=== PATIENT | female | born 1995 ===

== ENCOUNTER 2020-05-04 15:11 | Outpatient (REF) | payer MEDICAID, SELFPAY | END 2020-05-04 15:12 | disposition home or self-care (01) | LOC: HO.LAB 15:11 | PROVIDERS: Visit Provider Internal Medicine | DX: Z20.822 Contact with and (suspected) exposure to COVID-19 (principal) | CPT/HCPCS: 36415; C9803; U0003 ==

== ENCOUNTER 2020-05-21 12:30 | Emergency (ER) | payer MEDICAID, SELFPAY ==
[2020-05-21 12:47] VITALS: BP 108/44; PULSE 67; RESP 16; TEMP 36.6; O2SAT 96; BMI 28.1
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
--- NOTE | 2020-05-21 13:21 | XR_ITS ---
EXAMINATION: XR RIBS, RIGHT CLINICAL INFORMATION: Injury, evaluate for fracture COMPARISON: None TECHNIQUE: 3 views of the right ribs were obtained. FINDINGS: Lungs are clear. No consolidation, pneumothorax, or pleural effusion. The cardiomediastinal silhouette and pulmonary vasculature are normal. Osseous structures are unremarkable. Ribs are intact. No fractures are identified. XR/XR ribs RT min 3V w CXR1V IMPRESSION: Unremarkable examination.
== END 2020-05-21 14:14 | disposition home or self-care (01) ==
PROVIDERS: Emergency Provider Internal Medicine
DX: S29.011A Strain of muscle and tendon of front wall of thorax, initial encounter (principal); R07.81 Pleurodynia; X50.9XXA Other and unspecified overexertion or strenuous movements or postures, initial encounter; Y93.9 Activity, unspecified; Y92.9 Unspecified place or not applicable; Y99.9 Unspecified external cause status; Z79.899 Other long term (current) drug therapy
CPT/HCPCS: 71101; 99283

== ENCOUNTER 2020-07-30 14:51 | Emergency (ER) | payer MEDICAID, SELFPAY ==
--- NOTE | ~2020-07-30 | XR_ITS ---
EXAMINATION: XR CHEST CLINICAL INFORMATION: Chest pain COMPARISON: Chest radiograph 05/21/2020 TECHNIQUE: Frontal view of the chest was obtained. FINDINGS: Once again, no significant abnormality is noted involving the heart, lungs, mediastinum, bony thorax or soft tissues. XR/XR chest 1V IMPRESSION: Unremarkable examination.
[2020-07-30 15:09] VITALS: BP 109/69; PULSE 72; RESP 18; TEMP 36.4; O2SAT 100; BMI 26.9
--- NOTE | 2020-07-30 16:06 | ED.GENADULT ---
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, no shortness of breath no abdominal pain no nausea no vomiting Related Data Previous Rx's Medication Instructions Recorded cyclobenzaprine 10 mg PO TID PRN #20 tab 05/21/20 lidocaine [Lidoderm] 1 patch TOPICAL DAILY #15 ea 05/21/20 naproxen 375 mg PO BID PRN #20 tab 05/21/20 ibuprofen 600 mg PO Q6H PRN #20 tab 07/30/20 lidocaine 1 patch TOPICAL DAILY PRN #15 ea 07/30/20 Allergies Allergy/AdvReac Type Severity Reaction Status Date / Time No Known Allergies Allergy Verified 07/30/20 15:11 Review of Systems Review of Systems: Positive for right-sided rib and chest pain with movement Negatives are no fever no chills no dizziness no weakness no shortness of breath no palpitations no exertional symptoms no radiation of the pain no abdominal pain no nausea no vomiting no numbness weakness or tingling Yes all other systems are reviewed and are negative PMFSH Past Medical History Source: nursing notes reviewed Medical History No known health problems Social History Social History Advance Directives: No Advance Directives Information Provided: No Physical Exam Vital Signs: Vital Signs: Last Vital Signs Temp 97.6 F 07/30/20 15:09 Pulse 72 07/30/20 15:09 Resp 18 07/30/20 15:09 BP 109/69 07/30/20 15:09 Pulse Ox 100 07/30/20 15:09 Body Mass Index 26.9 General appearance is no acute distress, common cooperative Head is normocephalic atraumatic Neck is supple nontender The chest breath sounds are clear to auscultation bilaterally with full symmetric breath sounds, there is tenderness to the chest wall on the right lateral chest, pain is easily reproduced with movement and deep breath The abdomen is soft nontender The extremities no edema, no calf tenderness or swelling, full range of motion x4 Skin no rash Neuro no focal deficit Course Course Course Narrative: Right rib x-ray and chest x-ray were normal, exam is consistent with an injury to the muscles of the chest wall and patient is discharged Discharge Plan Discharge Clinical Impression: Muscle strain of chest wall Patient Disposition: Home, Self-Care Additional Instructions: Chest x-ray was normal, most likely you have strained muscle on the right side of the chest wall You can try lidocaine patch, Motrin, Tylenol You can take extra-strength Tylenol available [id number] 500 mg 2 tablets for a total of a 1000 mg 3 times a day as needed Follow with primary doctor Return any concerns Prescriptions: New lidocaine 5 % adhesive patch,medicated 1 patch topical DAILY PRN (Reason: pain) Qty: 15 RF: 0 ibuprofen 600 mg tablet 600 mg PO Q6H PRN (Reason: pain) Qty: 20 RF: 0 No Action cyclobenzaprine 10 mg tablet 10 mg PO TID PRN (Reason: muscle spasm) Qty: 20 RF: 0 lidocaine [Lidoderm] 5 % adhesive patch,medicated 1 patch topical DAILY Qty: 15 RF: 0 naproxen 375 mg tablet 375 mg PO BID PRN (Reason: pain) Qty: 20 RF: 0 Stand Alone Forms: Work/School Release Interventions: ED Discharge Assessment Last Done: 07/30/20 16:45 Discharge Date/Time: 07/30/20 16:46
== END 2020-07-30 16:46 | disposition home or self-care (01) ==
PROVIDERS: Emergency Provider Emergency Medicine
DX: R10.30 Lower abdominal pain, unspecified (principal); R07.81 Pleurodynia; Z79.899 Other long term (current) drug therapy
CPT/HCPCS: 71045; 99283

== ENCOUNTER 2020-12-06 15:31 | Emergency (ER) | payer OTHER, MEDICAID, SELFPAY ==
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
[2020-12-06 16:21] VITALS: BP 121/44; PULSE 62; RESP 16; TEMP 37; O2SAT 95; BMI 27.8
[2020-12-06] MEDS: Acetaminophen 325 MG TABLET 650 MG PO (16:28)
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
== END 2020-12-06 19:02 | disposition home or self-care (01) ==
PROVIDERS: Emergency Provider Emergency Medicine
DX: S39.012A Strain of muscle, fascia and tendon of lower back, initial encounter (principal); V89.2XXA Person injured in unspecified motor-vehicle accident, traffic, initial encounter; Y93.9 Activity, unspecified; Y92.410 Unspecified street and highway as the place of occurrence of the external cause; Y99.9 Unspecified external cause status
CPT/HCPCS: 72040; 72100; 99283; 99284

== ENCOUNTER 2021-07-19 09:27 | Emergency (ER) | payer MEDICAID, SELFPAY ==
--- NOTE | ~2021-07-19 | US_ITS ---
EXAMINATION: US OBSTETRICAL ULTRASOUND CLINICAL INFORMATION: Vaginal bleeding, . COMPARISON: None. LMP: 06/03/2021. Gestational age by maternal dates is 6 weeks and 4 days. Estimated date of delivery by maternal dates is 02/28/2022. TECHNIQUE: Transabdominal imaging of pelvis is performed. FINDINGS: There is nonvisualization of distal sac, yolk sac or pole. MATERNAL ADNEXA: The right maternal ovary measures 2.9 x 2.5 x 2.4 cm. There is a small corpus luteal cyst measuring 1.7 x 1.2 x 1.4 cm. Adjacent and medial to the right ovary isn't avascular solid echogenic area question exophytic fibroid or an ectopic. It measures 1.2 x 0.9 x 0.9 cm. The left maternal ovary measures 2.2 x 2.1 x 2.1 cm. No lesion seen There is no significant maternal adnexal mass. No maternal pelvic ascites. US/US OB pelvic and transvaginal IMPRESSION: Intrauterine gestational sac, pole or yolk sac is not seen. There is solid echogenic lesion adjacent to the right ovary measured measuring 1.2 x 0.9 x 0.9 cm. Differential diagnoses includes exophytic fibroid versus an ectopic. Recommend follow-up ultrasound in 1-2 weeks and ROBOTIC MAINTENANCE TECHNICIAN consultation
--- NOTE | ~2021-07-19 | US_ITS ---
EXAMINATION: US OBSTETRICAL ULTRASOUND CLINICAL INFORMATION: Vaginal bleeding, . COMPARISON: None. LMP: 06/03/2021. Gestational age by maternal dates is 6 weeks and 4 days. Estimated date of delivery by maternal dates is 02/28/2022. TECHNIQUE: Transabdominal imaging of pelvis is performed. FINDINGS: There is nonvisualization of distal sac, yolk sac or pole. MATERNAL ADNEXA: The right maternal ovary measures 2.9 x 2.5 x 2.4 cm. There is a small corpus luteal cyst measuring 1.7 x 1.2 x 1.4 cm. Adjacent and medial to the right ovary isn't avascular solid echogenic area question exophytic fibroid or an ectopic. It measures 1.2 x 0.9 x 0.9 cm. The left maternal ovary measures 2.2 x 2.1 x 2.1 cm. No lesion seen There is no significant maternal adnexal mass. No maternal pelvic ascites. US/US pelvic ovarian doppler IMPRESSION: Intrauterine gestational sac, pole or yolk sac is not seen. There is solid echogenic lesion adjacent to the right ovary measured measuring 1.2 x 0.9 x 0.9 cm. Differential diagnoses includes exophytic fibroid versus an ectopic. Recommend follow-up ultrasound in 1-2 weeks and BETA TESTER consultation
[2021-07-19 09:45] VITALS: BP 114/45; PULSE 63; RESP 18; TEMP 36.7; O2SAT 100; BMI 27.1
[2021-07-19 10:02] VITALS: BP 113/58; PULSE 63; RESP 14; TEMP 36.7; O2SAT 100
--- NOTE | 2021-07-19 10:27 | ED_ITS ---
HPI - General Chief complaint: Vaginal Bleeding Stated complaint: vag bleeding - ?6wks preg Time Seen by Provider: 07/19/21 09:56 Source: patient Mode of arrival: ambulatory Limitations: no limitations History of Present Illness HPI Narrative: 26 y/o female, G0PO, presents for positive test at home 2 days ago, and some spotting. Patient's last menstrual period was June 03. The spotting is scant and only when she wipes. Red spots on toilet paper. Not enough blood to even go onto a pad. No clots. She is on the depot shot. Patient has never been . Denies nausea or vomiting, denies pelvic pain or cramping, denies vaginal discharge or vaginal odor, denies abdominal pain. No fevers. Patient has never seen an photograph editor and did not start prenatals yet. Patient states the man she is sexually active with has another sex partner and she has concerns for sexually transmitted diseases MD Complaint: vaginal bleeding Onset (ago): day(s) (1) Associated symptoms: denies other symptoms Vaginal discharge: none Vaginal bleeding: other (scant spotting) Date of Last Menstrual Period: 06/03/21 Patient : Yes care: none Related Data Previous Rx's Medication Instructions Recorded cyclobenzaprine 10 mg tablet 10 mg PO TID PRN #20 tab 05/21/20 lidocaine 5 % topical patch 1 patch TOPICAL DAILY #15 ea 05/21/20 (Lidoderm) naproxen 375 mg tablet 375 mg PO BID PRN #20 tab 05/21/20 ibuprofen 600 mg tablet 600 mg PO Q6H PRN #20 tab 07/30/20 lidocaine 5 % topical patch 1 patch TOPICAL DAILY PRN #15 ea 07/30/20 cyclobenzaprine 10 mg tablet 10 mg PO TID PRN #18 tab 12/06/20 naproxen 500 mg tablet 500 mg PO BID PRN #20 tab 12/06/20 prenat.vits,cheri,[id number] 1 tab PO BEDTIME 30 Days #30 tab 07/19/21 Allergies Allergy/AdvReac Type Severity Reaction Status Date / Time No Known Allergies Allergy Verified 07/30/20 15:11 Review of Systems Constitutional: Constitutional: Denies body ache(s), Denies chills, Denies fatigue, Denies fever(s), Denies headache(s), Denies malaise and Denies weakness Eyes: Eyes: Denies blurry vision and Denies diplopia ENT: Denies vertigo, Denies dizziness, Denies otalgia, Denies headache(s), Denies mouth pain, Denies post nasal drip, Denies sinus pain, Denies sinus pressure, Denies sore throat and Denies throat swelling Cardiovascular: Cardiovascular: Denies chest pain, Denies syncope, Denies leg edema, Denies lightheadedness, Denies Loss of Consciousness, Denies palpitations and Denies dyspnea Respiratory: Respiratory: Denies chest congestion, Denies cough and Denies dyspnea Gastrointestinal: Gastrointestinal: Denies abdominal pain, Denies hematochezia, Denies constipation, Denies diarrhea and Denies vomiting Genitourinary: Genitourinary: Reports abnormal vaginal bleeding, Reports amenorrhea, Denies hematuria, Denies genital pruritis, Denies genital lesions, Denies dysuria, Denies flank pain, Denies urinary incontinence, Denies urinary urgency, Denies vaginal discharge, Denies vaginal odor and Denies vaginal pruritus Musculoskeletal: Musculoskeletal: Reports no additional musculoskeletal complaints and Denies back pain Integumentary/Breasts: Skin/Breast: Reports system reviewed and no additional complaints, except as docu Neurologic: Denies confusion, Denies vertigo, Denies dizziness, Denies syncope, Denies headache(s) and Denies weakness Psychiatric: Psychiatric: Denies anxiety, Denies confusion and Denies depression Endocrine: Endocrine: Denies fatigue and Denies palpitations Allergic/Immunologic: Allergic/Immunologic: Denies throat swelling PMFSH Past Medical History Medical History No known health problems Date of Last Menstrual Period: 06/03/21 Social History Social History Advance Directives: No Advance Directives Information Provided: No Patient : Yes Physical Exam Vital Signs: Vital Signs: Last Vital Signs Temp 98.1 F 07/19/21 10:02 Pulse 63 07/19/21 10:02 Resp 14 07/19/21 10:02 BP 113/58 L 07/19/21 10:02 Pulse Ox 100 07/19/21 10:02 BMI result Body Mass Index 27.1 Const: General: No confusion Nutritional Appearance: well nourished Orientation/consciousness: No confusion Limitations: no limitations HEENT: Head: Yes normal to inspection, Yes normocephalic and Yes atraumatic Ears: hearing grossly normal bilaterally, external ears normal, TM's normal bilaterally and EAC's normal General nose exam: Normal external nose present Face and sinus: Yes normal facial exam and Yes sinuses nontender Mouth: Normal oral and palatal mucosa present Throat: Yes posterior oropharynx normal Eyes: Conjunctivae: conjunctivae normal Pupils: Equal, round and reactive pupils present EOM: EOMs intact bilaterally Neck: Neck: Yes full ROM, Yes no lymphadenopathy and Yes supple Resp: Effort & Inspection: normal respiratory effort and able to speak in complete sentences Auscultation: clear to auscultation bilaterally, no crackles, no rales, no rhonchi and no wheezes Cardio: Rate: regular rate Rhythm: regular rhythm Heart sounds: S1 normal heart sound present and S2 normal heart sound present GI: Inspection: Yes normal to inspection Palpation (GI): Soft to palpation, nontender, no guarding and not rigid Percussion: Yes normal to percussion Auscultation: normal bowel sounds : External Female Exam: normal external appearance, normal appearance of the urethra, No erythema, No externally tender, No external swelling and No lesion Speculum Exam - Vagina: normal appearance of the vagina, normal palpation, not erythematous, vaginal bleeding (scant), No tissue present in vagina and nontender Speculum Exam - Cervix: normal appearance of the cervix, Cervical os closed and nontender Bimanual exam- vagina & uterus: normal bimanual exam, normal palpation and No Cervical tenderness present Bimanual Exam- Adnexa, other: normal adnexae, no tenderness and No adnexal tenderness OB/external & speculum: vaginal bleeding (scant); No no tissue noted in vagina Skin: General skin exam: no rashes or lesions noted Neuro: General: No confusion Cranial nerves: Yes Equal, round and reactive pupils present Extrem: General: Yes normal to inspection and Yes full ROM Psych: Appearance: grossly normal Affect: normal affect Attitude: cooperative Thought process: Normal thought process present Course Course Course Narrative: 26-year-old female who tested positive at home for 2 days ago presents with scant spotting. Patient also has concerns for STIs. On exam, patient has stable vitals, benign abdominal exam, no adnexal tenderness or cervical motion tenderness. On speculum exam, no tissue or clots in vaginal vault, scant vaginal bleeding, os is closed. Ordered labs, ABO Rh, hCG quant, and STD testing including gonorrhea, chlamydia, bacterial vaginosis, Trichomonas, HIV, hepatitis, yeast. Ordered ultrasound both Doppler and transvaginal. Reevaluation(s) Reevaluation #1: US/US pelvic ovarian doppler IMPRESSION: Intrauterine gestational sac, pole or yolk sac is not seen. There is solid echogenic lesion adjacent to the right ovary measured measuring 1.2 x 0.9 x 0.9 cm. Differential diagnoses includes exophytic fibroid versus an ectopic. Recommend follow-up ultrasound in 1-2 weeks and ELECTRONIC SYSTEM ENGINEER consultation HCG 731. [place] texted Dr Finn, who will come in and see the patient in the ED. Reevaluation #2: Spoke with Dr. Finn, who came and saw the patient. He stated patient could be having an early intrauterine , spontaneous , or ectopic . He discussed D&C versus expectant management with her. She would like to do expected management. He would like her HCG to be drawn in 48 hours and has sent a lab order to [facility] lab. Patient instructed to go to Lab on FridayJuly 21, to get hCG drawn. He will draw another hCG when he sees her on the office on Friday. His office will call her for an appointment on Friday. Patient verbalized agreement and understanding of this plan. Patient had concern for STDs, we tested her today, but she wants to wait for the results to come back before being treated. I relayed this information to Dr. Finn Give return precautions for worsening vaginal bleeding, pelvic pain, abdominal pain nausea or vomiting. Patient's chlamydia and gonorrhea just returned, both are negative, I told pat ient is results. MDM - OB/Uterine Contractions Lab Data Result diagrams: 07/19/21 10:40 07/19/21 10:40 Labs: Lab Results 07/19/21 07/19/21 07/19/21 Range/Units 10:40 10:40 10:40 WBC 8.0 (4.8-10.8) X10*3/uL RBC 4.38 (4.20-5.50) X10*6/uL Hgb 12.2 (12.0-16.0) g/dl Hct 37.8 (37.0-47.0) % MCV 86.3 (80.0-98.0) fL MCH 27.9 (27.0-33.0) pg MCHC 32.3 (31.0-35.0) g/dl RDW 14.6 (11.0-16.0) % Plt Count 425 H (160-400) X10*3/uL MPV 9.6 (9.4-12.3) fL Immature Gran % (Auto) 0.5 H (0.0-0.4) % Neut % (Auto) 71.7 (45-73) % Lymph % (Auto) 20.4 (20-40) % [place] % (Auto) 5.7 (2-11) % Eos % (Auto) 1.5 (0-4) % Baso % (Auto) 0.2 (0-2) % Lymph # (Auto) 1.6 (1.2-4.9) X10*3/uL [place] # (Auto) 0.5 (0.1-1.2) X10*3/uL Eos # (Auto) 0.1 (0.0-0.4) X10*3/uL Baso # (Auto) 0.0 (0.0-0.2) X10*3/uL Abs Immat Gran (auto) 0.04 H (0.00-0.03) X10*3/uL Absolute Neuts (auto) 5.8 (2.0-8.3) x10*3/uL Absolute Nucleated RBC 0.000 (0.0-0.012) X10*3/uL Nucleated RBC % (auto) 0.0 (0.0-0.2) /100WBC Sodium 138 (135-145) mmol/L Potassium 4.1 (3.3-5.1) mmol/L Chloride 107 (96-108) mmol/L Carbon Dioxide 24 (22-29) mmol/L Anion Gap 11 L (12-20) BUN 7 L (9-16) mg/dL Creatinine 0.74 (0.5-1.4) mg/dL Estim Creat Clear Calc 101.7 Estimated GFR > 60 Random Glucose 90 (60-115) mg/dL Calcium 9.6 (8.4-10.2) mg/dL Total Bilirubin 0.3 (0.0-1.0) mg/dL AST 20 (5-31) U/L ALT 26 (0-31) U/L Alkaline Phosphatase 61 (39-117) U/L Total Protein 7.6 (6.5-8.0) g/dL Albumin 4.2 (3.5-5.0) g/dL Beta HCG, Quant 731 mIU/mL Urine Color YELLOW Urine Appearance HAZY Urine pH 6.0 (5.0-8.0) Ur Specific [place] 1.025 (1.005-1.025) Urine Protein NEG (NEG-TRACE) MG/DL Urine Glucose (UA) NEG (NEG) MG/DL Urine Ketones NEG (NEG) MG/DL Urine Blood 3+ H (NEG) Urine Nitrite NEG (NEG) Ur Leukocyte Esterase NEG (NEG) Urine RBC 0-2 (0) /HPF Urine WBC 0-2 (0-4) /HPF Ur Squamous Epith Cells 2+ /LPF Amorphous Sediment 1+ /LPF Urine Bacteria 1+ /LPF Urine Mucus 2+ /LPF Urine Test (NEGATIVE) Chlam trachomat DNA PCR (Not Detect.) N.gonorrhoeae DNA (PCR) (Not Detect.) Blood Type 07/19/21 07/19/21 07/19/21 Range/Units 10:40 10:40 10:50 WBC (4.8-10.8) X10*3/uL RBC (4.20-5.50) X10*6/uL Hgb (12.0-16.0) g/dl Hct (37.0-47.0) % MCV (80.0-98.0) fL MCH (27.0-33.0) pg MCHC (31.0-35.0) g/dl RDW (11.0-16.0) % Plt Count (160-400) X10*3/uL MPV (9.4-12.3) fL Immature Gran % (Auto) (0.0-0.4) % Neut % (Auto) (45-73) % Lymph % (Auto) (20-40) % [place] % (Auto) (2-11) % Eos % (Auto) (0-4) % Baso % (Auto) (0-2) % Lymph # (Auto) (1.2-4.9) X10*3/uL [place] # (Auto) (0.1-1.2) X10*3/uL Eos # (Auto) (0.0-0.4) X10*3/uL Baso # (Auto) (0.0-0.2) X10*3/uL Abs Immat Gran (auto) (0.00-0.03) X10*3/uL Absolute Neuts (auto) (2.0-8.3) x10*3/uL Absolute Nucleated RBC (0.0-0.012) X10*3/uL Nucleated RBC % (auto) (0.0-0.2) /100WBC Sodium (135-145) mmol/L Potassium (3.3-5.1) mmol/L Chloride (96-108) mmol/L Carbon Dioxide (22-29) mmol/L Anion Gap (12-20) BUN (9-16) mg/dL Creatinine (0.5-1.4) mg/dL Estim Creat Clear Calc Estimated GFR Random Glucose (60-115) mg/dL Calcium (8.4-10.2) mg/dL Total Bilirubin (0.0-1.0) mg/dL AST (5-31) U/L ALT (0-31) U/L Alkaline Phosphatase (39-117) U/L Total Protein (6.5-8.0) g/dL Albumin (3.5-5.0) g/dL Beta HCG, Quant mIU/mL Urine Color Urine Appearance Urine pH (5.0-8.0) Ur Specific [place] (1.005-1.025) Urine Protein (NEG-TRACE) MG/DL Urine Glucose (UA) (NEG) MG/DL Urine Ketones (NEG) MG/DL Urine Blood (NEG) Urine Nitrite (NEG) Ur Leukocyte Esterase (NEG) Urine RBC (0) /HPF Urine WBC (0-4) /HPF Ur Squamous Epith Cells /LPF Amorphous Sediment /LPF Urine Bacteria /LPF Urine Mucus /LPF Urine Test POSITIVE H (NEGATIVE) Chlam trachomat DNA PCR NOT DETECTED (Not Detect.) N.gonorrhoeae DNA (PCR) NOT DETECTED (Not Detect.) Blood Type A Positive Discharge Plan Discharge Clinical Impression: Early stage of , Vaginal bleeding Patient Disposition: Home, Self-Care Additional Instructions: Please call Dr Finn for an appointment on Friday at [phone] [facility] must [facility], and get your blood drawn for hormone test on Friday morning. The lab closes at noon, please get there before then. In you need another hormone drawn on Friday, they can do that in the office when you see Dr. Finn If you have pelvic pain, abdominal pain, heavy vaginal bleeding, nausea vomiting, please return to the emergency room Prescriptions: New tahminaat.vits,cheri,iur-[id number] Tablet 1 tab PO BEDTIME 30 Days Qty: 30 0RF No Action lidocaine 5 % adhesive patch,medicated 1 patch topical DAILY PRN (Reason: pain) Qty: 15 0RF Rx Instructions: leave on most painful area for up to 12 hrs ibuprofen 600 mg tablet 600 mg PO Q6H PRN (Reason: pain) Qty: 20 0RF cyclobenzaprine 10 mg tablet 10 mg PO TID PRN (Reason: muscle spasm) Qty: 20 0RF lidocaine [Lidoderm] 5 % adhesive patch,medicated 1 patch topical DAILY Qty: 15 0RF Rx Instructions: leave on most painful area for up to 12 hrs naproxen 375 mg tablet 375 mg PO BID PRN (Reason: pain) Qty: 20 0RF naproxen 500 mg tablet 500 mg PO BID PRN (Reason: pain) Qty: 20 0RF cyclobenzaprine 10 mg tablet 10 mg PO TID PRN (Reason: pain) Qty: 18 0RF Rx Instructions: side effect is drowsiness. Do not take at work or while driving. Referrals: Bruce Finn MD [Physician] - 2 days
[2021-07-19 10:56] LABS: Appearance Urine HAZY; Color Urine YELLOW; Glucose Urine UA NEG (NEG); Leukocyte Esterase Urine NEG (NEG); Nitrite Urine NEG (NEG); Specific Gravity - Urine 1.025 (1.005-1.025); Urine Blood 3+ (NEG); Urine Ketones NEG (NEG); Urine Protein NEG (NEG-TRACE)
[2021-07-19 10:57] LABS: UPreg QC Valid YES; Urine Pregnancy POSITIVE (NEGATIVE)
[2021-07-19 11:33] LABS: MANUAL DIFF FLAG NO
[2021-07-19 11:35] LABS: Bacteria Urine 1+ /LPF; Mucus Urine 2+ /LPF; RBC Urine 0-2 /HPF (0); Squamous Epithelial Cell Urine 2+ /LPF; WBC Urine 0-2 /HPF (0-4)
[2021-07-19 11:36] LABS: Amorphous Sediment Urine 1+ /LPF; Basophils Percent Auto 0.2 % (0-2); Eosinophils Absolute Auto 0.1 X10*3/uL (0.0-0.4); Eosinophils Percent Auto 1.5 % (0-4); Hematocrit 37.8 % (37.0-47.0); Hemoglobin 12.2 g/dl (12.0-16.0); Imm Gran Abs Auto 0.04 X10*3/uL (0.00-0.03); Imm Gran Pct Auto 0.5 % (0.0-0.4); Lymphocytes Absolute Auto 1.6 X10*3/uL (1.2-4.9); Lymphocytes Percent Auto 20.4 % (20-40); Mean Corpuscular HGB Conc 32.3 g/dl (31.0-35.0); Mean Corpuscular Hemoglobin 27.9 pg (27.0-33.0); Mean Corpuscular Volume 86.3 fL (80.0-98.0); Mean Platelet Volume 9.6 fL (9.4-12.3); Monocytes Absolute Auto 0.5 X10*3/uL (0.1-1.2); Monocytes Percent Auto 5.7 % (2-11); Neutrophils Absolute Auto 5.8 x10*3/uL (2.0-8.3); Neutrophils Percent Auto 71.7 % (45-73); Platelet Count 425 X10*3/uL (160-400); Red Blood Count 4.38 X10*6/uL (4.20-5.50); Red Cell Distribution Width 14.6 % (11.0-16.0)
[2021-07-19 11:49] LABS: Alanine Aminotransferase 26 U/L (0-31); Albumin Level 4.2 g/dL (3.5-5.0); Alkaline Phosphatase 61 U/L (39-117); Anion Gap 11 (12-20); Aspartate Amino Transferase 20 U/L (5-31); Bilirubin Total 0.3 mg/dL (0.0-1.0); Blood Urea Nitrogen 7 mg/dL (9-16); Calcium 9.6 mg/dL (8.4-10.2); Carbon Dioxide 24 mmol/L (22-29); Chloride 107 mmol/L (96-108); Creatinine Clr Calc Pharmacy 101.7; Estimated Glomerular Filt Rate > 60; Glucose Random 90 mg/dL (60-115); Potassium 4.1 mmol/L (3.3-5.1); Sodium 138 mmol/L (135-145); Total Protein 7.6 g/dL (6.5-8.0)
[2021-07-19 11:55] LABS: HCG Quantitative 731 mIU/mL
--- NOTE | 2021-07-19 13:26 | PM.GYNCN ---
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 Blood type A positive . HCG 571. ultrasound was done showed the following: No Intrauterine gestational sac, pole or yolk sac is not seen. ? There is solid echogenic lesion adjacent to the right ovary measured measuring 1.2 x 0.9 x 0.9 cm. Differential diagnoses includes exophytic fibroid versus an ectopic. Recommend follow-up ultrasound in 1-2 weeks and STAFF OCCUPATIONAL THERAPIST consultation cc:: CC: STAFF OCCUPATIONAL THERAPIST - Review of Systems Review of Systems ROS Unobtainable: All systems reviewed & are unremarkable except as noted in HPI and below Cardiovascular: Denies Palpatations, Loss of consciousness or Chest pain Respiratory: Denies Cough, Wheezing or Shortness of breath Musculoskeletal: Denies Low back pain Gastrointestinal: Denies Heartburn, Constipation, Diarrhea, Nausea or Vomiting Genitourinary: Denies Pain with urination, Burning with urination or Urinary frequency Neurological: Denies Migranes Psychological: Denies Depression OB PMFSH Past Medical History Medical History No known health problems Social History Social History Advance Directives: No Advance Directives Information Provided: No Patient : Yes Meds Allergies Allergy/AdvReac Type Severity Reaction Status Date / Time No Known Allergies Allergy Verified 07/30/20 15:11 AIRPLANE CABIN ATTENDANT Physical Exam Vitals Vital signs: Temp Pulse Resp BP Pulse Ox 98.1 F 63 14 113/58 L 100 07/19/21 10:02 07/19/21 10:02 07/19/21 10:02 07/19/21 10:02 07/19/21 10:02 BMI result Body Mass Index 27.1 Constitutional General Appearance: Healthy appearing, Well-nourished and Well-developed Psychiatric Mood and Affect: active and alert, normal mood and normal affect Skin Appearance: No rashes and No lesions Lungs Respiratory Effort: No intercostal retractions Auscultation: Clear to auscultation Cardiovascular Auscultation: RRR Abdomen Auscultation/Inspection/Palpation: Normal bowel sounds, Soft, Non-distended and No tenderness Female Genitalia (Pelvic) Exam: Deferred Additional Comments: Pelvic exam done by JUANA Allred in the emergency room was negative , cervical motion tenderness no uterine or adnexal tenderness AIRPLANE CABIN ATTENDANT - Results Labs CBC & Chem 7: 07/19/21 10:40 07/19/21 10:40 Labs: Short CBC 07/19/21 Range/Units 10:40 WBC 8.0 (4.8-10.8) X10*3/uL Hgb 12.2 (12.0-16.0) g/dl Hct 37.8 (37.0-47.0) % Plt Count 425 H (160-400) X10*3/uL BMP 07/19/21 10:40 Sodium 138 Potassium 4.1 Chloride 107 Carbon Dioxide 24 BUN 7 L Creatinine 0.74 Calcium 9.6 Liver Function 07/19/21 Range/Units 10:40 Total Bilirubin 0.3 (0.0-1.0) mg/dL AST 20 (5-31) U/L ALT 26 (0-31) U/L Alkaline Phosphatase 61 (39-117) U/L Albumin 4.2 (3.5-5.0) g/dL Urine 07/19/21 07/19/21 Range/Units 10:40 10:40 Urine Color YELLOW Urine Appearance HAZY Urine pH 6.0 (5.0-8.0) Ur Specific [place] 1.025 (1.005-1.025) Urine Protein NEG (NEG-TRACE) MG/DL Urine Glucose (UA) NEG (NEG) MG/DL Urine Test POSITIVE H (NEGATIVE) Imaging US - abdomen: Radiologist's impression: ITS Impressions Doppler Study Ultrasound 07/19/21 12:16 IMPRESSION: Intrauterine gestational sac, pole or yolk sac is not seen. There is solid echogenic lesion adjacent to the right ovary measured measuring 1.2 x 0.9 x 0.9 cm. Differential diagnoses includes exophytic fibroid versus an ectopic. Recommend follow-up ultrasound in 1-2 weeks and STAFF OCCUPATIONAL THERAPIST consultation Pelvic/Transvag US 07/19/21 12:16 IMPRESSION: Intrauterine gestational sac, pole or yolk sac is not seen. There is solid echogenic lesion adjacent to the right ovary measured measuring 1.2 x 0.9 x 0.9 cm. Differential diagnoses includes exophytic fibroid versus an ectopic. Recommend follow-up ultrasound in 1-2 weeks and STAFF OCCUPATIONAL THERAPIST consultation Assessment and Plan (1) Early stage of : Status: Acute Discussed with the patient the level of HCG level and the findings on pelvic ultrasound, no intrauterine , solid echogenic lesion adjacent to the right ovary measuring 1.2 x 0.9 cm , differential diagnosis includes exophytic fibroid versus ectopic .? The differential diagnosis discussed with the patient included either early ectopic versus early SAB with a small possibility of normal intrauterine gestation.? Options of treatment were discussed with the patient includin-? Expected management for the coming 48 hours and repeat HCG with or without pelvic Ultrasound. 2-? Treat as if she has tubal with methotrexate or 3-? Uterine aspiration.? All the pros and cons and risks and benefits of each treatment approach were discussed with the patient.? 1-The advantage of expectant management were discussed with the patient, being prevention of possible exposure to teratogenicity or risk of spontaneous in case of an early normal , the risk being delayed diagnosis and treatment of ectopic and possible rupture with all its possible consequences including intra-abdominal bleed and possible .? 2- Explained to the patient that the use of curettage as a diagnostic tool is limited by the potential for disruption of a viable .? In addition, discussed with the patient that the sensitivity of curettage in finding chorionic villi is only 70 percent. [place] endometrial biopsy is even less sensitive than curettage for detection of villi; sensitivities reported is between 30 and 60 percent. If curettage is performed, serum HCG levels can be followed postcurettage if histopathology does not confirm the clinical impression. When an IUP has been evacuated, hCG levels should drop by at least 15 percent the day after evacuation.? There might be an advantage of performing aspiration only on patients with both an HCG concentration below the discriminatory zone and a low doubling rate, since 30 percent of these patients have a nonviable intrauterine gestation, and the remainder have an ectopic . Knowing the results of aspiration avoids unnecessary methotrexate treatment of the 30 percent of patients without ectopic . 3-Furthermore discussed with the patient the 3rd option which is treatment with methotrexate without uterine aspiration. The advantage of early treatment of presumed tubal with methotrexate was discussed with the patient, including but not limited to reducing the risk of ruptured ectopic with all its potential consequences, in addition discussed with the patient methotrexate treatment risks including but not limited to, possible exposure to methotrexate to a normal intra and and increase the risk of spontaneous and congenital anomalies.? The patient decided to proceed with expectant management, HCG q 48 hoursx2 and fu on Friday melinda the office and treat accordingly.? Instructions given to the patient to the importance of compliance and timely HCG follow-up q 48 hours ( Friday and Friday) for an early and accurate diagnosis, and follow-up in the office in on Friday, appointment given ?and to call or go to the emergency room if pain or vaginal bleeding occurs, all questions answered, the patient verbalized understanding and agreed with the plan.? Follow-up in 48 hours for further management.
[2021-07-19 13:33] LABS: CT PCR NOT DETECTED (Not Detect.); NG PCR NOT DETECTED (Not Detect.)
[2021-07-20 07:54] LABS: HBsAGNum1 0.59 S/CO (0.00-0.99); HIV AB/AG Nonreactive (Nonreactive); HIV Num 1 0.06 S/CO (0.00-0.99); Hepatitis B Surface Antigen Negative (Negative); ~HepC Num1 0.21 S/CO (0.00-0.79); ~Hepatitis C Antibody Nonreactive (Nonreactive)
[2021-07-20 09:36] LABS: Hepatitis A Antibody IgM 0.23 Index (0-0.79); Hepatitis B Core Antibody Nonreactive (Nonreactive); ~Hepatitis A Antibody IgM Nonreactive (Nonreactive); ~Hepatitis B Surface Antibody NONREACTIVE (Nonreactive)
== END 2021-07-19 14:19 | disposition home or self-care (01) ==
PROVIDERS: Physician Assistant; Emergency Provider Emergency Medicine; PCP Family Medicine
DX: O20.9 Hemorrhage in early pregnancy, unspecified (principal); Z3A.01 Less than 8 weeks gestation of pregnancy
CPT/HCPCS: 36415; 76801; 76817; 80053; 81001; 81003; 81025; 84702; 85025; 86704; 86706; 86709; 86803; 86900; 86901; 87340; 87389; 87480; 87491; 87510; 87591; 87660; 93975; 99284; 99285

== ENCOUNTER 2021-07-21 10:49 | Outpatient (REF) | payer MEDICAID, SELFPAY ==
[2021-07-21 12:11] LABS: HCG Quantitative 578 mIU/mL
== END 2021-07-21 10:50 | disposition home or self-care (01) ==
LOC: HO.LAB 10:49
PROVIDERS: PCP Family Medicine; Visit Provider Obstetrics & Gynecology
DX: Z34.90 Encounter for supervision of normal pregnancy, unspecified, unspecified trimester (principal)
CPT/HCPCS: 36415; 84702

== ENCOUNTER 2021-07-23 11:40 | Outpatient (REF) | payer MEDICAID, SELFPAY ==
--- NOTE | ~2021-07-23 | US_ITS ---
EXAMINATION: US OBSTETRICAL ULTRASOUND CLINICAL INFORMATION: Abnormally rising beta hCG COMPARISON: Previous OB ultrasound 07/19/2021 LMP: 06/03/2021. Gestational age by maternal dates is 7 weeks 1 day. Estimated date of delivery by maternal dates is 03/10/2022. TECHNIQUE: Transabdominal and transvaginal first trimester OB ultrasound FINDINGS: The uterus measures 9.1 x 3.6 x 5.4 cm in dimension. Endometrial thickness measures 1.3 cm. No intrauterine is seen. The right ovary measures 2.5 x 1.9 x 1.2 cm. There is a 2.8 x 1.5 x 2.7 cm right adnexal mass. Increased in size from 1.2 x 0.9 x 0.9 cm on 07/19/2021 exam. The left ovary is normal and measures 2.5 x 1.8 x 2.2 cm. There is no fluid in the pelvis. US/US OB pelvic and transvaginal IMPRESSION: No intrauterine seen. 2.8 x 1.5 x 2.7 cm right adnexal mass increased from 1.2 x 0.9 x 0.9 cm on previous exam questionable for ectopic .
[2021-07-23 12:30] LABS: HCG Quantitative 621 mIU/mL
== END 2021-07-23 11:41 | disposition home or self-care (01) ==
LOC: HO.LAB 11:40
PROVIDERS: PCP Family Medicine; Visit Provider Obstetrics & Gynecology
DX: O00.90 Unspecified ectopic pregnancy without intrauterine pregnancy (principal)
CPT/HCPCS: 36415; 76801; 76817; 84702; 99212

== ENCOUNTER 2021-07-23 15:48 | Emergency (ER) | payer MEDICAID, SELFPAY ==
[2021-07-23 15:59] VITALS: BP 131/62; PULSE 68; RESP 18; TEMP 36.9; O2SAT 100; BMI 27.2
[2021-07-23 16:36] LABS: MANUAL DIFF FLAG NO
[2021-07-23 16:48] LABS: Basophils Percent Auto 0.4 % (0-2); Eosinophils Absolute Auto 0.1 X10*3/uL (0.0-0.4); Eosinophils Percent Auto 1.3 % (0-4); Hematocrit 36.7 % (37.0-47.0); Hemoglobin 11.8 g/dl (12.0-16.0); Imm Gran Abs Auto 0.03 X10*3/uL (0.00-0.03); Imm Gran Pct Auto 0.3 % (0.0-0.4); Lymphocytes Absolute Auto 1.9 X10*3/uL (1.2-4.9); Lymphocytes Percent Auto 18.3 % (20-40); Mean Corpuscular HGB Conc 32.2 g/dl (31.0-35.0); Mean Corpuscular Hemoglobin 27.8 pg (27.0-33.0); Mean Corpuscular Volume 86.6 fL (80.0-98.0); Mean Platelet Volume 9.8 fL (9.4-12.3); Monocytes Absolute Auto 0.6 X10*3/uL (0.1-1.2); Neutrophils Absolute Auto 7.6 x10*3/uL (2.0-8.3); Neutrophils Percent Auto 73.7 % (45-73); Platelet Count 409 X10*3/uL (160-400); Red Blood Count 4.24 X10*6/uL (4.20-5.50); Red Cell Distribution Width 14.4 % (11.0-16.0); White Blood Count 10.3 X10*3/uL (4.8-10.8)
[2021-07-23 16:54] LABS: Alanine Aminotransferase 34 U/L (0-31); Albumin Level 4.5 g/dL (3.5-5.0); Alkaline Phosphatase 74 U/L (39-117); Anion Gap 12 (12-20); Aspartate Amino Transferase 25 U/L (5-31); Bilirubin Direct 0.2 mg/dL (0.0-0.5); Bilirubin Total 0.4 mg/dL (0.0-1.0); Blood Urea Nitrogen 7 mg/dL (9-16); Carbon Dioxide 24 mmol/L (22-29); Chloride 106 mmol/L (96-108); Estimated Glomerular Filt Rate > 60; Glucose Random 79 mg/dL (60-115); Potassium 3.8 mmol/L (3.3-5.1); Sodium 138 mmol/L (135-145)
[2021-07-23 17:00] LABS: HCG Quantitative 679 mIU/mL
--- NOTE | 2021-07-23 19:53 | ED.GENADULT ---
HPI - General Adult General Chief complaint: General Medical Stated complaint: ectopic need methotrexate sent Time Seen by Provider: 07/23/21 15:55 Source: patient Mode of arrival: ambulatory Limitations: no limitations History of Present Illness HPI narrative: 26 y/o female presents to the ER from [facility] [employer] [facility] office with reports of an ectopic . Patient was seen by Dr. Finn in the office today for follow-up. She had an hCG level on July 19 of 731 which decreased to 578 on July 21. Today her hCG level is up to 621. She had some vaginal bleeding on July 19 that has since resolved. She has no abdominal pain or cramping. She is Rh positive. She had a pelvic ultrasound that showed ?no intrauterine seen. 2.8 x 1.5 x 2.7 cm right adnexal mass increased from prior questionable for ectopic . She has never been before. complaint: Ectopic treatment w/ MTX Onset (ago): day(s) Relieving factors: none Exacerbating factors: none Associated symptoms: denies other symptoms Treatments prior to arrival: none Related Data Previous Rx's Medication Instructions Recorded prenat.vits,cheri,[id number] 1 tab PO BEDTIME 30 Days #30 tab 07/19/21 Allergies Allergy/AdvReac Type Severity Reaction Status Date / Time No Known Allergies Allergy Verified 07/23/21 13:02 Review of Systems Review of Systems: Constitutional: No Fever, No Chills s Cardiovascular: No Chest Pain, No SOB Gastrointestinal: No Nausea, No Vomiting, No Diarrhea, No abdominal Pain Genitourinary: No Dysuria, No Urinary Frequency, No Hematuria, No vaginal discharge, No vaginal bleeding Musculoskeletal: No joint pain, No Myalgias Skin: No Skin Lesions, No rash Neuro: No Weakness, No Dizziness, No Headache Psych: + Anxiety/Panic, No Depression Heme/Lymph: No Bruising, No Lymphadenopathy Endocrine: No Polyuria, No Polydipsia PMFSH Past Medical History Medical History No known health problems Surgical History History of intestinal surgery Social History Social History Advance Directives: No Advance Directives Information Provided: No Patient : Yes Physical Exam ED Vital Signs: Vital Signs - 24 hr 07/23/21 15:59 Temperature 98.4 F Pulse Rate 68 Respiratory Rate 18 Blood Pressure 131/62 Pulse Oximetry 100 BMI result Body Mass Index 27.2 Appearance: Alert. Oriented X3. No acute distress. Eyes: Pupils equal, round and reactive to light. ENT: Pharynx normal. Neck: Normal inspection. Neck supple. CVS: Normal heart rate and rhythm. Pulses normal. Respiratory: No respiratory distress. Breath sounds normal. Abdomen: Soft and nontender. +BS x4. pelvic deferred. Skin: Skin warm and dry. Normal skin color. Normal skin turgor. No rashes. Extremities: Normal inspection, normal range of motion x4. Neuro: Oriented X 3. Grossly normal, nonfocal Course Course Course Narrative: 18-year-old female presenting for treatment of ectopic . She had down trending hCG levels and vaginal bleeding. Ultrasound confirms right adnexal mass. HCG trending slightly up today. She has no abdominal pain or tenderness on examination. Bleeding has stopped. Her lab work is unremarkable. She is ordered for intramuscular methotrexate per weight based guidelines. She has already been consented by Dr. Finn. She expressed understanding of the importance of close OB follow up and labs on days 4 & 7. Stable for d/c with outpatient follow up. Medical Decision Making Lab Data Result diagrams: 07/23/21 16:32 07/23/21 16:32 Labs: Lab Results 07/23/21 07/23/21 07/23/21 Range/Units 16:32 16:32 16:32 WBC 10.3 (4.8-10.8) X10*3/uL RBC 4.24 (4.20-5.50) X10*6/uL Hgb 11.8 L (12.0-16.0) g/dl Hct 36.7 L (37.0-47.0) % MCV 86.6 (80.0-98.0) fL MCH 27.8 (27.0-33.0) pg MCHC 32.2 (31.0-35.0) g/dl RDW 14.4 (11.0-16.0) % Plt Count 409 H (160-400) X10*3/uL MPV 9.8 (9.4-12.3) fL Immature Gran % (Auto) 0.3 (0.0-0.4) % Neut % (Auto) 73.7 H (45-73) % Lymph % (Auto) 18.3 L (20-40) % [place] % (Auto) 6.0 (2-11) % Eos % (Auto) 1.3 (0-4) % Baso % (Auto) 0.4 (0-2) % Lymph # (Auto) 1.9 (1.2-4.9) X10*3/uL [place] # (Auto) 0.6 (0.1-1.2) X10*3/uL Eos # (Auto) 0.1 (0.0-0.4) X10*3/uL Baso # (Auto) 0.0 (0.0-0.2) X10*3/uL Abs Immat Gran (auto) 0.03 (0.00-0.03) X10*3/uL Absolute Neuts (auto) 7.6 (2.0-8.3) x10*3/uL Absolute Nucleated RBC 0.000 (0.0-0.012) X10*3/uL Nucleated RBC % (auto) 0.0 (0.0-0.2) /100WBC Sodium 138 (135-145) mmol/L Potassium 3.8 (3.3-5.1) mmol/L Chloride 106 (96-108) mmol/L Carbon Dioxide 24 (22-29) mmol/L Anion Gap 12 (12-20) BUN 7 L (9-16) mg/dL Creatinine 0.68 (0.5-1.4) mg/dL Estim Creat Clear Calc 111.0 Estimated GFR > 60 Random Glucose 79 (60-115) mg/dL Calcium 10.0 (8.4-10.2) mg/dL Total Bilirubin 0.4 (0.0-1.0) mg/dL Direct Bilirubin 0.2 (0.0-0.5) mg/dL AST 25 (5-31) U/L ALT 34 H (0-31) U/L Alkaline Phosphatase 74 D (39-117) U/L Total Protein 8.0 (6.5-8.0) g/dL Albumin 4.5 (3.5-5.0) g/dL Beta HCG, Quant 679 mIU/mL Critical Care Time Critical Care Time Critical Care Time: No Discharge Plan Discharge Clinical Impression: Ectopic Patient Disposition: Home, Self-Care Instructions: Ectopic (DC) Additional Instructions: Follow-up for lab work on day 4 and 7, as outlined by Dr. Finn. Stop taking her vitamins. Do not drink alcohol or have sexual intercourse until cleared by your provider. Prescriptions: No Action prenat.vits,cheri,[id number]-[id number] Tablet 1 tab PO BEDTIME 30 Days Qty: 30 0RF Referrals: Bruce Finn MD [Physician] - 5 days (Due for hCG levels at a 4 in 7, patient understands.) Stand Alone Forms: Work/School Release
== END 2021-07-23 21:44 | disposition home or self-care (01) ==
PROVIDERS: Nurse Practitioner Family; Emergency Provider Emergency Medicine; PCP Family Medicine
DX: O00.90 Unspecified ectopic pregnancy without intrauterine pregnancy (principal); Z3A.00 Weeks of gestation of pregnancy not specified
CPT/HCPCS: 36415; 80048; 80076; 84702; 85025; 96372; 99283; 99284

== ENCOUNTER 2021-07-26 10:59 | Outpatient (REF) | payer MEDICAID, SELFPAY ==
[2021-07-26 12:47] LABS: HCG Quantitative 793 mIU/mL
== END 2021-07-26 11:00 | disposition home or self-care (01) ==
LOC: HO.LAB 10:59
PROVIDERS: PCP Family Medicine; Visit Provider Obstetrics & Gynecology
DX: O00.90 Unspecified ectopic pregnancy without intrauterine pregnancy (principal)
CPT/HCPCS: 36415; 84702; 99212

== ENCOUNTER 2021-07-29 12:00 | Outpatient (REF) | payer MEDICAID, SELFPAY ==
[2021-07-29 12:49] LABS: HCG Quantitative 808 mIU/mL
--- NOTE | 2021-12-17 13:37 | PM.EVENT ---
Event Note Date of Service: 07/30/21 Event Note: The patient presented emergency room after hCG day 7 went up to 808.? The patient was diagnosed with ectopic was counseled regarding options of treatment and elected to proceed with methotrexate which was given 7 days prior to presenting, day 4 HCG was 792, day 7 hCG went up to 808.? Patient was having no symptoms, no abdominal pain, no vaginal bleeding, no GI or symptoms.? In the emergency room CBC, platelets, creatinine and liver function test were within normal.? Ultrasound of the pelvis showed the following: In the interim, the right adnexal finding highly suspicious for an ectopic is again visualized measuring larger now up to 3 x 2.1 x 2.1 cm. There is a moderate amount of free fluid in the cul-de-sac. Left ovary is unremarkable. No other change Discussed with the patient findings on ultrasound, an increased in the size of the right adnexal mass up to 3.1 cm with moderate amount of free fluid in the cul-de-sac.? Since the patient has no pelvic pain, and her abdominal/pelvic exam are within normal with no evidence of tenderness rebound or guarding, no cervical motion tenderness, adnexal and/or uterine tenderness, explained to the patient that this is is in unlikely clinical finding in a patient with ruptured ectopic .? Discussed with the patient?the options of treatment including methotrexate? versus laparoscopic salpingostomy/partial salpingectomy.? All pros and cons, risks and benefits of each were discussed with the patient, the patient decided to proceed with methotrexate treatment so Methotrexate 50 mg/m2 BSA x 1.71 m2 BSA = 85.5 mg methotrexate IM x 1 was given to the patient Given the finding of moderate amount of fluid in the pelvis as a new finding by ultrasound, will keep the patient for observation overnight , and npo, if any abdominal/pelvic pain or any suspicion of ruptured ectopic clinically will consider surgical treatment, otherwise will discharge the patient in the morning home with close follow-up with hcg day 4 and repeat HCG day 7 and a fu appt apt . Discussed with the patient that Methotrexate is cleared from the serum before the 4 to 12 weeks necessary for the resolution of the ectopic gestation and ovulation in the next cycle . However, there are reports of methotrexate detectable in liver cells 116 days past exposure . Limited evidence suggests that the frequency of congenital anomalies or early loss is not elevated in women who have become shortly after methotrexate exposure . However, perhaps based on the timing of methotrexate clearance from the body, some experts continue to recommend that women delay for at least 3 months after the last dose of methotrexate . Hospital day 1 Patient is doing well with no complaints, no abdominal or pelvic pain.? Minimal vaginal spotting IV hydration, and npo overnight.? The patient ambulated all day, tolerated regular diet still doing well with no complaints, no abdominal/pelvic pain.? In the afternoon the patient stayed stable, asymptomatic, no pain no abdominal tenderness, with no clinical evidence of sure intra-abdominal bleed.? H&H in a.m. after overnight IV hydration, 10.1/31.5 compared to 11.5/10.3 when the patient was n.p.o. Repeat H&H in 6 hours was stable, the patient tolerated regular diet, ambulated all day.? The patient was discharged home Discharge diagnosis:? Ectopic status post methotrexate Discharge instructions :? Patient is to call back or go to emergency room in case of development of pain.?Patient information sheet was given to the patient and instructed patient not to have intercourse or perform strenuous exercises or activities avoid sun exposure??and to follow up in the office with hCG quantitative on day 4 (Friday08/01/2021) and day 7 HCG quantity (Friday08/04/21)
== END 2021-07-29 12:01 | disposition home or self-care (01) ==
LOC: HO.LAB 12:00
PROVIDERS: Visit Provider Obstetrics & Gynecology
DX: O00.90 Unspecified ectopic pregnancy without intrauterine pregnancy (principal)
CPT/HCPCS: 36415; 84702

== ENCOUNTER 2021-07-29 13:42 | Observation (INO) | payer MEDICAID, SELFPAY ==
--- NOTE | ~2021-07-29 | US_ITS ---
EXAMINATION: US OBSTETRICAL ULTRASOUND CLINICAL INFORMATION: Question ectopic status post treatment COMPARISON: 07/23/2021. TECHNIQUE: Transabdominal endovaginal pelvic ultrasound FINDINGS: There is a single intrauterine gestational sac with visible yolk sac, embryo/fetus, and cardiac activity. There is no significant subchorionic hemorrhage or hematoma. In the interim, the right adnexal finding highly suspicious for an ectopic is again visualized measuring larger now up to 3 x 2.1 x 2.1 cm. There is a moderate amount of free fluid in the cul-de-sac. Left ovary is unremarkable. No other change. US/US OB pelvic and transvaginal IMPRESSION: Right adnexal complex cystic finding is highly suspicious for progression of ectopic with now free fluid in the cul-de-sac suggesting potentially rupture. APPLICATION ENGINEER assessment indicated.
[2021-07-29 13:55] VITALS: BP 114/58; PULSE 64; RESP 18; TEMP 36.7; O2SAT 99; BMI 27.1
[2021-07-29 14:08] LABS: MANUAL DIFF FLAG NO
[2021-07-29 14:10] LABS: Basophils Percent Auto 0.3 % (0-2); Eosinophils Absolute Auto 0.1 X10*3/uL (0.0-0.4); Hematocrit 35.4 % (37.0-47.0); Hemoglobin 11.5 g/dl (12.0-16.0); Imm Gran Abs Auto 0.02 X10*3/uL (0.00-0.03); Imm Gran Pct Auto 0.3 % (0.0-0.4); Lymphocytes Absolute Auto 1.4 X10*3/uL (1.2-4.9); Lymphocytes Percent Auto 21.1 % (20-40); Mean Corpuscular HGB Conc 32.5 g/dl (31.0-35.0); Mean Corpuscular Hemoglobin 28.1 pg (27.0-33.0); Mean Corpuscular Volume 86.6 fL (80.0-98.0); Mean Platelet Volume 9.5 fL (9.4-12.3); Monocytes Absolute Auto 0.4 X10*3/uL (0.1-1.2); Monocytes Percent Auto 6.2 % (2-11); Neutrophils Absolute Auto 4.6 x10*3/uL (2.0-8.3); Neutrophils Percent Auto 70.1 % (45-73); Platelet Count 385 X10*3/uL (160-400); Red Blood Count 4.09 X10*6/uL (4.20-5.50); White Blood Count 6.6 X10*3/uL (4.8-10.8)
[2021-07-29 14:24] LABS: Alanine Aminotransferase 25 U/L (0-31); Albumin Level 4.2 g/dL (3.5-5.0); Alkaline Phosphatase 66 U/L (39-117); Anion Gap 11 (12-20); Aspartate Amino Transferase 17 U/L (5-31); Bilirubin Total 0.2 mg/dL (0.0-1.0); Blood Urea Nitrogen 9 mg/dL (9-16); Calcium 9.5 mg/dL (8.4-10.2); Carbon Dioxide 25 mmol/L (22-29); Chloride 105 mmol/L (96-108); Creatinine Clr Calc Pharmacy 107.4; Estimated Glomerular Filt Rate > 60; Glucose Random 84 mg/dL (60-115); Magnesium 2.1 mg/dL (1.6-2.6); Potassium 4.3 mmol/L (3.3-5.1); Sodium 137 mmol/L (135-145); Total Protein 7.4 g/dL (6.5-8.0)
--- NOTE | 2021-07-29 16:59 | ED_ITS ---
HPI - General Adult General Chief complaint: General Medical Stated complaint: issue Time Seen by Provider: 07/29/21 13:51 Source: patient Mode of arrival: ambulatory Limitations: no limitations History of Present Illness HPI narrative: 26-year-old female referred to the emergency department by Dr. Finn for ectopic . Location: abdomen Radiation: non-radiation Severity: severe Relieving factors: none Exacerbating factors: none Associated symptoms: denies other symptoms Treatments prior to arrival: none Related Data Home Medications Medication Instructions Recorded Confirmed omeprazole 40 mg capsule,delayed 1 cap PO BID 07/29/21 07/29/21 release vit no.95-ferrous 1 tab PO BEDTIME 07/29/21 07/29/21 fumarate 28 mg-folic acid 800 mcg tablet () Allergies Allergy/AdvReac Type Severity Reaction Status Date / Time No Known Allergies Allergy Verified 07/23/21 13:02 Review of Systems Review of Systems: Constitutional: No Fever, No Chills ENT/Mouth: No Ear Pain, No Hoarseness, No sore throat Eyes: No Eye Pain, No Swelling, No Redness, No Foreign Body Cardiovascular: No Chest Pain, No SOB Respiratory: No Cough, No Dyspnea Gastrointestinal: No Nausea, No Vomiting, No Diarrhea, No abdominal Pain Genitourinary: Positive ectopic , No Dysuria, No Hematuria Musculoskeletal: No joint pain, No Myalgias, No Joint Swelling Skin: No Skin lacerations, No rash Neuro: No Weakness, No Numbness, No Paresthesias, No Loss of Consciousness, No Dizziness, No Headache Psych: No Anxiety/Panic, No Depression Heme/Lymph: no easy bruising, no Lymphadenopathy Endocrine: No Polyuria, No Polydipsia Yes all other systems are reviewed and are negative [facility] Past Medical History Attestation statement: The following information was validated with the patient. Source: old records reviewed Medical History No known health problems Surgical History History of intestinal surgery Social History Social History Advance Directives: No Advance Directives Information Provided: No Patient : Yes Physical Exam ED Vital Signs: Vital Signs - 24 hr 07/29/21 13:55 Temperature 98.1 F Pulse Rate 64 Respiratory Rate 18 Blood Pressure 114/58 L Pulse Oximetry 99 BMI result Body Mass Index 27.1 Appearance: Alert. Oriented X3. No acute distress. Eyes: Pupils equal, round and reactive to light. ENT: Pharynx normal. Neck: Normal inspection. Neck supple. CVS: Normal heart rate and rhythm. Pulses normal. Respiratory: No respiratory distress. Breath sounds normal. Abdomen: Soft and tender. Skin: Skin warm and dry. Normal skin color. Normal skin turgor. Extremities: No lower extremity edema. Gait well-balanced well coordinated. Neuro: No motor deficit. No sensory deficit. Cranial nerves 2-12 intact. Course Course Course Narrative: 26-year-old female presents per Dr. Finn for ruptured ectopic with bleeding in the pelvis. Patient is stable at this time, blood pressure 114/58, will resuscitate with 1 L of lactated Ringer's. Heart rate 64 regular rhythm, respiration rate 18 even unlabored. Patient does understand the severity of her symptoms at this time. Last meal was last night, last beverage was noon today. Labs drawn the patient was in the emergency department waiting room, type and screen added to the lab list. Dr. Finn is present and at bedside. Two large-bore IVs started by RNs. Patient is nervous. Will give Ativan IV. Surgical consent obtained by Dr. Finn prior to Ativan administration 17:27 patient understands severity of her situation. Consents for methotrexate in place. Consultations Consultation #1: Huma Time: 16:50 Medical Decision Making Lab Data Result diagrams: 07/29/21 14:04 07/29/21 14:04 Labs: Lab Results 07/29/21 07/29/21 Range/Units 14:04 14:04 WBC 6.6 (4.8-10.8) X10*3/uL RBC 4.09 L (4.20-5.50) X10*6/uL Hgb 11.5 L (12.0-16.0) g/dl Hct 35.4 L (37.0-47.0) % MCV 86.6 (80.0-98.0) fL MCH 28.1 (27.0-33.0) pg MCHC 32.5 (31.0-35.0) g/dl RDW 14.0 (11.0-16.0) % Plt Count 385 (160-400) X10*3/uL MPV 9.5 (9.4-12.3) fL Immature Gran % (Auto) 0.3 (0.0-0.4) % Neut % (Auto) 70.1 (45-73) % Lymph % (Auto) 21.1 (20-40) % [place] % (Auto) 6.2 (2-11) % Eos % (Auto) 2.0 (0-4) % Baso % (Auto) 0.3 (0-2) % Lymph # (Auto) 1.4 (1.2-4.9) X10*3/uL [place] # (Auto) 0.4 (0.1-1.2) X10*3/uL Eos # (Auto) 0.1 (0.0-0.4) X10*3/uL Baso # (Auto) 0.0 (0.0-0.2) X10*3/uL Abs Immat Gran (auto) 0.02 (0.00-0.03) X10*3/uL Absolute Neuts (auto) 4.6 (2.0-8.3) x10*3/uL Absolute Nucleated RBC 0.000 (0.0-0.012) X10*3/uL Nucleated RBC % (auto) 0.0 (0.0-0.2) /100WBC Sodium 137 (135-145) mmol/L Potassium 4.3 (3.3-5.1) mmol/L Chloride 105 (96-108) mmol/L Carbon Dioxide 25 (22-29) mmol/L Anion Gap 11 L (12-20) BUN 9 (9-16) mg/dL Creatinine 0.70 (0.5-1.4) mg/dL Estim Creat Clear Calc 107.4 Estimated GFR > 60 Random Glucose 84 (60-115) mg/dL Calcium 9.5 (8.4-10.2) mg/dL Magnesium 2.1 (1.6-2.6) mg/dL Total Bilirubin 0.2 (0.0-1.0) mg/dL AST 17 (5-31) U/L ALT 25 (0-31) U/L Alkaline Phosphatase 66 (39-117) U/L Total Protein 7.4 (6.5-8.0) g/dL Albumin 4.2 (3.5-5.0) g/dL Critical Care Time Critical Care Time Critical Care Time: Yes Total Critical Care Time: 40 Attestation: I have personally provided critical care time exclusive of time spent on separately billable procedures. Time includes review of laboratory data, radiology results, discussion with consultants, and monitoring for potential decompensation. Interventions were performed as documented. Discharge Plan Discharge Clinical Impression: Ectopic Patient Disposition: Admitted As Inpatient
--- NOTE | 2021-07-29 17:15 | PHA.MEDREC ---
Pharmacy Consult ? Medication Reconciliation Pharmacy has completed the medication reconciliation.
--- NOTE | 2021-07-29 17:34 | PM.GYNCN ---
HOTEL ROOM ATTENDANT - CN: HPI Data of Consult Consult date: 07/29/21 Primary Care Provider: Ruby Gonzalez MD Consult Narrative Narrative: I was consulted on Heladio Kaminski who is a 26 year old female I called called in to the emergency room after hCG day 7 went up to 808. The patient was diagnosed with ectopic was counseled regarding options of treatment and elected to proceed with methotrexate which was given 7 days ago, day 4 HCG was 792, day 7 hCG was today up to 808. Patient has no symptoms no abdominal pain no vaginal bleeding no GI or symptoms. In the emergency room CBC, platelets, creatinine and liver function test were within normal. Ultrasound of the pelvis showed the following: In the interim, the right adnexal finding highly suspicious for an ectopic is again visualized measuring larger now up to 3 x 2.1 x 2.1 cm. There is a moderate amount of free fluid in the cul-de-sac. Left ovary is unremarkable. No other change cc:: CC: SCREEN ROOM OPERATOR - Review of Systems Review of Systems ROS Unobtainable: All systems reviewed & are unremarkable except as noted in HPI and below Cardiovascular: Denies Palpatations, Loss of consciousness or Chest pain Respiratory: Denies Cough, Wheezing or Shortness of breath Musculoskeletal: Denies Low back pain Gastrointestinal: Denies Heartburn, Constipation, Diarrhea, Nausea or Vomiting Genitourinary: Denies Pain with urination, Burning with urination or Urinary frequency Neurological: Denies Migranes Psychological: Denies Depression OB PMFSH Past Medical History Medical History No known health problems Surgical History Surgical History History of intestinal surgery Social History Social History Advance Directives: No Advance Directives Information Provided: No Patient : Yes Meds Allergies Allergy/AdvReac Type Severity Reaction Status Date / Time No Known Allergies Allergy Verified 07/23/21 13:02 Active Medications: Current Medications Lactated Ringer's (Lr) 1,000 mls @ 999 mls/hr IV .Q1H1M CHERI Stop: 07/29/21 18:00 Sodium Chloride (Ns) 1,000 mls @ 100 mls/hr IVCONT .Q10H CHERI Methotrexate (Methotrexate Sodium 125 Mg/5 Ml Syringe) 85.5 mg 50 mg/m2 (85.5 mg) IM ONCE ONE Stop: 07/29/21 17:27 Home Medications Medication Instructions Recorded Confirmed Last Taken Type omeprazole 40 mg capsule,delayed 1 cap PO BID 07/29/21 07/29/21 Unknown History release vit no.95-ferrous 1 tab PO BEDTIME 07/29/21 07/29/21 Unknown History fumarate 28 mg-folic acid 800 mcg tablet () HOTEL ROOM ATTENDANT Physical Exam Vitals Vital signs: Temp Pulse Resp BP Pulse Ox 98.1 F 64 18 114/58 L 99 07/29/21 13:55 07/29/21 13:55 07/29/21 13:55 07/29/21 13:55 07/29/21 13:55 BMI result Body Mass Index 27.1 Constitutional General Appearance: Healthy appearing, Well-nourished and Well-developed Psychiatric Mood and Affect: active and alert, normal mood and normal affect Skin Appearance: No rashes and No lesions Lungs Respiratory Effort: No intercostal retractions Auscultation: Clear to auscultation Cardiovascular Auscultation: RRR Abdomen Auscultation/Inspection/Palpation: Normal bowel sounds, Soft, Non-distended and No tenderness Female Genitalia (Pelvic) Exam: Deferred Vagina: Nontender Cervix: Grossly normal and No cervical motion tenderness Adnexa/Parametria: Adnexal Tenderness: None, Adnexal Mass: None, Parametrial Tenderness: None and Parametrial Mass: None HOTEL ROOM ATTENDANT - Results Labs CBC & Chem 7: 07/30/21 06:00 07/29/21 14:04 Labs: Short CBC 07/29/21 Range/Units 14:04 WBC 6.6 (4.8-10.8) X10*3/uL Hgb 11.5 L (12.0-16.0) g/dl Hct 35.4 L (37.0-47.0) % Plt Count 385 (160-400) X10*3/uL BMP 07/29/21 14:04 Sodium 137 Potassium 4.3 Chloride 105 Carbon Dioxide 25 BUN 9 Creatinine 0.70 Calcium 9.5 Liver Function 07/29/21 Range/Units 14:04 Total Bilirubin 0.2 (0.0-1.0) mg/dL AST 17 (5-31) U/L ALT 25 (0-31) U/L Alkaline Phosphatase 66 (39-117) U/L Albumin 4.2 (3.5-5.0) g/dL Imaging US - abdomen: Radiologist's impression: ITS Impressions Pelvic/Transvag US 07/29/21 14:24 IMPRESSION: Right adnexal complex cystic finding is highly suspicious for progression of ectopic with now free fluid in the cul-de-sac suggesting potentially rupture. SCREEN ROOM OPERATOR assessment indicated. Assessment and Plan (1) Ectopic : Status: Acute Discussed with the patient findings on ultrasound, an increased in the size of the right adnexal mass up to 3.1 cm with moderate amount of free fluid in the cul-de-sac. Since the patient has no pelvic pain, and her abdominal/pelvic exam are within normal with no evidence of tenderness rebound or guarding, no cervical motion tenderness, adnexal and/or uterine tenderness, explained to the patient that this is is in unlikely clinical finding in a patient with ruptured ectopic . Discussed with the patient options of treatment including methotrexate versus laparoscopic salpingostomy/partial salpingectomy. All pros and cons, risks and benefits of each were discussed with the patient, the patient decided to proceed with methotrexate treatment. Discussed with the patient the common side effects of the medication, including skin rash, sensitivity to the sun, indigestion, nausea, sore mouth were discussed with the patient. Less common side effects (occurring in less than 2% of patients) were also discussed a drop in blood cell counts or temporary elevation in liver enzymes. All questions were answered. Methotrexate 50 mg/m2 BSA x 1.71 m2 BSA = 85.5 mg methotrexate IM x 1. Given the finding of moderate amount of fluid in the pelvis as a new finding by ultrasound, will keep the patient for observation overnight , and npo, if any abdominal/pelvic pain or any suspicion of ruptured ectopic clinically will consider surgical treatment, otherwise will discharge the patient in the morning home with close follow-up with hcg day 4 and repeat HCG day 7 and a fu appt apt . Discussed with the patient that Methotrexate is cleared from the serum before the 4 to12 weeks necessary for the resolution of the ectopic gestation and ovulation in the next cycle . However, there are reports of methotrexate detectable in liver cells 116 days past exposure . Limited evidence suggests that the frequency of congenital anomalies or early loss is not elevated in women who have become shortly after methotrexate exposure . However, perhaps based on the timing of methotrexate clearance from the body, some experts continue to recommend that women delay for at least 3 months after the last dose of methotrexate .
[2021-07-29 18:20] LABS: INTERNATIONAL NORM RATIO 1.1 (0.9-1.1); Prothrombin Time 12.7 SEC (9.9-13.0)
[2021-07-29 18:22] LABS: Partial Thromboplastin Time 36.9 SEC (24.1-38.0)
[2021-07-29 18:46] VITALS: BP 110/60; PULSE 65; RESP 18; TEMP 37.1; O2SAT 95
[2021-07-29] MEDS: LORazepam 2 MG/ML VIAL 0.5 MG IVPUSH (18:48)
[2021-07-29] MEDS: Lactated Ringers 1,000 ML 999 ML IV (20:17)
--- NOTE | 2021-07-29 21:04 | PC.NURSE ---
Report given to OF RN, plan for transport by pharmacy tech.
[2021-07-29 21:46] VITALS: BP 105/56; PULSE 56; RESP 18; TEMP 37; O2SAT 100
[2021-07-29 22:25] LABS: COVID-19 Test Negative (Negative)
[2021-07-29 23:58] VITALS: BP 99/45; PULSE 59; RESP 18; TEMP 36.7; O2SAT 98
[2021-07-30] MEDS: 0.9 % Sodium Chloride 1,000 ML 100 ML IVCONT ×3 (01:04→12:18)
[2021-07-30 04:32] VITALS: BP 103/48; PULSE 61; RESP 16; O2SAT 99
[2021-07-30 06:06] VITALS: BP 102/44; PULSE 57; RESP 16; O2SAT 100
[2021-07-30 06:13] LABS: MANUAL DIFF FLAG NO
[2021-07-30 07:19] LABS: Basophils Percent Auto 0.3 % (0-2); Eosinophils Absolute Auto 0.2 X10*3/uL (0.0-0.4); Eosinophils Percent Auto 3.2 % (0-4); Hematocrit 31.5 % (37.0-47.0); Hemoglobin 10.1 g/dl (12.0-16.0); Imm Gran Abs Auto 0.02 X10*3/uL (0.00-0.03); Imm Gran Pct Auto 0.3 % (0.0-0.4); Lymphocytes Absolute Auto 1.9 X10*3/uL (1.2-4.9); Lymphocytes Percent Auto 29.5 % (20-40); Mean Corpuscular HGB Conc 32.1 g/dl (31.0-35.0); Mean Corpuscular Hemoglobin 28.1 pg (27.0-33.0); Mean Corpuscular Volume 87.5 fL (80.0-98.0); Mean Platelet Volume 9.9 fL (9.4-12.3); Monocytes Absolute Auto 0.6 X10*3/uL (0.1-1.2); Monocytes Percent Auto 8.7 % (2-11); Neutrophils Absolute Auto 3.8 x10*3/uL (2.0-8.3); Platelet Count 338 X10*3/uL (160-400); White Blood Count 6.6 X10*3/uL (4.8-10.8)
[2021-07-30 07:32] LABS: Glucose, Whole Blood 74 mg/dL (60-115)
[2021-07-30 07:56] VITALS: BP 106/43; PULSE 56; RESP 12; TEMP 36.9; O2SAT 100
--- NOTE | 2021-07-30 08:27 | PM.GYNPNOP ---
MANAGER OF QUALITY - Subjective Subjective Date of Service: 07/30/21 Interval history: Patient is doing well with no complaints, no abdominal or pelvic pain. Minimal vaginal spotting IV hydration, and npo overnight. Ambulated all day, tolerated regular diet still doing well with no complaints, no abdominal/pelvic pain Subjective Findings: Ambulating well: Reports, Back pain: Denies, Bleeding heavy: Denies, Cramping: Denies, Dizziness: Denies, Flatus passed: Reports, Headache: Denies, Nausea: Denies and Voiding difficulty: Denies CIRCUITS ENGINEER Physical Exam Vitals Vital signs: Temp Pulse Resp BP Pulse Ox 98.4 F 56 12 106/43 L 100 07/30/21 07:56 07/30/21 07:56 07/30/21 07:56 07/30/21 07:56 07/30/21 07:56 BMI result Body Mass Index 27.1 Abdomen Auscultation/Inspection/Palpation: Soft, Non-distended and No tenderness MANAGER OF QUALITY - Prog Note: Results Labs CBC & Chem 7: 07/30/21 12:13 07/29/21 14:04 Labs: Laboratory Results - last 24 hr 07/29/21 07/29/21 07/29/21 14:04 14:04 17:06 WBC 6.6 RBC 4.09 L Hgb 11.5 L Hct 35.4 L MCV 86.6 MCH 28.1 MCHC 32.5 RDW 14.0 Plt Count 385 MPV 9.5 Immature Gran % (Auto) 0.3 Neut % (Auto) 70.1 Lymph % (Auto) 21.1 [place] % (Auto) 6.2 Eos % (Auto) 2.0 Baso % (Auto) 0.3 Lymph # (Auto) 1.4 [place] # (Auto) 0.4 Eos # (Auto) 0.1 Baso # (Auto) 0.0 Abs Immat Gran (auto) 0.02 Absolute Neuts (auto) 4.6 Absolute Nucleated RBC 0.000 Nucleated RBC % (auto) 0.0 PT INR APTT Sodium 137 Potassium 4.3 Chloride 105 Carbon Dioxide 25 Anion Gap 11 L BUN 9 Creatinine 0.70 Estim Creat Clear Calc 107.4 Estimated GFR > 60 POC Glucose Random Glucose 84 Calcium 9.5 Magnesium 2.1 Total Bilirubin 0.2 AST 17 ALT 25 Alkaline Phosphatase 66 Total Protein 7.4 Albumin 4.2 COVID-19 ([facility]) COVID-19 Clin Com Blood Type A Positive Antibody Screen NEGATIVE 07/29/21 07/29/21 07/30/21 17:59 21:33 06:00 WBC 6.6 RBC 3.60 L Hgb 10.1 L Hct 31.5 L MCV 87.5 MCH 28.1 MCHC 32.1 RDW 14.0 Plt Count 338 MPV 9.9 Immature Gran % (Auto) 0.3 Neut % (Auto) 58.0 Lymph % (Auto) 29.5 [place] % (Auto) 8.7 Eos % (Auto) 3.2 Baso % (Auto) 0.3 Lymph # (Auto) 1.9 [place] # (Auto) 0.6 Eos # (Auto) 0.2 Baso # (Auto) 0.0 Abs Immat Gran (auto) 0.02 Absolute Neuts (auto) 3.8 Absolute Nucleated RBC 0.000 Nucleated RBC % (auto) 0.0 PT 12.7 INR 1.1 APTT 36.9 Sodium Potassium Chloride Carbon Dioxide Anion Gap BUN Creatinine Estim Creat Clear Calc Estimated GFR POC Glucose Random Glucose Calcium Magnesium Total Bilirubin AST ALT Alkaline Phosphatase Total Protein Albumin COVID-19 ([facility]) Negative COVID-19 Clin Com See Note Blood Type Antibody Screen 07/30/21 07:24 WBC RBC Hgb Hct MCV MCH MCHC RDW Plt Count MPV Immature Gran % (Auto) Neut % (Auto) Lymph % (Auto) [place] % (Auto) Eos % (Auto) Baso % (Auto) Lymph # (Auto) [place] # (Auto) Eos # (Auto) Baso # (Auto) Abs Immat Gran (auto) Absolute Neuts (auto) Absolute Nucleated RBC Nucleated RBC % (auto) PT INR APTT Sodium Potassium Chloride Carbon Dioxide Anion Gap BUN Creatinine Estim Creat Clear Calc Estimated GFR POC Glucose 74 Random Glucose Calcium Magnesium Total Bilirubin AST ALT Alkaline Phosphatase Total Protein Albumin COVID-19 ([facility]) COVID-19 Clin Com Blood Type Antibody Screen MANAGER OF QUALITY - A/P (1) Ectopic : Status: Acute Assessment and Plan: The patient stays stable, asymptomatic, no pain no abdominal tenderness, with no clinical evidence of sure intra-abdominal bleed. H&H this morning after overnight IV hydration, 10.1/31.5 compared to 11.5/10.3 when the patient was and p.o. Repeat H&H in 6 hours stable, the patient tolerated regular diet, ambulated all day. Will discharge the patient home following instructions, to call back or go to emergency room in case of development of pain. Patient information sheet was given to the patient and instructed patient not to have intercourse or perform strenuous exercises or activities avoid sun exposure and to follow up in the office with hCG quantitative on day 4 (Friday08/01/2021) and day 7 HCG quantity (Friday08/04/21) . Time Spent With Patient Time: Total time spent is greater than 50% in coordination of care (as documented) at patient's floor/unit and/or counseling patient:
[2021-07-30 09:48] LABS: Appearance Urine CLEAR; Color Urine YELLOW; Glucose Urine UA NEG (NEG); Leukocyte Esterase Urine NEG (NEG); Nitrite Urine NEG (NEG); Specific Gravity - Urine 1.025 (1.005-1.025); UACC Culture Trigger NO; Urine Blood 2+ (NEG); Urine Ketones NEG (NEG); Urine Protein NEG (NEG-TRACE)
[2021-07-30 10:13] LABS: Squamous Epithelial Cell Urine 2+ /LPF
--- NOTE | 2021-07-30 10:22 | MHC.CM.PN ---
met with pt who is in ed pt reports having no servceis dc plan homem no services pt is not vax and has own transportaion home
--- NOTE | 2021-07-30 11:18 | PC.NURSE ---
Pt resting in hospital bed offering no complaints. IV fluids continued. denies pain. pt a/o and ambulatory independently in the bed. Pt ate 100% of her breakfast. Callbell and belongings within reach.
[2021-07-30 12:20] LABS: Hematocrit 33.7 % (37.0-47.0); Hemoglobin 10.7 g/dl (12.0-16.0); Mean Corpuscular HGB Conc 31.8 g/dl (31.0-35.0); Mean Corpuscular Volume 88.2 fL (80.0-98.0); Mean Platelet Volume 9.5 fL (9.4-12.3); Platelet Count 344 X10*3/uL (160-400); Red Blood Count 3.82 X10*6/uL (4.20-5.50); Red Cell Distribution Width 13.8 % (11.0-16.0); White Blood Count 6.6 X10*3/uL (4.8-10.8)
[2021-07-30 12:22] VITALS: BP 114/54; PULSE 65; RESP 20; TEMP 36.8; O2SAT 100
--- NOTE | 2021-07-30 14:04 | MHC.CM.PN ---
pt dcd home no skilled servceis ordered by
--- NOTE | 2021-07-30 14:10 | PC.NURSE ---
IV angio caths removed from right and left AC small amt of bleeding noted, 2x2 gauze and pressure applied. Patient preparing self for discharge.
--- NOTE | 2021-12-17 13:37 | PM.EVENT ---
Event Note Date of Service: 12/18/21 Event Note: The patient presented emergency room after hCG day 7 went up to 808.? The patient was diagnosed with ectopic was counseled regarding options of treatment and elected to proceed with methotrexate which was given 7 days prior to presenting, day 4 HCG was 792, day 7 hCG went up to 808.? Patient was having no symptoms, no abdominal pain, no vaginal bleeding, no GI or symptoms.? In the emergency room CBC, platelets, creatinine and liver function test were within normal.? Ultrasound of the pelvis showed the following: In the interim, the right adnexal finding highly suspicious for an ectopic is again visualized measuring larger now up to 3 x 2.1 x 2.1 cm. There is a moderate amount of free fluid in the cul-de-sac. Left ovary is unremarkable. No other change Discussed with the patient findings on ultrasound, an increased in the size of the right adnexal mass up to 3.1 cm with moderate amount of free fluid in the cul-de-sac.? Since the patient has no pelvic pain, and her abdominal/pelvic exam are within normal with no evidence of tenderness rebound or guarding, no cervical motion tenderness, adnexal and/or uterine tenderness, explained to the patient that this is is in unlikely clinical finding in a patient with ruptured ectopic .? Discussed with the patient?the options of treatment including methotrexate? versus laparoscopic salpingostomy/partial salpingectomy.? All pros and cons, risks and benefits of each were discussed with the patient, the patient decided to proceed with methotrexate treatment so Methotrexate 50 mg/m2 BSA x 1.71 m2 BSA = 85.5 mg methotrexate IM x 1 was given to the patient Given the finding of moderate amount of fluid in the pelvis as a new finding by ultrasound, will keep the patient for observation overnight , and npo, if any abdominal/pelvic pain or any suspicion of ruptured ectopic clinically will consider surgical treatment, otherwise will discharge the patient in the morning home with close follow-up with hcg day 4 and repeat HCG day 7 and a fu appt apt . Discussed with the patient that Methotrexate is cleared from the serum before the 4 to 12 weeks necessary for the resolution of the ectopic gestation and ovulation in the next cycle . However, there are reports of methotrexate detectable in liver cells 116 days past exposure . Limited evidence suggests that the frequency of congenital anomalies or early loss is not elevated in women who have become shortly after methotrexate exposure . However, perhaps based on the timing of methotrexate clearance from the body, some experts continue to recommend that women delay for at least 3 months after the last dose of methotrexate . Hospital day 1 Patient is doing well with no complaints, no abdominal or pelvic pain.? Minimal vaginal spotting IV hydration, and npo overnight.? The patient ambulated all day, tolerated regular diet still doing well with no complaints, no abdominal/pelvic pain.? In the afternoon the patient stayed stable, asymptomatic, no pain no abdominal tenderness, with no clinical evidence of sure intra-abdominal bleed.? H&H in a.m. after overnight IV hydration, 10.1/31.5 compared to 11.5/10.3 when the patient was n.p.o. Repeat H&H in 6 hours was stable, the patient tolerated regular diet, ambulated all day.? The patient was discharged home Discharge diagnosis:? Ectopic status post methotrexate Discharge instructions :? Patient is to call back or go to emergency room in case of development of pain.?Patient information sheet was given to the patient and instructed patient not to have intercourse or perform strenuous exercises or activities avoid sun exposure??and to follow up in the office with hCG quantitative on day 4 (Friday08/01/2021) and day 7 HCG quantity (Friday08/04/21)
== END 2021-07-30 14:15 | disposition home or self-care (01) ==
LOC: HO.ED 17:10 → HO.EDOVER 17:39
PROVIDERS: Nurse Practitioner Family; Physician Assistant; Physician Assistant Medical; Admitting Provider Obstetrics & Gynecology; Emergency Provider Emergency Medicine Emergency Medical Services; PCP Family Medicine; Visit Provider Obstetrics & Gynecology
DX: O00.90 Unspecified ectopic pregnancy without intrauterine pregnancy (principal); O34.80 Maternal care for other abnormalities of pelvic organs, unspecified trimester; N83.291 Other ovarian cyst, right side; Z3A.00 Weeks of gestation of pregnancy not specified; Z20.822 Contact with and (suspected) exposure to COVID-19; Z79.899 Other long term (current) drug therapy
CPT/HCPCS: 36415; 76801; 76817; 80053; 81001; 81003; 82947; 83735; 85025; 85027; 85610; 85730; 86850; 86900; 86901; 87635; 96361; 96372; 96374; 99218; 99285; 99291; J2060; J9250

== ENCOUNTER 2021-08-01 12:10 | Outpatient (REF) | payer MEDICAID, SELFPAY ==
[2021-08-01 13:35] LABS: HCG Quantitative 739 mIU/mL
[2021-08-01 14:02] LABS: Hematocrit 36.2 % (37.0-47.0); Hemoglobin 11.4 g/dl (12.0-16.0); Mean Corpuscular HGB Conc 31.5 g/dl (31.0-35.0); Mean Corpuscular Volume 88.9 fL (80.0-98.0); Mean Platelet Volume 10.1 fL (9.4-12.3); Platelet Count 407 X10*3/uL (160-400); Red Blood Count 4.07 X10*6/uL (4.20-5.50); Red Cell Distribution Width 14.2 % (11.0-16.0); White Blood Count 11.7 X10*3/uL (4.8-10.8)
== END 2021-08-01 12:11 | disposition home or self-care (01) ==
LOC: HO.LAB 12:10
PROVIDERS: PCP Family Medicine; Visit Provider Obstetrics & Gynecology
DX: O00.90 Unspecified ectopic pregnancy without intrauterine pregnancy (principal)
CPT/HCPCS: 36415; 84702; 85027; 99212

== ENCOUNTER 2021-08-04 09:03 | Outpatient (REF) | payer MEDICAID, SELFPAY ==
[2021-08-04 09:19] LABS: MANUAL DIFF FLAG NO
[2021-08-04 09:57] LABS: Basophils Percent Auto 0.3 % (0-2); Eosinophils Absolute Auto 0.2 X10*3/uL (0.0-0.4); Eosinophils Percent Auto 1.8 % (0-4); Hematocrit 33.5 % (37.0-47.0); Hemoglobin 10.7 g/dl (12.0-16.0); Imm Gran Abs Auto 0.03 X10*3/uL (0.00-0.03); Imm Gran Pct Auto 0.3 % (0.0-0.4); Lymphocytes Absolute Auto 2.6 X10*3/uL (1.2-4.9); Lymphocytes Percent Auto 30.2 % (20-40); Mean Corpuscular HGB Conc 31.9 g/dl (31.0-35.0); Mean Corpuscular Volume 87.7 fL (80.0-98.0); Mean Platelet Volume 9.8 fL (9.4-12.3); Monocytes Absolute Auto 0.6 X10*3/uL (0.1-1.2); Monocytes Percent Auto 6.3 % (2-11); Neutrophils Absolute Auto 5.3 x10*3/uL (2.0-8.3); Neutrophils Percent Auto 61.1 % (45-73); Platelet Count 420 X10*3/uL (160-400); Red Blood Count 3.82 X10*6/uL (4.20-5.50); Red Cell Distribution Width 14.4 % (11.0-16.0); White Blood Count 8.7 X10*3/uL (4.8-10.8)
[2021-08-04 10:37] LABS: HCG Quantitative 459 mIU/mL
== END 2021-08-04 09:04 | disposition home or self-care (01) ==
LOC: HO.LAB 09:03
PROVIDERS: PCP Family Medicine; Visit Provider Obstetrics & Gynecology
DX: O00.90 Unspecified ectopic pregnancy without intrauterine pregnancy (principal)
CPT/HCPCS: 36415; 84702; 85025

== ENCOUNTER → 2021-08-08 15:20 | Outpatient (BNVA) | payer MEDICAID, SELFPAY | PROVIDERS: Visit Provider Obstetrics & Gynecology | DX: Z13.89 Encounter for screening for other disorder (principal) ==

== ENCOUNTER 2021-08-15 08:59 | Outpatient (REF) | payer MEDICAID, SELFPAY ==
[2021-08-15 10:59] LABS: HCG Quantitative 92 mIU/mL
== END 2021-08-15 09:00 | disposition home or self-care (01) ==
LOC: HO.LAB 08:59
PROVIDERS: PCP Family Medicine; Visit Provider Obstetrics & Gynecology
DX: O00.90 Unspecified ectopic pregnancy without intrauterine pregnancy (principal)
CPT/HCPCS: 36415; 84702; Q3014

== ENCOUNTER 2021-09-06 12:26 | Outpatient (REF) | payer MEDICAID, SELFPAY ==
[2021-09-06 14:22] LABS: HCG Quantitative < 2 mIU/mL
== END 2021-09-06 12:27 | disposition home or self-care (01) ==
LOC: HO.LAB 12:26
PROVIDERS: PCP Family Medicine; Visit Provider Obstetrics & Gynecology
DX: O00.90 Unspecified ectopic pregnancy without intrauterine pregnancy (principal)
CPT/HCPCS: 36415; 84702

== ENCOUNTER 2021-12-01 14:58 | Emergency (ER) | payer MEDICAID, SELFPAY ==
[2021-12-01 15:02] VITALS: BP 116/71; PULSE 65; RESP 14; TEMP 36.5; O2SAT 99; BMI 26.4
--- NOTE | 2021-12-01 15:35 | ED.GENADULT ---
HPI - General Adult General Chief complaint: Wound/Laceration Stated complaint: Infection upper gum Time Seen by Provider: 12/01/21 15:06 History of Present Illness HPI narrative: Patient complains of upper lip pain and swelling along with pus draining from a wound in the inner upper lip Six days ago she fell down the stairs hitting her face, she went to [facility] ER for evaluation a CT scan showed a broken nose External sutures were placed in the lip laceration but no sutures were placed on the inside The pain and swelling had been improving and then yesterday she noticed some pain and some swelling beginning in her upper lip and then today she noticed pain and swelling or worse but she also noticed that there was a significant discharge of pus coming out of the wound inside her mouth No fever no chills no difficulty swallowing or breathing no swelling under the tongue Related Data Home Medications Medication Instructions Recorded Confirmed omeprazole 40 mg capsule,delayed 1 cap PO BID 07/29/21 07/29/21 release Previous Rx's Medication Instructions Recorded amoxicillin 875 mg-potassium 1 tab PO BID 7 days #14 tabs 12/01/21 clavulanate 125 mg tablet doxycycline hyclate 100 mg capsule 100 mg PO BID 7 days #14 caps 12/01/21 ibuprofen 600 mg tablet 600 mg PO Q6H PRN pain #20 tabs 12/01/21 Allergies Allergy/AdvReac Type Severity Reaction Status Date / Time No Known Allergies Allergy Verified 07/23/21 13:02 Review of Systems Review of Systems: Positive for left upper lip swelling pain and pus Negatives no fever no chills no dizziness no weakness no fainting no feeling faint no headache no neck pain no sore throat no difficulty breathing or swallowing no difficulty speaking no chest pain no shortness of breath no skin rash no numbness or weakness Yes all other systems are reviewed and are negative [facility] Past Medical History Source: nursing notes reviewed Medical History No known health problems Surgical History History of intestinal surgery Social History Social History Advance Directives: Yes Advance Directives on File: Yes Advance Directives Date on File: 07/31/21 service: No Physical Exam ED Vital Signs: Vital Signs - 24 hr 12/01/21 15:02 Temperature 97.7 F Pulse Rate 65 Respiratory Rate 14 Blood Pressure 116/71 Pulse Oximetry 99 Oxygen Delivery Method Room Air BMI result Body Mass Index 26.4 General appearance is no acute distress The facial exam the upper lip has soft tissue non fluctuant swelling The bridge of the nose is mildly swollen but there is no swelling tenderness or discharge in the nares, all swelling is limited to the upper lip The mouth exam there is a red area in the vicinity of the frenulum with an open wound that is discharging pus, she can express the pus by gently massaging her upper lip, no swelling under the tongue no impairment of breathing or swallowing, voice is normal Pharynx is clear, mucous membranes moist Neck is supple Respiratory no distress Chest clear to auscultation bilateral Extremities full range of motion x4 Skin no rash Course Course Course Narrative: Case was discussed with Dr. Boswell who agrees trial of oral antibiotic is except a bowl as pus is draining copiously from the wound Patient has no fever and is otherwise well appearing and she is discharged with recommendations to gently massage the area, rinse frequently with warm water and oral antibiotics Discharge Plan Discharge Clinical Impression: Cellulitis and abscess of oral soft tissues Patient Disposition: Home, Self-Care Additional Instructions: You have an infection of the cut you got inside her mouth Because it is draining a lot of pus we will not make any incision You want to keep the pus draining so gently massaged the upper lip as you have been doing, rinse with warm water, or salt water Take antibiotics as directed Return to the ER immediately for fever, worse pain and swelling, redness and swelling spreading to other parts of her face or nose, any sign of worsening infection any worse condition or any concern Return to the ER in 48 hours for recheck Prescriptions: New amoxicillin-pot clavulanate 875-125 mg tablet 1 tab PO BID 7 Days Qty: 14 0RF doxycycline hyclate 100 mg capsule 100 mg PO BID 7 Days Qty: 14 0RF ibuprofen 600 mg tablet 600 mg PO Q6H PRN (Reason: pain) Qty: 20 0RF No Action omeprazole 40 mg capsule,delayed release(DR/EC) 1 cap PO BID
[2021-12-01] MEDS: Ibuprofen 600 MG TABLET PO (15:37)
[2021-12-01] MEDS: Amoxicillin/Potassium Clav 875 MG TABLET PO (15:38)
== END 2021-12-01 15:58 | disposition home or self-care (01) ==
PROVIDERS: Emergency Provider Emergency Medicine; PCP Family Medicine
DX: K12.2 Cellulitis and abscess of mouth (principal)
CPT/HCPCS: 87071; 87205; 99283; 99284

== ENCOUNTER 2022-05-10 13:10 | Outpatient (REF) | payer MEDICAID, SELFPAY ==
[2022-05-10 14:55] LABS: HCG Quantitative 10 mIU/mL
== END 2022-05-10 13:11 | disposition home or self-care (01) ==
LOC: HO.LAB 13:10
PROVIDERS: PCP Family Medicine; Visit Provider Obstetrics & Gynecology
DX: Z34.90 Encounter for supervision of normal pregnancy, unspecified, unspecified trimester (principal)
CPT/HCPCS: 36415; 84702

== ENCOUNTER 2022-05-12 10:33 | Outpatient (REF) | payer MEDICAID, SELFPAY ==
[2022-05-12 11:18] LABS: HCG Quantitative 3 mIU/mL
== END 2022-05-12 10:34 | disposition home or self-care (01) ==
LOC: HO.LAB 10:33
PROVIDERS: Visit Provider Obstetrics & Gynecology
DX: Z34.90 Encounter for supervision of normal pregnancy, unspecified, unspecified trimester (principal)
CPT/HCPCS: 36415; 84702

== ENCOUNTER 2022-05-14 11:14 | Outpatient (REF) | payer MEDICAID, SELFPAY ==
[2022-05-14 12:54] LABS: HCG Quantitative < 2 mIU/mL
== END 2022-05-14 11:15 | disposition home or self-care (01) ==
LOC: HO.LAB 11:14
PROVIDERS: PCP Family Medicine; Visit Provider Obstetrics & Gynecology
DX: O03.9 Complete or unspecified spontaneous abortion without complication (principal)
CPT/HCPCS: 36415; 84702; 99212

== ENCOUNTER 2022-12-02 10:51 | Outpatient (REF) | payer MEDICAID, SELFPAY ==
--- NOTE | ~2022-12-02 | US_ITS ---
EXAMINATION: US OBSTETRICAL ULTRASOUND CLINICAL INFORMATION: Supervision of normal . Beta-hCG of 37. COMPARISON: Pelvic ultrasound dated 07/29/2021. LMP: 10/25/2022. Estimated date of delivery by maternal dates is 08/31/2023. TECHNIQUE: Multiple 2-D grayscale transabdominal/transvaginal pelvic ultrasound images were obtained with Doppler. FINDINGS: Uterus: Anteverted/anteflexed. The endometrial stripe measures up to 1.6 cm at the level the fundus without focal abnormality. The cervix is closed. Trace free fluid in the cul-de-sac. Right ovary: 3.1 x 1.9 x 2.2 cm. Color Doppler showed no abnormal vascular flow. Right ovary: 2.9 x 1.7 x 2.3 cm. Color Doppler showed no abnormal vascular flow. Urinary bladder: Mildly distended without focal abnormality. US/US OB pelvic and transvaginal IMPRESSION: No intrauterine or extrauterine gestation identified. Continued monitoring of beta-hCG level is recommended. If there is a rising beta-hCG level, short-term imaging follow-up is recommended as clinically indicated to reassess for positive gestation 12/02/2022.
[2022-12-02 11:32] LABS: HCG Quantitative 37 mIU/mL
== END 2022-12-02 10:52 | disposition home or self-care (01) ==
LOC: HO.US 10:51
PROVIDERS: PCP Family Medicine; Visit Provider Obstetrics & Gynecology
DX: Z34.90 Encounter for supervision of normal pregnancy, unspecified, unspecified trimester (principal)
CPT/HCPCS: 36415; 76801; 76817; 84702; 99212

== ENCOUNTER 2022-12-02 14:07 | Outpatient (AMB) | payer MEDICAID, SELFPAY ==
--- NOTE | 2022-12-02 14:11 | MHC.OFFVIS ---
Intake Vital Signs 12/02/22 14:16 Height 5 ft 4 in Weight 152 lb 1.903 oz BMI 26.1 BP 112/64 Intake Visit Reasons: HCG and u/s follow up Twisting Press Operator Required: No Information Interpreted: non-clinical & clinical Accompanied by: Self / Same As Patient Allergies No Known Allergies Allergy (Verified 12/02/22 14:16) HPI HPI Comments History of Present Illness Details Presenting for follow-up after a positive urine test. HCG done today was 37. The patient has no complaint no pelvic pain and /or vaginal bleeding. Pelvic ultrasound showed the following: Uterus: Anteverted/anteflexed. The endometrial stripe measures up to 1.6 cm at the level the fundus without focal abnormality. The cervix is closed. Trace free fluid in the cul-de-sac. Right ovary: 3.1 x 1.9 x 2.2 cm.? Color Doppler showed no abnormal vascular flow. Right ovary: 2.9 x 1.7 x 2.3 cm.? Color Doppler showed no abnormal vascular flow. Urinary bladder: Mildly distended without focal abnormality. [facility] Medical History Ectopic No known health problems Surgical History History of intestinal surgery Social History Advance Directives Date on File: 07/31/21 service: No Female Reproductive History Menstrual Age of Menarche: 9 Date of last menstrual period: 10/25/22 Review of Systems Const All systems reviewed & are unremarkable except as noted in HPI and below Reports as per HPI and Reports no additional complaints GI Reports no additional complaints Reports no additional complaints Physical Exam Vital Signs: Last Vital Signs BP 112/64 12/02/22 14:16 BMI result Body Mass Index 26.1 Assessment & Plan Assessment & Plan (1) Early stage of : Comment: History of ectopic Code(s): Z34.90 - Encounter for supervision of normal , unspecified, unspecified trimester Plan: Differential diagnosis discussed the patient included but not limited to early IUP, SAB or ectopic . HCG Q 48 hours till above 3500 repeat ultrasound to confirm IUP and rule out ectopic unless hCG rate of rise is abnormal or the patient develops abdominal/pelvic pressure/pain and/or bleeding. vitamin 1 tablet p.o. q.d. warning signs for ectopic and SAB were given to the patient, instructions given the patient to call or go to the emergency room in case of pelvic pain/cramping and or vaginal bleeding and to schedule a follow-up appointment in 4 days. All questions answered, the patient verbalized understanding and agreed with the plan. Orders: Orders HCG Quantitative 12/04/22 Z34.90 - Encounter for supervision of normal , unspecified, unspecified trimester HCG Quantitative 12/06/22 Z34.90 - Encounter for supervision of normal , unspecified, unspecified trimester Coding Level of Care Code Est Pt Level 3 (36282) Diagnoses Early stage of Z34.90
[2022-12-02 14:16] VITALS: BP 112/64; BMI 26.1
== END 2022-12-02 14:33 | disposition home or self-care (01) ==
LOC: HO.HWS 14:07
PROVIDERS: PCP Family Medicine; Visit Provider Obstetrics & Gynecology
DX: Z34.90 Encounter for supervision of normal pregnancy, unspecified, unspecified trimester (principal)
CPT/HCPCS: 99213

== ENCOUNTER 2022-12-03 10:42 | Outpatient (REF) | payer MEDICAID, SELFPAY ==
--- NOTE | ~2022-12-03 | US_ITS ---
EXAMINATION: US OBSTETRICAL ULTRASOUND CLINICAL INFORMATION: Hemorrhage in early . COMPARISON: 12/02/2022 pelvic ultrasound. LMP: 10/25/2022. Beta-hC TECHNIQUE: Multiple 2-D grayscale and Doppler ultrasound images of the pelvis were obtained. FINDINGS: Uterus: Anteverted/anteflexed. Thickening of the endometrium up to 1.7 cm without focal abnormality. Color Doppler showed no abnormal vascular flow. The cervix is closed. No free fluid in the cul-de-sac. Right ovary: 3.4 x 2.3 x 2.4 cm. No adnexal abnormality. Color Doppler showed no abnormal vascular flow. Left ovary: 2.2 x 2.2 x 1.8 cm. No adnexal abnormality. Color Doppler showed no abnormal vascular flow. US/US OB pelvic and transvaginal IMPRESSION: 1. No intrauterine or extrauterine gestation. Continued monitoring of beta-hCG levels is recommended. Continued monitoring of beta-hCG levels and short-term obstetric follow-up is recommended.
[2022-12-03 11:04] LABS: Hematocrit 35.5 % (37.0-47.0); Hemoglobin 11.5 g/dl (12.0-16.0); Mean Corpuscular HGB Conc 32.4 g/dl (31.0-35.0); Mean Corpuscular Hemoglobin 27.8 pg (27.0-33.0); Mean Corpuscular Volume 85.7 fL (80.0-98.0); Platelet Count 343 X10*3/uL (160-400); Red Blood Count 4.14 X10*6/uL (4.20-5.50); Red Cell Distribution Width 13.4 % (11.0-16.0)
[2022-12-03 11:33] LABS: HCG Quantitative 81 mIU/mL
== END 2022-12-03 10:43 | disposition home or self-care (01) ==
LOC: HO.US 10:42
PROVIDERS: PCP Family Medicine; Visit Provider Obstetrics & Gynecology
DX: O20.9 Hemorrhage in early pregnancy, unspecified (principal)
CPT/HCPCS: 0353U; 36415; 76801; 76817; 84702; 85027; 86850; 86900; 99212

== ENCOUNTER 2022-12-03 11:52 | Outpatient (AMB) | payer MEDICAID, SELFPAY ==
[2022-12-03 12:14] VITALS: BP 112/62; BMI 26.9
--- NOTE | 2022-12-03 12:14 | A.OFFVIS_ITS ---
Intake Vital Signs 12/03/22 12:14 Height 5 ft 4 in Weight 157 lb BMI 26.9 BP 112/62 Intake Visit Reasons: vaginal bleeding Platform Power Technician Required: No Information Interpreted: non-clinical & clinical Weapons Electrical Engineering Officer: Weapons Electrical Engineering Officer Present (Aidyn) Allergies No Known Allergies Allergy (Verified 12/03/22 12:15) Is last menstrual period known: Yes Last menstrual period: 10/25/22 Post menopausal: No HPI HPI Comments History of Present Illness Details Presenting complaining of pelvic cramping and mild vaginal associated with shoulder pain. H&H is 11.5/35.5, hCG on 12/02 was 37 went up to 81 today. Pelvic ultrasound showed no IUP with no evidence of adnexal mass or free fluid in the cul-de-sac. Blood type A positive [facility] Medical History Ectopic No known health problems Surgical History History of intestinal surgery Social History Advance Directives Date on File: 07/31/21 service: No Female Reproductive History Menstrual Age of Menarche: 9 Date of last menstrual period: 10/25/22 Date of last pap smear: 08/13/18 (ASCUS) History of abnormal pap smear: Yes Review of Systems Const All systems reviewed & are unremarkable except as noted in HPI and below Physical Exam Vital Signs: Last Vital Signs BP 112/62 12/03/22 12:14 BMI result Body Mass Index 26.9 GI Palpation (GI): Soft to palpation, nontender and no guarding General: Yes no CVA tenderness External Female Exam: normal external appearance and normal appearance of the urethra Speculum Exam - Vagina: normal appearance of the vagina, normal palpation, no lesions, no masses and other (Blood per vagina, no active bleeding) Speculum Exam - Cervix: normal appearance of the cervix, normal palpation, no lesions, no masses and nontender Bimanual exam- vagina & uterus: normal bimanual exam, normal palpation, uterine size normal, normal palpation, uterine shape normal, No Cervical tenderness present and non-tender Bimanual Exam- Adnexa, other: normal adnexae Back/Spine/Pelvis Back: no CVA tenderness Assessment & Plan Assessment & Plan (1) First trimester bleeding: Code(s): O20.9 - Hemorrhage in early , unspecified Plan: GC and chlamydia taken. Discussed with the patient the results of hCG has gone up 81 in 24 hours, ultrasound finding showing no adnexal masses no IUP and no free fluid in the cul-de-sac. Differential diagnosis discussed with the patient include SAB , ectopic or early IUP. SAB/ectopic warnings given the patient, she is to call or go to emergency room in case of heavy vaginal bleeding, pelvic pain otherwise follow-up with repeat hCG tomorrow in 48 hours. Coding Level of Care Code Est Pt Level 3 (52039) Diagnoses First trimester bleeding O20.9
== END 2022-12-03 13:10 | disposition home or self-care (01) ==
LOC: HO.HWS 11:52
PROVIDERS: PCP Family Medicine; Visit Provider Obstetrics & Gynecology
DX: O20.9 Hemorrhage in early pregnancy, unspecified (principal)
CPT/HCPCS: 99213

== ENCOUNTER 2022-12-03 13:09 | Outpatient (REF) | payer MEDICAID, SELFPAY ==
[2022-12-03 18:11] LABS: CT PCR NOT DETECTED (Not Detect.); NG PCR NOT DETECTED (Not Detect.)
== END 2022-12-03 13:10 | disposition home or self-care (01) ==
LOC: HO.LNP 13:09
PROVIDERS: Visit Provider Obstetrics & Gynecology
DX: O20.9 Hemorrhage in early pregnancy, unspecified (principal)
CPT/HCPCS: 0353U

== ENCOUNTER 2022-12-04 10:57 | Outpatient (REF) | payer MEDICAID, SELFPAY ==
[2022-12-04 11:54] LABS: HCG Quantitative 152 mIU/mL
== END 2022-12-04 10:58 | disposition home or self-care (01) ==
LOC: HO.LAB 10:57
PROVIDERS: Obstetrics & Gynecology; PCP Family Medicine; Visit Provider Family Medicine
DX: O20.9 Hemorrhage in early pregnancy, unspecified (principal)
CPT/HCPCS: 36415; 84702

== ENCOUNTER 2022-12-06 10:42 | Outpatient (REF) | payer MEDICAID, SELFPAY ==
[2022-12-06 12:57] LABS: HCG Quantitative 306 mIU/mL
== END 2022-12-06 10:43 | disposition home or self-care (01) ==
LOC: HO.LAB 10:42
PROVIDERS: PCP Family Medicine; Visit Provider Obstetrics & Gynecology
DX: O20.9 Hemorrhage in early pregnancy, unspecified (principal)
CPT/HCPCS: 36415; 84702

== ENCOUNTER 2022-12-06 13:27 | Outpatient (AMB) | payer MEDICAID, SELFPAY ==
--- NOTE | 2022-12-06 13:19 | A.OFFVIS_ITS ---
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 Her vaginal bleeding has slowed down markedly. HCG has gone up from 152 on 12/04 to 306 today. No pelvic cramping or pain. Blood type positive [facility] Medical History Ectopic No known health problems Surgical History History of intestinal surgery Social History Advance Directives Date on File: 07/31/21 service: No Female Reproductive History Menstrual Age of Menarche: 9 Review of Systems Const All systems reviewed & are unremarkable except as noted in HPI and below Reports as per HPI and Reports no additional complaints GI Reports no additional complaints Reports no additional complaints Assessment & Plan Assessment & Plan (1) First trimester bleeding: Code(s): O20.9 - Hemorrhage in early , unspecified Plan: Discussed with the patient the rate of rise of hCG. SAB/ectopic warnings given to patient, she is to call or go to emergency room in case of vaginal bleeding and or pain or cramping. HCG q.48h and repeat ultrasound in a week with a follow-up appointment afterwards. vitamin 1 tablet p.o. q.d.. All questions answered, the patient verbalized understanding. I spent a total of 20 minutes reviewing the chart, talking to the patient via video and documenting in the medical record. Orders: Orders HCG Quantitative Today O20.9 - Hemorrhage in early , unspecified HCG Quantitative 12/08/22 O20.9 - Hemorrhage in early , unspecified HCG Quantitative 12/12/22 O20.9 - Hemorrhage in early , unspecified Telehealth Telehealth Location of provider rendering services: practice address Location of patient: address on file Patient Identification confirmed using: Name, : Yes Telehealth method: voice only Patient verbally consented to treatment: Yes Patient verbally consented to billing insurance company: Yes Patient informed of any privacy concerns related to visit: Yes Coding Level of Care Code Tele Est Pt Level 3 (71007) Diagnoses First trimester bleeding O20.9
== END 2022-12-06 15:03 | disposition home or self-care (01) ==
LOC: HO.HWS 13:27
PROVIDERS: PCP Family Medicine; Visit Provider Obstetrics & Gynecology
DX: O20.9 Hemorrhage in early pregnancy, unspecified (principal)
CPT/HCPCS: 99213

== ENCOUNTER 2022-12-08 11:12 | Outpatient (REF) | payer MEDICAID, SELFPAY ==
[2022-12-08 12:00] LABS: HCG Quantitative 404 mIU/mL
== END 2022-12-08 11:13 | disposition home or self-care (01) ==
LOC: HO.LAB 11:12
PROVIDERS: Visit Provider Obstetrics & Gynecology
DX: O20.9 Hemorrhage in early pregnancy, unspecified (principal)
CPT/HCPCS: 36415; 84702

== ENCOUNTER 2022-12-09 09:07 | Outpatient (REF) | payer MEDICAID, SELFPAY ==
--- NOTE | ~2022-12-09 | US_ITS ---
EXAMINATION: US OBSTETRICAL ULTRASOUND CLINICAL INFORMATION: Hemorrhage in early COMPARISON: Examination of 6 days previous. TECHNIQUE: Real-time examination. Transabdominal and transvaginal evaluation. FINDINGS: No intrauterine sac, yolk sac, embryonic pole identified. Endometrial stripe thickness 5 mm. MATERNAL ADNEXA: The right maternal ovary measures 2.5 x 2.3 x 2.4 cm. There is a complex right ovarian cyst with internal echoes at 1.3 x 1.2 x 1.4 cm. There is a possible right adnexal mass adjacent to both the right ovary and peristalsing bowel measuring 10 x 11 x 10 mm with minimal flow. The left maternal ovary measures 2.6 x 1.9 x 2.5 cm. No focal abnormality. No maternal pelvic ascites. US/US OB pelvic and transvaginal IMPRESSION: Possible right adnexal mass adjacent to both the right ovary and peristalsing bowel with minimal flow. This is not seen on the previous evaluation. Given no intrauterine sac identified, ectopic gestation not excluded. Continued serial ultrasound and beta hCG determinations recommended if intervention is not undertaken. No free adnexal fluid. Complex right adnexal cyst as noted above.
[2022-12-09 10:47] LABS: Hemoglobin 12.4 g/dl (12.0-16.0); Mean Corpuscular HGB Conc 32.6 g/dl (31.0-35.0); Mean Corpuscular Hemoglobin 27.6 pg (27.0-33.0); Mean Corpuscular Volume 84.6 fL (80.0-98.0); Mean Platelet Volume 9.4 fL (9.4-12.3); Platelet Count 388 X10*3/uL (160-400); Red Blood Count 4.49 X10*6/uL (4.20-5.50); Red Cell Distribution Width 13.6 % (11.0-16.0); White Blood Count 5.9 X10*3/uL (4.8-10.8)
[2022-12-09 11:54] LABS: Alanine Aminotransferase 37 U/L (0-31); Aspartate Amino Transferase 28 U/L (5-31); Estimated Glomerular Filt Rate > 60; HCG Quantitative 463 mIU/mL
== END 2022-12-09 09:08 | disposition home or self-care (01) ==
LOC: HO.US 09:07
PROVIDERS: Visit Provider Obstetrics & Gynecology
DX: O20.9 Hemorrhage in early pregnancy, unspecified (principal)
CPT/HCPCS: 36415; 76801; 76817; 82565; 84450; 84460; 84702; 85027; 99212

== ENCOUNTER 2022-12-09 10:35 | Outpatient (AMB) | payer MEDICAID, SELFPAY ==
[2022-12-09 10:39] VITALS: BMI 26.9
--- NOTE | 2022-12-09 10:39 | MHC.OFFVIS ---
Intake Vital Signs 12/09/22 10:39 Height 5 ft 4 in Weight 156 lb 8.451 oz BMI 26.9 Intake Visit Reasons: Ultrasound follow up Incident Response Consultant Required: No Information Interpreted: non-clinical & clinical Accompanied by: Self / Same As Patient Allergies No Known Allergies Allergy (Verified 12/09/22 10:39) HPI HPI Comments History of Present Illness Details Presenting for follow-up HCG. HCG increased from 306 to 404 in 48 hours less than 49% minimum rate of rise expected in a normal . The patient has no abdominal/pelvic pain, minimal vaginal bleeding. Blood type A positive. Pelvic ultrasound done today showed the following: Possible right adnexal mass adjacent to both the right ovary and peristalsing bowel with minimal flow. This is not seen on the previous evaluation. Given no intrauterine sac identified, ectopic gestation not excluded. Continued serial ultrasound and beta hCG determinations recommended if intervention is not undertaken. ? No free adnexal fluid. ? Complex right adnexal cyst as noted above. [facility] Medical History Ectopic No known health problems Surgical History History of intestinal surgery Social History Advance Directives Date on File: 07/31/21 service: No Female Reproductive History Menstrual Age of Menarche: 9 Physical Exam Vital Signs: BMI result Body Mass Index 26.9 GI Palpation (GI): Soft to palpation and nontender Percussion: Yes normal to percussion Auscultation: normal bowel sounds Assessment & Plan Assessment & Plan (1) Early stage of : Comment: History of ectopic Code(s): Z34.90 - Encounter for supervision of normal , unspecified, unspecified trimester Plan: Discussed with the patient the rate of rise of HCG level is below the 49%, which is expected in the majority of normal intrauterine gestation and the results of the ultrasound showing adnexal mass, new in onset with minimal to no blood flow with no IUP. The differential diagnosis discussed with the patient included either early ectopic versus early SAB with a small possibility of normal intrauterine gestation. Options of treatment were discussed with the patient includin- Expected management for the coming 48 hours and repeat HCG with or without pelvic Ultrasound. 2- Treat as if she has tubal with methotrexate or 3- Uterine aspiration. All the pros and cons and risks and benefits of each treatment approach were discussed with the patient. 1-The advantage of expectant management were discussed with the patient, being prevention of possible exposure to teratogenicity or risk of spontaneous in case of an early normal , the risk being delayed diagnosis and treatment of ectopic and possible rupture with all its possible consequences including intra-abdominal bleed and possible . 2- Explained to the patient that the use of curettage as a diagnostic tool is limited by the potential for disruption of a viable . In addition, discussed with the patient that the sensitivity of curettage in finding chorionic villi is only 70 percent. Pipelle endometrial biopsy is even less sensitive than curettage for detection of villi; sensitivities reported is between 30 and 60 percent. If curettage is performed, serum HCG levels can be followed postcurettage if histopathology does not confirm the clinical impression. When an IUP has been evacuated, hCG levels should drop by at least 15 percent the day after evacuation. There might be an advantage of performing aspiration only on patients with both an HCG concentration below the discriminatory zone and a low doubling rate, since 30 percent of these patients have a nonviable intrauterine gestation, and the remainder have an ectopic . Knowing the results of aspiration avoids unnecessary methotrexate treatment of the 30 percent of patients without ectopic . 3-Furthermore discussed with the patient the 3rd option which is treatment with methotrexate without uterine aspiration. The advantage of early treatment of presumed tubal with methotrexate was discussed with the patient, including but not limited to reducing the risk of ruptured ectopic with all its potential consequences, in addition discussed with the patient methotrexate treatment risks including but not limited to, possible exposure to methotrexate to a normal intra and and increase the risk of spontaneous and congenital anomalies. The patient decided to wait 48 hours repeat HCG and treat accordingly. Instructions given to the patient to the importance of compliance and timely HCG follow-up in 48 hours for an early and accurate diagnosis, and to call or go to the emergency room if pain or vaginal bleeding occurs, all questions answered, the patient verbalized understanding and agreed with the plan. Follow-up in 48 hours for further management. Orders: Orders Alanine Aminotransferase Today Z34.90 - Encounter for supervision of normal , unspecified, unspecified trimester Aspartate Amino Transferase Today Z34.90 - Encounter for supervision of normal , unspecified, unspecified trimester Creatinine Today Z34.90 - Encounter for supervision of normal , unspecified, unspecified trimester Complete Blood Count no Diff Today Z34.90 - Encounter for supervision of normal , unspecified, unspecified trimester HCG Quantitative 12/11/22 Z34.90 - Encounter for supervision of normal , unspecified, unspecified trimester US pelvic and transvaginal Today Z34.90 - Encounter for supervision of normal , unspecified, unspecified trimester Coding Level of Care Code Est Pt Level 3 (29868) Diagnoses Early stage of Z34.90
== END 2022-12-09 11:41 | disposition home or self-care (01) ==
LOC: HO.HWS 10:35
PROVIDERS: PCP Family Medicine; Visit Provider Obstetrics & Gynecology
DX: Z34.90 Encounter for supervision of normal pregnancy, unspecified, unspecified trimester (principal)
CPT/HCPCS: 99213

== ENCOUNTER 2022-12-11 09:51 | Outpatient (REF) | payer MEDICAID, SELFPAY ==
--- NOTE | ~2022-12-11 | US_ITS ---
EXAMINATION: US OBSTETRICAL ULTRASOUND CLINICAL INFORMATION: Hemorrhage in early . COMPARISON: Pelvic ultrasound studies dated 12/09/2022 and 12/03/2022. LMP: 10/25/2022. Gestational age by maternal dates is 6 weeks, 5 days. Estimated date of delivery by maternal dates is 08/01/2023. TECHNIQUE: Multiple 2-D grayscale and Doppler transabdominal/transvaginal ultrasound images of the pelvis were obtained. FINDINGS: Uterus: Anteverted/anteflexed measuring 5.4 x 3.7 x 4.7 cm. The endometrial stripe measures up to 0.6 cm at the level the fundus without focal abnormality. No intrauterine gestation is seen. The cervix is closed without abnormality. No free fluid in the cul-de-sac. Right ovary: 3.1 x 2.4 x 1.4 cm with a volume of 7.1 mL. A small homogeneous echogenic focus is seen along the posterior margin of the ovary measuring 1.0 x 0.9 x 0.6 cm. Color Doppler showed no abnormal vascular flow. Left ovary: 2.5 x 1.9 x 2.2 cm with a volume of 5.4 mL. Small US/US OB pelvic and transvaginal IMPRESSION: 1. No definitive intrauterine or extrauterine gestation. A small echogenic focus adjacent to the right ovary is nonspecific. This does not have the appearance of an ectopic gestation. Continued short-term monitoring of beta-hCG level and pelvic ultrasound is recommended as clinically indicated.
[2022-12-11 11:19] LABS: HCG Quantitative 622 mIU/mL
== END 2022-12-11 09:52 | disposition home or self-care (01) ==
LOC: HO.US 09:51
PROVIDERS: PCP Family Medicine; Visit Provider Obstetrics & Gynecology
DX: O20.9 Hemorrhage in early pregnancy, unspecified (principal)
CPT/HCPCS: 36415; 76801; 76817; 84702; 99212

== ENCOUNTER 2022-12-11 14:00 | Outpatient (AMB) | payer MEDICAID, SELFPAY ==
[2022-12-11 14:10] VITALS: BP 110/64; BMI 26.8
--- NOTE | 2022-12-11 14:10 | A.OFFVIS_ITS ---
Intake Vital Signs 12/11/22 14:10 Height 5 ft 4 in Weight 156 lb BMI 26.8 BP 110/64 Intake Visit Reasons: Ultrasound follow up Parts Facilitator Required: No Allergies No Known Allergies Allergy (Verified 12/11/22 14:11) Post menopausal: No HPI HPI Comments History of Present Illness Details Presenting for follow-up HCG and ultrasound with no complaints, no pelvic pain. HCG went up less than 49% minimum rate of rise. Ultrasound done today showed a following: Uterus: Anteverted/anteflexed measuring 5.4 x 3.7 x 4.7 cm. The endometrial stripe measures up to 0.6 cm at the level the fundus without focal abnormality. No intrauterine gestation is seen. The cervix is closed without abnormality. No free fluid in the cul-de-sac. Right ovary: 3.1 x 2.4 x 1.4 cm with a volume of 7.1 mL. A small homogeneous echogenic focus is seen along the posterior margin of the ovary measuring 1.0 x 0.9 x 0.6 cm. Color Doppler showed no abnormal vascular flow. Left ovary: 2.5 x 1.9 x 2.2 cm with a volume of 5.4 mL. Small US/US OB pelvic and transvaginal IMPRESSION: 1. No definitive intrauterine or extrauterine gestation. A small echogenic focus adjacent to the right ovary is nonspecific. This does not have the appearance of an ectopic gestation. Continued short-term monitoring of beta-hCG level and pelvic ultrasound is recommended as clinically indicated. [facility] Medical History Ectopic No known health problems Surgical History History of intestinal surgery Social History Advance Directives Date on File: 07/31/21 service: No Female Reproductive History Menstrual Age of Menarche: 9 Physical Exam Vital Signs: Last Vital Signs BP 110/64 12/11/22 14:10 BMI result Body Mass Index 26.8 GI Palpation (GI): Soft to palpation and nontender Assessment & Plan Assessment & Plan (1) First trimester bleeding: Code(s): O20.9 - Hemorrhage in early , unspecified Plan: Discussed with the patient the abnormal rate of rise of hCG less than 49% and the finding on ultrasound showing nonspecific right adnexal echogenic focus. Differential diagnosis includes early IUP, SAB or ectopic . Signs and symptoms of ectopic and/or SAB were discussed with the patient she is to call or come back to the emergency room in case of pelvic pain and or heavy vaginal bleeding. The patient has an appointment at [facility] tomorrow , all the medical records were given to the patient, she understands the importance of close follow-up. Instructions given the patient in case she was not able to have access to care, repeat hCG and ultrasound needs to be done within 48 hours. All questions answered, the patient verbalized understanding. Coding Level of Care Code Est Pt Level 3 (71951) Diagnoses First trimester bleeding O20.9
== END 2022-12-11 15:47 | disposition home or self-care (01) ==
LOC: HO.HWS 14:00
PROVIDERS: PCP Family Medicine; Visit Provider Obstetrics & Gynecology
DX: O20.9 Hemorrhage in early pregnancy, unspecified (principal)
CPT/HCPCS: 99213

== ENCOUNTER 2023-02-14 17:37 | Outpatient (REF) | payer MEDICAID, SELFPAY | END 2023-02-14 17:38 | disposition home or self-care (01) | LOC: HO.HHCLNP 17:37 | PROVIDERS: Visit Provider Internal Medicine | DX: J02.9 Acute pharyngitis, unspecified (principal) | CPT/HCPCS: 87070 ==

== ENCOUNTER 2023-03-05 16:05 | Outpatient (REF) | payer MEDICAID, SELFPAY ==
[2023-03-05 18:33] LABS: Influenza A PCR NEGATIVE (Negative); Influenza B PCR NEGATIVE (Negative); Resp Syncy Virus RNA Qual PCR NEGATIVE (Negative); SARS COV2 PCR INHOUSE NEGATIVE (Negative)
== END 2023-03-05 16:06 | disposition home or self-care (01) ==
LOC: HO.CHCLNP 16:05
PROVIDERS: Visit Provider Family Medicine
DX: R05.1 Acute cough (principal); Z11.52 Encounter for screening for COVID-19
CPT/HCPCS: 0241U

== ENCOUNTER 2023-06-24 08:57 | Emergency (ER) | payer MEDICAID, SELFPAY ==
[2023-06-24 09:24] VITALS: BP 115/77; PULSE 88; RESP 16; TEMP 36.9; O2SAT 99; BMI 29.1
--- NOTE | 2023-06-24 09:25 | ED_ITS ---
HPI - Nausea/Vomiting/Diarrhea General Chief complaint: Nausea/Vomiting/Diarrhea Stated complaint: Vomiting Time Seen by Provider: 06/24/23 09:00 Source: patient Mode of arrival: ambulatory Limitations: no limitations History of Present Illness HPI Narrative: 28 yo female with PMH of ectopic here with c/o abrupt onset n/v/d and some mild abdominal pain that started last night. Her boyfriend and his daughter both have it. They have not traveled, had food exposure, or used abx. She has mild headache and cannot tolerate PO. intussusception surgery as a child MD elicited complaint: nausea, vomiting, diarrhea and abdominal pain Onset (ago): day(s) (last night) Description of vomiting: food contents and watery Description of diarrhea: watery Associated nausea: Yes Associated abdominal pain: Yes Location of pain: diffuse Radiation: diffuse Pain consistency: intermittent Severity: mild Quality: aching Exacerbating factors: eating Relieving factors: none Context: sick contacts Associated symptoms: headaches, loss of appetite, malaise and nausea/vomiting Related Data Home Medications Medication Instructions Recorded Confirmed omeprazole 40 mg capsule,delayed 1 cap PO BID 07/29/21 07/29/21 release Previous Rx's Medication Instructions Recorded ondansetron 4 mg disintegrating 4 mg PO Q8H PRN nausea and 06/24/23 tablet vomiting #20 tabs Allergies Allergy/AdvReac Type Severity Reaction Status Date / Time No Known Allergies Allergy Verified 06/24/23 09:27 Review of Systems 2 Review of Systems: Constitutional : No Weight loss, No Fever, No Chills ENT/Mouth : No sore throat, No Rhinorrhea Eyes: No Swelling, No Redness Cardiovascular : No Chest Pain, No SOB, NoEdema Respiratory : No Cough, No Sputum, No Wheezing Gastrointestinal : Positive Nausea, Positive Vomiting, positive Diarrhea, positive abdominal Pain, No Hematochezia, No Melena Genitourinary : No Dysuria, No Urinary Frequency, No Hematuria, No Urgency Musculoskeletal : No joint pain, No Myalgias, No Joint Swelling Skin : No Skin Lesions, No rash Neuro : No Weakness, No Numbness, No Dizziness, No Headache Psych : No Anxiety/Panic, No Depression Heme/Lymph: No Bruising, No Lymphadenopathy Endocrine : No Polyuria, No Polydipsia All other systems reviewed and are negative. Gastrointestinal: Gastrointestinal: Reports nausea PMFSH Past Medical History Attestation statement: The following information was validated with the patient. Source: old records reviewed Medical History Ectopic No known health problems Surgical History History of intestinal surgery Social History Social History (Updated 06/24/23 @ 09:28 by Berta Boswell DO) Patient Tobacco Use Status: Never used Tobacco Smoked in Last 30 Days: No Use of substances other than those prescribed or required for medical reasons: Yes Substance Use Type: Marijuana Substance Use Frequency: Occasionally Advance Directives: Yes Advance Directives on File: Yes Advance Directives Date on File: 07/31/21 service: No Physical Exam 2 Vital Signs: Vital Signs: Last Vital Signs Temp 98.8 F 06/24/23 10:20 Pulse 69 06/24/23 10:20 Resp 18 06/24/23 10:20 BP 100/49 L 06/24/23 10:20 Pulse Ox 100 06/24/23 10:20 O2 Del Method Room Air 06/24/23 10:20 BMI result Body Mass Index 29.1 Appearance: Alert. Oriented X3. No acute distress. Eyes: Pupils equal, round and reactive to light. ENT: Pharynx mildly dry MM Neck: Normal inspection. Neck supple. CVS: Normal heart rate and rhythm. Pulses normal. Respiratory: No respiratory distress. Breath sounds normal. Abdomen: Soft and non-tender. Skin: Skin warm and dry. Normal skin color. Normal skin turgor. Extremities: No lower extremity edema. Neuro: Oriented X 3. No motor deficit. No sensory deficit. Course Course Course Narrative: feels better stable for DC Medications Administered Discontinued Medications Generic Name Dose Route Start Last Admin Trade Name Freq PRN Reason Stop Dose Admin Diphenhydramine HCl 25 mg 06/24/23 09:17 06/24/23 09:40 Diphenhydramine Hcl 50 Mg/Ml Vial IVPUSH 06/24/23 09:18 25 mg ONCE ONE Administration Sodium Chloride 1,000 mls @ 999 mls/hr 06/24/23 09:30 06/24/23 09:40 Ns IV 06/24/23 10:30 999 mls/hr .Q1H1M CHERI Administration Ketorolac Tromethamine 15 mg 06/24/23 09:17 06/24/23 09:40 Ketorolac Tromethamine 15 Mg/Ml Vial IVPUSH 06/24/23 09:18 15 mg ONCE ONE Administration Metoclopramide HCl 10 mg 06/24/23 09:17 06/24/23 09:40 Metoclopramide Hcl 10 Mg/2 Ml Vial IVPUSH 06/24/23 09:18 10 mg ONCE ONE Administration Medical Decision Making Medical Decision Making [facility] Narrative: 28 yo female with PMH of ectopic , intussusception as a child who comes in with c/o n/v/d and mild abdominal discomfort - at this time will need basic labs, IVF and supportive medications. Her abdominal exam is benign so I have very low suspicion for acute abdominal pathology. Given risk factors and timeline suspect viral syndrome. Differential Diagnosis Differential Diagnoses: The differential diagnosis associated with the presentation includes enteritis, viral syndrome Admission/Observation Consideration of admission/observation: Escalation of care including admission/observation considered feels better, tolerating PO stable for DC Lab Data [facility] Lab Attestation statement: I reviewed the patient's lab results. 06/24/23 09:35 06/24/23 10:24 Labs: Lab Results 06/24/23 06/24/23 06/24/23 Range/Units 09:35 09:45 10:24 WBC 10.5 (4.8-10.8) X10*3/uL RBC 5.59 H D (4.20-5.50) X10*6/uL Hgb 15.5 D (12.0-16.0) g/dl Hct 47.6 H D (37.0-47.0) % MCV 85.2 (80.0-98.0) fL MCH 27.7 (27.0-33.0) pg MCHC 32.6 (31.0-35.0) g/dl RDW 13.6 (11.0-16.0) % Plt Count 329 (160-400) X10*3/uL MPV 9.6 (9.4-12.3) fL Immature Gran % (Auto) 0.3 (0.0-0.4) % Neut % (Auto) 90.8 H (45-73) % Lymph % (Auto) 4.8 L (20-40) % [place] % (Auto) 3.6 (2-11) % Eos % (Auto) 0.3 (0-4) % Baso % (Auto) 0.2 (0-2) % Lymph # (Auto) 0.5 L (1.2-4.9) X10*3/uL [place] # (Auto) 0.4 (0.1-1.2) X10*3/uL Eos # (Auto) 0.0 (0.0-0.4) X10*3/uL Baso # (Auto) 0.0 (0.0-0.2) X10*3/uL Abs Immat Gran (auto) 0.03 (0.00-0.03) X10*3/uL Absolute Neuts (auto) 9.5 H (2.0-8.3) x10*3/uL Absolute Nucleated RBC 0.000 (0.0-0.012) X10*3/uL Nucleated RBC % (auto) 0.0 (0.0-0.2) /100WBC Smear Tech's Comments VERIFIED Sodium 138 (135-145) mmol/L Potassium 4.1 (3.3-5.1) mmol/L Chloride 110 H (96-108) mmol/L Carbon Dioxide 23 (22-29) mmol/L Anion Gap 9 L (12-20) BUN 14 (9-16) mg/dL Creatinine 0.76 (0.5-1.4) mg/dL Estim Creat Clear Calc 100.6 Estimated GFR > 60 Random Glucose 101 (60-115) mg/dL Calcium 9.0 (8.4-10.2) mg/dL Magnesium 1.7 (1.6-2.6) mg/dL Total Bilirubin 0.5 (0.0-1.0) mg/dL Direct Bilirubin 0.2 (0.0-0.5) mg/dL AST 20 (5-31) U/L ALT 31 (0-31) U/L Alkaline Phosphatase 76 (39-117) U/L Total Protein 7.6 (6.5-8.0) g/dL Albumin 4.0 (3.5-5.0) g/dL Lipase 17 (8-78) U/L Beta HCG, Quant < 2 mIU/mL Influenza Type A (PCR) NEGATIVE (Negative) Influenza Type B (PCR) NEGATIVE (Negative) RSV RNA Qual (PCR) NEGATIVE (Negative) SARS-CoV-2 RNA (RT-PCR) NEGATIVE (Negative) External Record Review External record reviewed: Inpatient record Prescription Management I considered prescription management with: Other Discharge Plan Discharge Clinical Impression: Nausea & vomiting Qualifiers: Vomiting type: unspecified Qualified Code(s): R11.2 - Nausea with vomiting, unspecified Diarrhea Qualifiers: Diarrhea type: unspecified type Qualified Code(s): R19.7 - Diarrhea, unspecified Patient Disposition: Home, Self-Care Instructions: Acute Nausea and Vomiting (ED), Acute Diarrhea (ED) Additional Instructions: bland diet over 48 hours then advance slowly. stay hydrated. return for worsening symptoms, pain, inability to eat or drink. blood in stool or any other concerns. urine test negative Prescriptions: New ondansetron 4 mg tablet,disintegrating 4 mg PO Q8H PRN (Reason: nausea and vomiting) Qty: 20 0RF No Action omeprazole 40 mg capsule,delayed release(DR/EC) 1 cap PO BID Stand Alone Forms: Work/School Release
[2023-06-24 09:40] LABS: Basophils Percent Auto 0.2 % (0-2); Eosinophils Percent Auto 0.3 % (0-4); Hematocrit 47.6 % (37.0-47.0); Hemoglobin 15.5 g/dl (12.0-16.0); Imm Gran Abs Auto 0.03 X10*3/uL (0.00-0.03); Imm Gran Pct Auto 0.3 % (0.0-0.4); Lymphocytes Absolute Auto 0.5 X10*3/uL (1.2-4.9); Lymphocytes Percent Auto 4.8 % (20-40); MANUAL DIFF FLAG SCAN; Mean Corpuscular HGB Conc 32.6 g/dl (31.0-35.0); Mean Corpuscular Hemoglobin 27.7 pg (27.0-33.0); Mean Corpuscular Volume 85.2 fL (80.0-98.0); Mean Platelet Volume 9.6 fL (9.4-12.3); Monocytes Absolute Auto 0.4 X10*3/uL (0.1-1.2); Monocytes Percent Auto 3.6 % (2-11); Neutrophils Absolute Auto 9.5 x10*3/uL (2.0-8.3); Neutrophils Percent Auto 90.8 % (45-73); Platelet Count 329 X10*3/uL (160-400); Red Blood Count 5.59 X10*6/uL (4.20-5.50); Red Cell Distribution Width 13.6 % (11.0-16.0); SCAN SMEAR FLAG 1; White Blood Count 10.5 X10*3/uL (4.8-10.8)
[2023-06-24] MEDS: 0.9 % Sodium Chloride 1,000 ML 999 ML IV (09:40)
[2023-06-24] MEDS: diphenhydrAMINE HCL 50 MG/ML VIAL 25 MG IVPUSH (09:40)
[2023-06-24] MEDS: Metoclopramide HCl 10 MG/2 ML VIAL IVPUSH (09:40)
[2023-06-24] MEDS: Ketorolac Tromethamine 15 MG/ML VIAL IVPUSH (09:40)
[2023-06-24 10:20] VITALS: BP 100/49; PULSE 69; RESP 18; TEMP 37.1; O2SAT 100
[2023-06-24 10:28] LABS: SLIDE REVIEW VERIFIED
[2023-06-24 10:31] LABS: Influenza A PCR NEGATIVE (Negative); Influenza B PCR NEGATIVE (Negative); Resp Syncy Virus RNA Qual PCR NEGATIVE (Negative); SARS COV2 PCR INHOUSE NEGATIVE (Negative)
[2023-06-24 10:56] LABS: Alanine Aminotransferase 31 U/L (0-31); Alkaline Phosphatase 76 U/L (39-117); Anion Gap 9 (12-20); Aspartate Amino Transferase 20 U/L (5-31); Bilirubin Direct 0.2 mg/dL (0.0-0.5); Bilirubin Total 0.5 mg/dL (0.0-1.0); Blood Urea Nitrogen 14 mg/dL (9-16); Carbon Dioxide 23 mmol/L (22-29); Chloride 110 mmol/L (96-108); Creatinine Clr Calc Pharmacy 100.6; Estimated Glomerular Filt Rate > 60; Glucose Random 101 mg/dL (60-115); Lipase 17 U/L (8-78); Magnesium 1.7 mg/dL (1.6-2.6); Potassium 4.1 mmol/L (3.3-5.1); Sodium 138 mmol/L (135-145); Total Protein 7.6 g/dL (6.5-8.0)
[2023-06-24 10:58] LABS: HCG Quantitative < 2 mIU/mL
== END 2023-06-24 11:41 | disposition home or self-care (01) ==
PROVIDERS: Emergency Provider Emergency Medicine; PCP Family Medicine
DX: R11.2 Nausea with vomiting, unspecified (principal); R19.7 Diarrhea, unspecified; R10.9 Unspecified abdominal pain; R51.9 Headache, unspecified; Z11.52 Encounter for screening for COVID-19; Z20.822 Contact with and (suspected) exposure to COVID-19; Z79.899 Other long term (current) drug therapy
CPT/HCPCS: 0241U; 36415; 80048; 80076; 83690; 83735; 84702; 85025; 96361; 96374; 96375; 99284; J1200; J1885; J2765

== ENCOUNTER 2023-07-07 09:50 | Emergency (ER) | payer MEDICAID, SELFPAY ==
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
[2023-07-07 10:20] VITALS: BP 115/73; PULSE 72; RESP 18; TEMP 36.6; O2SAT 98; BMI 28.2
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
[2023-07-07] MEDS: Acetaminophen 325 MG TABLET 650 MG PO (12:36)
== END 2023-07-07 12:41 | disposition home or self-care (01) ==
PROVIDERS: Emergency Provider Emergency Medicine; PCP Family Medicine
DX: S22.41XA Multiple fractures of ribs, right side, initial encounter for closed fracture (principal); Y04.8XXA Assault by other bodily force, initial encounter; Y93.9 Activity, unspecified; Y92.9 Unspecified place or not applicable; Y99.9 Unspecified external cause status
CPT/HCPCS: 71111; 99283; 99284

== ENCOUNTER 2023-07-21 09:52 | Outpatient (REF) | payer MEDICAID, SELFPAY ==
--- NOTE | ~2023-07-21 | XR_ITS ---
EXAMINATION: XR CHEST 2 VIEWS CLINICAL INFORMATION: Multiple right rib fractures. COMPARISON: Rib series with chest radiograph dated 07/07/2023. TECHNIQUE: Frontal and lateral views of the chest were obtained. FINDINGS: The heart, great vessels, pulmonary vasculature and mediastinum are normal. The lungs show no focal infiltrate, effusion or pneumothorax. There is no acute osseous abnormality. A healing fracture is noted of the lateral aspect of the right ninth rib. XR/XR chest 2V IMPRESSION: A healing right ninth rib fracture is noted. There is no pleural effusion or pneumothorax.
== END 2023-07-21 09:53 | disposition home or self-care (01) ==
LOC: HO.XRAY 09:52
PROVIDERS: PCP Family Medicine; Visit Provider Internal Medicine
DX: S22.41XD Multiple fractures of ribs, right side, subsequent encounter for fracture with routine healing (principal); S20.222D Contusion of left back wall of thorax, subsequent encounter
CPT/HCPCS: 71046

== ENCOUNTER 2024-02-27 12:21 | Outpatient (REF) | payer MEDICAID, SELFPAY ==
[2024-02-27 13:27] LABS: MANUAL DIFF FLAG NO
[2024-02-27 13:43] LABS: Basophils Absolute Auto 0.1 X10*3/uL (0.0-0.2); Basophils Percent Auto 0.8 % (0-2); Eosinophils Absolute Auto 0.2 X10*3/uL (0.0-0.4); Eosinophils Percent Auto 2.3 % (0-4); Hematocrit 38.9 % (37.0-47.0); Hemoglobin 12.6 g/dl (12.0-16.0); Imm Gran Abs Auto 0.02 X10*3/uL (0.00-0.03); Imm Gran Pct Auto 0.3 % (0.0-0.4); Lymphocytes Absolute Auto 1.9 X10*3/uL (1.2-4.9); Lymphocytes Percent Auto 24.2 % (20-40); Mean Corpuscular HGB Conc 32.4 g/dl (31.0-35.0); Mean Corpuscular Hemoglobin 27.9 pg (27.0-33.0); Mean Corpuscular Volume 86.3 fL (80.0-98.0); Mean Platelet Volume 9.9 fL (9.4-12.3); Monocytes Absolute Auto 0.5 X10*3/uL (0.1-1.2); Monocytes Percent Auto 6.1 % (2-11); Neutrophils Absolute Auto 5.3 x10*3/uL (2.0-8.3); Neutrophils Percent Auto 66.3 % (45-73); Platelet Count 405 X10*3/uL (160-400); Red Blood Count 4.51 X10*6/uL (4.20-5.50); Red Cell Distribution Width 13.7 % (11.0-16.0); White Blood Count 7.9 X10*3/uL (4.8-10.8)
[2024-02-27 14:24] LABS: Alanine Aminotransferase 59 U/L (0-31); Albumin Level 4.3 g/dL (3.5-5.0); Alkaline Phosphatase 77 U/L (39-117); Anion Gap 14 (12-20); Aspartate Amino Transferase 41 U/L (5-31); Bilirubin Total 0.2 mg/dL (0.0-1.0); Blood Urea Nitrogen 11 mg/dL (9-16); Calcium 10.3 mg/dL (8.4-10.2); Carbon Dioxide 25 mmol/L (22-29); Chloride 105 mmol/L (96-108); Cholesterol 181 mg/dL (<200); Estimated Glomerular Filt Rate > 60; Glucose Random 82 mg/dL (60-115); HDL Cholesterol 64 mg/dL (>40); LDL Cholesterol Calculated 100 mg/dL (<100); Sodium 140 mmol/L (135-145); Total Protein 8.2 g/dL (6.5-8.0); Triglycerides 86 mg/dL (<150)
[2024-02-28 08:52] LABS: HIV AB/AG Nonreactive (Nonreactive); HIV Num 1 0.06 S/CO (0.00-0.99); ~HepC Num1 0.31 S/CO (0.00-0.79); ~Hepatitis C Antibody Nonreactive (Nonreactive)
[2024-02-28 09:08] LABS: Syphilis Screen Nonreactive (Nonreactive)
== END 2024-02-27 12:22 | disposition home or self-care (01) ==
LOC: HO.HMGCLDS 12:21
PROVIDERS: PCP Family Medicine; Visit Provider Family Medicine
DX: E66.811 Obesity, class 1 (principal); Z68.30 Body mass index [BMI] 30.0-30.9, adult; Z13.9 Encounter for screening, unspecified
CPT/HCPCS: 80053; 80061; 84443; 85025; 86780; 86803; 87389

== ENCOUNTER 2024-02-27 14:50 | Outpatient (REF) | payer MEDICAID, SELFPAY ==
[2024-02-28 01:38] LABS: CT PCR NOT DETECTED (Not Detect.); NG PCR NOT DETECTED (Not Detect.)
== END 2024-02-27 14:51 | disposition home or self-care (01) ==
LOC: HO.CHCLNP 14:50
PROVIDERS: Visit Provider Family Medicine
DX: Z13.9 Encounter for screening, unspecified (principal)
CPT/HCPCS: 80053; 80061; 84443; 85025; 86780; 86803; 87389; 87491; 87591

== ENCOUNTER 2024-03-09 14:31 | Outpatient (REF) | payer MEDICAID, SELFPAY ==
[2024-03-10 11:47] LABS: HPV 16,18/45 See PAP report
== END 2024-03-09 14:32 | disposition home or self-care (01) ==
LOC: HO.HHCLNP 14:31
PROVIDERS: Visit Provider Family Medicine
DX: Z12.4 Encounter for screening for malignant neoplasm of cervix (principal)
CPT/HCPCS: 87624; 88175

== ENCOUNTER 2024-05-18 08:34 | Emergency (ER) | payer MEDICAID, SELFPAY ==
--- NOTE | ~2024-05-18 | US_ITS ---
EXAMINATION: US FIRST TRIMESTER OB HISTORY: vag bleeding 7 wks preg TECHNIQUE: Transabdominal scanning was performed. FINDINGS: There is a single, live intrauterine . AUA = 6 weeks 6 days QUINTIN(AUA) = 01/05/2025 LMP = 03/27/2024 GA(LMP) = 7 weeks 3 days QUINTIN(LMP) = 01/01/2025 CRL = 0.82cm Yolk Sac: seen FHR = 139bpm Right ovary: The right ovary measures 3.0 x 1.4 x 2.8 cm and is unremarkable. Left ovary: The left ovary measures 3.9 x 2.2 x 2.7 cm and demonstrates a 2.0 x 1.6 x 1.6 cm hypoechoic structure which likely represents the corpus luteum. Cul-de-sac: No free fluid US/US OB <= 14 weeks fetus IMPRESSION: Single, live intrauterine of estimated gestational age 6 weeks, 6 days. Electronically signed by: Marcell Klein MD 05/18/2024 11:11 AM MAULIK
[2024-05-18 08:38] VITALS: BP 124/49; PULSE 67; RESP 18; TEMP 36.6; O2SAT 100; BMI 29.2
[2024-05-18 09:13] LABS: MANUAL DIFF FLAG NO
[2024-05-18 09:14] LABS: Basophils Percent Auto 0.4 % (0-2); Eosinophils Absolute Auto 0.2 X10*3/uL (0.0-0.4); Eosinophils Percent Auto 2.2 % (0-4); Hematocrit 36.6 % (37.0-47.0); Hemoglobin 12.1 g/dl (12.0-16.0); Imm Gran Abs Auto 0.04 X10*3/uL (0.00-0.03); Imm Gran Pct Auto 0.5 % (0.0-0.4); Lymphocytes Absolute Auto 1.6 X10*3/uL (1.2-4.9); Lymphocytes Percent Auto 18.7 % (20-40); Mean Corpuscular HGB Conc 33.1 g/dl (31.0-35.0); Mean Corpuscular Volume 84.7 fL (80.0-98.0); Mean Platelet Volume 9.7 fL (9.4-12.3); Monocytes Absolute Auto 0.6 X10*3/uL (0.1-1.2); Monocytes Percent Auto 6.6 % (2-11); Neutrophils Percent Auto 71.6 % (45-73); Platelet Count 330 X10*3/uL (160-400); Red Blood Count 4.32 X10*6/uL (4.20-5.50); Red Cell Distribution Width 13.2 % (11.0-16.0); White Blood Count 8.3 X10*3/uL (4.8-10.8)
[2024-05-18 09:29] LABS: Alanine Aminotransferase 55 U/L (0-31); Alkaline Phosphatase 70 U/L (39-117); Anion Gap 9 (12-20); Aspartate Amino Transferase 30 U/L (5-31); Bilirubin Total 0.2 mg/dL (0.0-1.0); Blood Urea Nitrogen 7 mg/dL (9-16); Calcium 9.2 mg/dL (8.4-10.2); Carbon Dioxide 24 mmol/L (22-29); Chloride 107 mmol/L (96-108); Creatinine Clr Calc Pharmacy 108.5; Estimated Glomerular Filt Rate > 60; Glucose Random 96 mg/dL (60-115); Potassium 3.9 mmol/L (3.3-5.1); Sodium 136 mmol/L (135-145); Total Protein 7.8 g/dL (6.5-8.0)
[2024-05-18 09:56] LABS: HCG Quantitative 73474 mIU/mL
[2024-05-18 11:04] LABS: Appearance Urine Clear; Color Urine Yellow; Glucose Urine UA Negative (Negative); Leukocyte Esterase Urine Negative (Negative); Nitrite Urine Negative (Negative); PH 6.5 (5.0-9.0); Urine Blood Negative (Negative); Urine Ketones Negative (Negative); Urine Protein Negative (Neg-Trace)
--- NOTE | 2024-05-18 11:17 | ED_ITS ---
HPI - General Chief complaint: Vaginal Bleeding Stated complaint: Vaginal bleeding - pt is Time Seen by Provider: 05/18/24 11:16 Source: patient Mode of arrival: ambulatory Limitations: no limitations History of Present Illness ED Provider: Dr. Aldo Estes HPI Narrative: 29-year-old female history of anemia, (1 ectopic in 2 spontaneous miscarriages) proximally 7 weeks , LMP 03/27/2024 who presents emergency department for evaluation of vaginal spotting starting last night. Patient states that she urinated last night and when she wiped she noted a pinkish discoloration on the toilet paper. She states that this happened again this morning. The patient denied urgency or dysuria but she states she was had frequency throughout the which is unchanged. She denied abdominal pain. She states she was had nausea throughout the but no vomiting. She denied fever or chills. Patient states she was had 2 miscarriages and she was concerned that she may be having a miscarriage therefore she came to the emergency department for evaluation. She was not noticed any vaginal discharge, dark blood or blood clots vaginally. Patient states she was getting her care through the [facility]. Patient was taking vitamins Related Data Home Medications ?Medication ?Instructions ?Recorded ?Confirmed omeprazole 40 mg capsule,delayed 1 cap PO BID 07/29/21 07/29/21 release Previous Rx's ?Medication ?Instructions ?Recorded ondansetron 4 mg disintegrating 4 mg PO Q8H PRN nausea and 06/24/23 tablet vomiting #20 tabs Allergies Allergy/AdvReac Type Severity Reaction Status Date / Time No Known Allergies Allergy Verified 05/18/24 08:40 Review of Systems 2 Review of Systems: Yes all other systems are reviewed and are negative [facility] Past Medical History [facility] Narrative: Social history: She denies tobacco, alcohol and drug use. Medical History Ectopic No known health problems Surgical History History of intestinal surgery Social History Social History Patient Tobacco Use Status: Never used Tobacco Substance Use Type: Marijuana Advance Directives: Yes Advance Directives on File: Yes Advance Directives Date on File: 07/31/21 service: No Physical Exam 2 Vital Signs: Vital Signs: Last Vital Signs Temp 97.9 F 05/18/24 11:46 Pulse 69 05/18/24 11:46 Resp 16 05/18/24 11:46 BP 111/40 L 05/18/24 11:46 Pulse Ox 100 05/18/24 11:46 O2 Del Method Room Air 05/18/24 11:46 BMI result Body Mass Index 29.2 Vital signs were Exam: General: Awake, alert in no distress Head: Normocephalic, atraumatic EENT: PERRL, Lids normal, sclera normal, conjunctiva normal, nose normal , ears normal, throat without erythema or exudates Neck: Supple, no adenopathy Lung: breath sounds symmetric, no wheezing, rales or rhonchi Chest: symmetric movement, nontender Heart: regular rate and rhythm, normal S1, S2 no murmurs or rubs Abdomen: soft, non-tender, nondistended, normal bowel sounds Back: no vertebral tenderness, no CVAT Extremities: no deformities, moves all extremities symmetrically Neuro: Awake, alert, oriented, normal speech, cranial nerves intact, moves all extremities symmetrically Psych: Pleasant, cooperative Medical Decision Making Medical Decision Making MDM Narrative: 29-year-old female history of anemia, (1 ectopic in 2 spontaneous miscarriages) proximally 7 weeks , LMP 03/27/2024 who presents emergency department for evaluation of vaginal spotting starting last night and again this morning. Patient denied urgency or dysuria but he was had frequency throughout the . She denied fever, chills, abdominal pain, vaginal discharge, dark blood per her vagina or blood clots. Vital signs were normal. Physical examination revealed no abdominal tenderness. Differential diagnosis: ?Includes but is not limited to vaginal bleeding with , threatened miscarriage, urinary tract infection, anemia, electrolyte abnormality Course: My interpretation patient's laboratory evaluation is as follows: WBC was normal 8300. H&H was normal at 12 and 36.0. Platelet count was normal 330. CMP revealed an elevated ALT of 55 otherwise unremarkable. Urinalysis was negative. Quantitative beta-hCG was 73,474. Patient's blood type is A positive. Ultrasound revealed a single intrauterine measuring 6 weeks and 6 days which correlates with her gestational age of 7 weeks and 3 days based on her last menstrual period. heart rate was 139 beats per minute and there was no source for the patient's vaginal spotting. I did discuss this with the patient and I did discuss vaginal bleeding in early with the patient. Patient was advised to continue your vitamins. She was advised to avoid intercourse for 2 weeks and to follow the threatened instructions. She was given a work note to return to work tomorrow. I also told her that she should discuss whether or not she needs to be considered a high-risk with her OBGYN providers at [facility] and she should consider getting her care transferred to [facility] [place] since she was at risk for it was spontaneous and labor. Admission/Observation Consideration of admission/observation: Escalation of care including admission/observation considered (Yes) Lab Data MDM Lab Attestation statement: I reviewed the patient's lab results. 05/18/24 09:07 05/18/24 09:07 Labs: Lab Results 05/18/24 05/18/24 Range/Units 09:07 10:51 WBC 8.3 (4.8-10.8) X10*3/uL RBC 4.32 (4.20-5.50) X10*6/uL Hgb 12.1 (12.0-16.0) g/dl Hct 36.6 L (37.0-47.0) % MCV 84.7 (80.0-98.0) fL MCH 28.0 (27.0-33.0) pg MCHC 33.1 (31.0-35.0) g/dl RDW 13.2 (11.0-16.0) % Plt Count 330 (160-400) X10*3/uL MPV 9.7 (9.4-12.3) fL Immature Gran % (Auto) 0.5 H (0.0-0.4) % Neut % (Auto) 71.6 (45-73) % Lymph % (Auto) 18.7 L (20-40) % [place] % (Auto) 6.6 (2-11) % Eos % (Auto) 2.2 (0-4) % Baso % (Auto) 0.4 (0-2) % Lymph # (Auto) 1.6 (1.2-4.9) X10*3/uL [place] # (Auto) 0.6 (0.1-1.2) X10*3/uL Eos # (Auto) 0.2 (0.0-0.4) X10*3/uL Baso # (Auto) 0.0 (0.0-0.2) X10*3/uL Abs Immat Gran (auto) 0.04 H (0.00-0.03) X10*3/uL Absolute Neuts (auto) 6.0 (2.0-8.3) x10*3/uL Absolute Nucleated RBC 0.000 (0.0-0.012) X10*3/uL Nucleated RBC % (auto) 0.0 (0.0-0.2) /100WBC Sodium 136 (135-145) mmol/L Potassium 3.9 (3.3-5.1) mmol/L Chloride 107 (96-108) mmol/L Carbon Dioxide 24 (22-29) mmol/L Anion Gap 9 L (12-20) BUN 7 L (9-16) mg/dL Creatinine 0.70 (0.5-1.4) mg/dL Estim Creat Clear Calc 108.5 Estimated GFR > 60 Random Glucose 96 (60-115) mg/dL Calcium 9.2 D (8.4-10.2) mg/dL Total Bilirubin 0.2 (0.0-1.0) mg/dL AST 30 (5-31) U/L ALT 55 H (0-31) U/L Alkaline Phosphatase 70 (39-117) U/L Total Protein 7.8 (6.5-8.0) g/dL Albumin 4.0 (3.5-5.0) g/dL Beta HCG, Quant 94398 mIU/mL Urine Color Yellow Urine Appearance Clear Urine pH 6.5 (5.0-9.0) Ur Specific [place] 1.010 (1.005-1.025) Urine Protein Negative (Neg-Trace) mg/dL Urine Glucose (UA) Negative (Negative) mg/dL Urine Ketones Negative (Negative) mg/dL Urine Blood Negative (Negative) Urine Nitrite Negative (Negative) Ur Leukocyte Esterase Negative (Negative) Blood Type A Positive Radiology Impression Discussion of test interpretation with radiology: I have reviewed the radiologist's reading. Radiologist Impression: EXAMINATION: US FIRST TRIMESTER OB FINDINGS: There is a single, live intrauterine . AUA = 6 weeks 6 days QUINTIN(AUA) = 01/05/2025 LMP = 03/27/2024 GA(LMP) = 7 weeks 3 days QUINTIN(LMP) = 01/01/2025 CRL = 0.82cm Yolk Sac: seen FHR = 139bpm Right ovary: The right ovary measures 3.0 x 1.4 x 2.8 cm and is unremarkable. Left ovary: The left ovary measures 3.9 x 2.2 x 2.7 cm and demonstrates a 2.0 x 1.6 x 1.6 cm hypoechoic structure which likely represents the corpus luteum. Cul-de-sac: No free fluid IMPRESSION: Single, live intrauterine of estimated gestational age 6 weeks, 6 days. Electronically signed by: Marcell Klein MD 05/18/2024 11:11 AM EST Discharge Plan Discharge Clinical Impression: First trimester bleeding Patient Disposition: Home, Self-Care Instructions: Threatened Miscarriage (ED) Additional Instructions: Your blood work was unremarkable. Your urine test was normal with no evidence for infection. Your blood type is A positive. The ultrasound revealed no source for the vaginal spotting which is reassuring. You have 1 baby that is 6 weeks and 6 days old based on the ultrasound. This is also reassuring since it correlates with fact that you are 7 weeks . Follow the threatened miscarriage instructions. No sex for at least 2 weeks. You should talk to your doctors at [facility] about whether or not you are a high- risk and with the you should deliver at [facility] since they have a intensive care unit in the event that you may delivered prematurely before 40 weeks of . Continue taking your vitamins. Follow-up with your OBGYN provider in 2 days. Please return to the emergency department if your symptoms get worse or if you develop any symptoms that are concerning to you. Please see the work note US OB <= 14 weeks fetus FINDINGS: There is a single, live intrauterine . AUA = 6 weeks 6 days QUINTIN(AUA) = 01/05/2025 LMP = 03/27/2024 GA(LMP) = 7 weeks 3 days QUINTIN(LMP) = 01/01/2025 CRL = 0.82cm Yolk Sac: seen FHR = 139bpm Right ovary: The right ovary measures 3.0 x 1.4 x 2.8 cm and is unremarkable. Left ovary: The left ovary measures 3.9 x 2.2 x 2.7 cm and demonstrates a 2.0 x 1.6 x 1.6 cm hypoechoic structure which likely represents the corpus luteum. Cul-de-sac: No free fluid IMPRESSION: Single, live intrauterine of estimated gestational age 6 weeks, 6 days. Electronically signed by: Marcell Klein MD 05/18/2024 11:11 AM EST Dictated By: Marcell Klein MD Prescriptions: No Action omeprazole 40 mg capsule,delayed release(DR/EC) 1 cap PO BID ondansetron 4 mg tablet,disintegrating 4 mg PO Q8H PRN (Reason: nausea and vomiting) Qty: 20 0RF Stand Alone Forms: Work/School Release Interventions: ED Discharge Assessment Last Done: 05/18/24 11:46 Discharge Date/Time: 05/18/24 11:47 Print Language: [place]
--- NOTE | 2024-05-18 11:44 | PC.NURSE ---
pt was seen by Dr Estes and results were reviewed with her. She is agreeable to discharge plan for follow up with OB. Pt agrees and discharge pending
[2024-05-18 11:46] VITALS: BP 111/40; PULSE 69; RESP 16; TEMP 36.6; O2SAT 100
== END 2024-05-18 11:47 | disposition home or self-care (01) ==
PROVIDERS: Emergency Provider Emergency Medicine Emergency Medical Services; PCP Family Medicine
DX: O20.9 Hemorrhage in early pregnancy, unspecified (principal); O21.0 Mild hyperemesis gravidarum; Z3A.01 Less than 8 weeks gestation of pregnancy; Z79.899 Other long term (current) drug therapy
CPT/HCPCS: 36415; 76801; 80053; 81003; 84702; 85025; 86900; 86901; 99282; 99284

== ENCOUNTER 2024-07-22 22:37 | Emergency (ER) | payer MEDICAID, SELFPAY ==
[2024-07-22 23:21] VITALS: BP 108/48; PULSE 75; RESP 18; TEMP 36.8; O2SAT 100; BMI 28.9
[2024-07-22 23:34] LABS: MANUAL DIFF FLAG NO
[2024-07-22 23:38] LABS: Basophils Percent Auto 0.2 % (0-2); Eosinophils Absolute Auto 0.3 X10*3/uL (0.0-0.4); Hematocrit 33.1 % (37.0-47.0); Hemoglobin 11.6 g/dl (12.0-16.0); Imm Gran Abs Auto 0.05 X10*3/uL (0.00-0.03); Imm Gran Pct Auto 0.4 % (0.0-0.4); Lymphocytes Absolute Auto 2.5 X10*3/uL (1.2-4.9); Lymphocytes Percent Auto 19.6 % (20-40); Mean Corpuscular Hemoglobin 28.9 pg (27.0-33.0); Mean Corpuscular Volume 82.3 fL (80.0-98.0); Mean Platelet Volume 9.4 fL (9.4-12.3); Monocytes Absolute Auto 0.7 X10*3/uL (0.1-1.2); Monocytes Percent Auto 5.4 % (2-11); Neutrophils Absolute Auto 9.2 x10*3/uL (2.0-8.3); Neutrophils Percent Auto 72.4 % (45-73); Platelet Count 324 X10*3/uL (160-400); Red Blood Count 4.02 X10*6/uL (4.20-5.50); Red Cell Distribution Width 13.2 % (11.0-16.0); White Blood Count 12.7 X10*3/uL (4.8-10.8)
[2024-07-22 23:48] LABS: Alanine Aminotransferase 51 U/L (0-31); Albumin Level 3.8 g/dL (3.5-5.0); Alkaline Phosphatase 74 U/L (39-117); Anion Gap 11 (12-20); Aspartate Amino Transferase 28 U/L (5-31); Bilirubin Total 0.2 mg/dL (0.0-1.0); Blood Urea Nitrogen 8 mg/dL (9-16); Carbon Dioxide 22 mmol/L (22-29); Chloride 107 mmol/L (96-108); Creatinine Clr Calc Pharmacy 123.8; Estimated Glomerular Filt Rate > 60; Glucose Random 75 mg/dL (60-115); Sodium 136 mmol/L (135-145); Total Protein 7.8 g/dL (6.5-8.0)
== END 2024-07-23 01:43 | disposition left against medical advice (07) ==
PROVIDERS: Emergency Provider Emergency Medicine
DX: O23.592 Infection of other part of genital tract in pregnancy, second trimester (principal); Z3A.16 16 weeks gestation of pregnancy
CPT/HCPCS: 36415; 80053; 85025; 99281

== ENCOUNTER 2024-10-22 16:18 | Outpatient (REF) | payer MEDICAID, SELFPAY ==
--- OUTSIDE RECORDS SUMMARY | 2024-10-22 16:21 | XMS_ITS ---
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
[2024-10-22 17:28] LABS: MANUAL DIFF FLAG NO
[2024-10-22 17:36] LABS: INTERNATIONAL NORM RATIO 0.9 (0.9-1.1); Prothrombin Time 10.7 SEC (10.9-12.4)
[2024-10-22 17:41] LABS: Basophils Percent Auto 0.3 % (0-2); Eosinophils Absolute Auto 0.2 X10*3/uL (0.0-0.4); Eosinophils Percent Auto 1.9 % (0-4); Hematocrit 32.2 % (37.0-47.0); Hemoglobin 10.7 g/dl (12.0-16.0); Imm Gran Abs Auto 0.13 X10*3/uL (0.00-0.03); Imm Gran Pct Auto 1.4 % (0.0-0.4); Lymphocytes Absolute Auto 1.3 X10*3/uL (1.2-4.9); Lymphocytes Percent Auto 13.9 % (20-40); Mean Corpuscular HGB Conc 33.2 g/dl (31.0-35.0); Mean Corpuscular Hemoglobin 28.5 pg (27.0-33.0); Mean Corpuscular Volume 85.9 fL (80.0-98.0); Mean Platelet Volume 10.1 fL (9.4-12.3); Monocytes Absolute Auto 0.7 X10*3/uL (0.1-1.2); Monocytes Percent Auto 7.8 % (2-11); Neutrophils Percent Auto 74.7 % (45-73); Platelet Count 297 X10*3/uL (160-400); Red Blood Count 3.75 X10*6/uL (4.20-5.50); Red Cell Distribution Width 12.8 % (11.0-16.0); White Blood Count 9.4 X10*3/uL (4.8-10.8)
[2024-10-22 18:11] LABS: Alanine Aminotransferase 27 U/L (0-31); Albumin Level 3.6 g/dL (3.5-5.0); Alkaline Phosphatase 78 U/L (39-117); Aspartate Amino Transferase 24 U/L (5-31); Bilirubin Direct < 0.2 mg/dL (0.0-0.5); Bilirubin Total 0.1 mg/dL (0.0-1.0)
== END 2024-10-22 16:19 | disposition home or self-care (01) ==
LOC: HO.CHCLDS 16:18
PROVIDERS: Visit Provider Internal Medicine
DX: R04.0 Epistaxis (principal)
CPT/HCPCS: 36415; 80076; 85025; 85610; 85730

== ENCOUNTER 2025-04-09 04:49 | Emergency (ER) | payer MEDICAID, SELFPAY ==
--- NOTE | ~2025-04-09 | XR_ITS ---
CLINICAL HISTORY: pain 18 view left shoulder Comparison: None provided Findings: Bones intact. No dislocations. No significant loss of joint space or osteophytes. No erosions. No radiopaque foreign body. IMPRESSION: 1. No acute findings This document has been electronically signed by: Selvin Kelly MD on 04/09/2025 07:28:39
--- NOTE | ~2025-04-09 | XR_ITS ---
CLINICAL HISTORY: pain 2 view, 10 images left humerus Comparison: None provided Findings: No fractures or dislocations. No significant arthritic change. No radiopaque foreign body. IMPRESSION: 1. Normal left humerus This document has been electronically signed by: Selvin Kelly MD on 04/09/2025 07:21:58
[2025-04-09 05:22] VITALS: BP 117/53; PULSE 72; RESP 18; TEMP 36.8; O2SAT 98; BMI 31.1
[2025-04-09 06:00] VITALS: BP 113/59; PULSE 65; TEMP 36.8; O2SAT 99
--- OUTSIDE RECORDS SUMMARY | 2025-04-09 06:18 | XMS_ITS | Encounter Summary ---
Author Organization [employer] Address [address] [facility] [address] [place] [address] Care Team Providers Care Pipe Straightener Name Role Phone Ruby Gonzalez MD Primary Care Provider [phone] Reason for Visit * Reason Comments Med Change Request Encounter Details Date Type Department Care Team ([facility] Contact Info) Description 03/03/2023 Refill [facility] [address] [place], [place] [phone] Ruby Gonzalez MD [address] [place] [address] Encounter for initial prescription of transdermal patch hormonal contraceptive device Social History Tobacco Use Types Packs/Day Years Used Date Smoking Tobacco: Never Smokeless Tobacco: Never Alcohol Use Standard Drinks/Week Comments Yes 0 (1 standard drink = 0.6 oz pur e alcohol) Depression Answer Date Recorded Patient Health Questionnaire-9 Score 9 01/31/2023 Housing Stability Answer Date Recorded What is your housing situation today? I have desmond yuan 02/14/[address] you li ve. Do you have problems with any of the following? None of the above 02/14/2023 Food Insecurity Answer Date Recorded Within the past 12 months, y ou worried that your food would run out before you got money to buy more: Never True 02/14/2023 Within the past 12 months,th e food you bought just didn't last and you didn't have enough money to get more: Never True Transportation Answer Date Recorded In the past 12 months, has l ack of transportation kept you from medical appts, meetings, work or from getting things needed for daily living? No 02/14/2023 Utilities Answer Date Recorded In the past 12 months, has t he electric, gas, oil or water company threatened to shut off services in your home? No 02/14/2023 Depression Answer Date Recorded Patient Health Questionnaire-2 Score 4 01/31/2023 Comments No Sex and Gender Information Value Date Recorded Sex Assigned at Female 02/25/2022 10:17 AM EDT Legal Sex Female 10:17 AM EDT Gender Identity Female 02/25/2022 10:17 AM EDT Sexual Orientation Straight 02/25/2022 10 :17 AM EDT documented as of this encounter Plan of Treatment Not on file documented as of this encounter Visit Diagnoses Diagnosis Encounter for initial prescription of transdermal patch hormonal contraceptive device documented in this encounter Additional Health Concerns Assessment Noted Time PHQ-9 Depression Total Score: 9 02/01/20 23 1:29 PM EDT documented as of this encounter Care Teams Pipe Straightener Relationship Specialty Start Date End Date Ruby Gonzalez MD [address] [place] [phone] PCP - General Family Medicine 08/09/21 documented as of this encounter
--- OUTSIDE RECORDS SUMMARY | 2025-04-09 06:18 | XMS_ITS | Clinical Summary ---
Author Organization [employer] Address [address] [facility] 7[address] [place] [address] Care Team Providers Care Creative Producer Name Role Phone Ruby Gonzalez MD Primary Care Provider [phone] Allergies No known active allergies Medications * This document contains information received from the source organization and may not represent a complete record from that organization. Spacer/Aero-Holdi ng Chambers device 1 Units in the morning. 1 Units 3 Active Additional Information Patient not taking.Reported on 08/25/2024 cetirizine (ZyrTEC) 10 MG tablet Take 1 tablet (10 mg) by mouth in the morning. 90 tablet 1 3 Active norelgestromin-et hinyl estradiol (Xulane) 150-35 MCG/24HRIndicatio ns:Encounter for initial prescription of transdermal patch hormonal contraceptive device Apply 1 patch each week for 3 weeks, then remove for 1 week. 3 patch 12 3 Active fluticasone (Flonase) 50 MCG/ACT nasal sprayIndications: Allergic rhinitis, unspecified seasonality, unspecified trigger Administer 1-2 sprays into each nostril in the morning. Shake gently. Before first use, prime pump. After use, clean tip and replace cap. 48 mL 1 4 Active Additional Information Patient not taking.Reported on 08/25/2024 meloxicam (Mobic) 15 MG tabletIndications :Closed fracture of multiple ribs of right side with routine healing, subsequent encounter,Contusi on of left back wall of thorax, subsequent encounter TAKE 1 TABLET BY MOUTH EVERY MORNING 90 tablet 4 Active Additional Information Patient not taking.Reported on 08/25/2024 venlafaxine XR (Effexor XR) 75 MG 24 hr capsuleIndication s:Anxiety Take 1 capsule (75 mg) by mouth Once per day. Do not crush or chew. 90 capsule 1 4 Active Additional Information Patient not taking.Reported on 08/25/2024 hydrOXYzine HCl (Atarax) 25 MG tabletIndications :Anxiety Take 0.5 tablets (12.5 mg) by mouth if needed in the morning, at noon, and at bedtime for anxiety. 45 tablet 1 4 Active busPIRone (Buspar) 7.5 MG tabletIndications :Anxiety Take 1 tablet (7.5 mg) by mouth 2 times daily. 60 tablet 2 4 Active Additional Information Patient not taking.Reported on 08/25/2024 clotrimazole (Lotrimin) 1 % cream Apply to skin and toenails daily for 12 weeks 4 Active albuterol 108 (90 Base) MCG/ACT inhalerIndication s:Mild intermittent asthma, unspecified whether complicated Inhale 2 puffs every 4 (four) hours if needed for wheezing. 18 g 1 4 Active Additional Information Patient not taking.Reported on 08/25/2024 Semaglutide-Weigh t Management (Wegovy) 0.5 MG/0.5ML solution auto-injector Inject 0.5 mL (0.5 mg) under the skin 1 (one) time per week. 2 mL 1 4 Active Additional Information Patient not taking.Reported on 08/25/2024 omeprazole (PriLOSEC) [address] capsuleIndication s:Subacute cough TAKE 1 CAPSULE (40 MG) BY MOUTH BEFORE BREAKFAST AND BEFORE EVENING MEAL. DO NOT CRUSH OR CHEW 180 capsule 1 5 Active bacitracin 500 UNIT/GM ointmentIndicatio ns:Herpes Apply topically 2 times daily. 14 g 5 Active Active Problems Problem Noted Date Diagnosed Date Cervical cancer screening 03/09/2024 Assessment & Plan (03/09/2024 12:00 PM EST): 28 y.o. here for cervical cancer screening. Will continue monitoring following ASCCP guidelines. Mild intermittent asthma without complication Assessment & Plan (03/01/2024 1:26 AM EST): Refilled -Albuterol 108 (90 Base) MCG/ACT inhaler Class 1 obesity without seri ous comorbidity with body mass index (BMI) of 30.0 to 30.9 in adult 02/27/2024 Assessment & Plan (03/01/2024 1:27 AM EST): Reviewed indications for pharmacotherapy with patient, which is treatment for patient w/ obesity or a patient with a BMI > 27 w/ CV risk factors who have failed lifestyle modifications alone. These are always prescribed in combination with ongoing lifestyle modification; and will be titrated up from the lowest dose. Will start patient on Wegovy, given know efficacy and proven benefits to reduce the risk of cardiovascular events in patients who are overweight or obese and have cardiovascular disease, following of the SELECT trial results. Reviewed mechanism of action with patient. Discussed side effects with patient: nausea, vomiting, diarrhea & risk of pancreatitis. No contraindications identified: , hx of pancreatitis, hx of medullary thyroid cancer or MEN 2. Discussed calorie deficit, recommended reduction of 20-30% of maintenance calories; retread technician referral offered. Recommended to decrease soda and sugary beverage consumption. Recommended at least 20 g per meal of protein to assist with satiety. Recommended at least 150 min/week of moderate intensity exercise. Relevant orders: Semaglutide-Weight Management (Wegovy) 0.25 MG/0.5ML solution auto-injector Moderate episode of recurren t major depressive disorder ([facility]) 08/27/2023 Anxiety 01/31/2023 Assessment & Plan (08/27/2023 2:59 PM EDT): Uncontrolled due to non compliance in the setting of not having her insurance, will restart SNRI, add buspar, 1/2 dose of hdyroxyzine. Followup in 2 weeks via telemedicine. Referring to psychiatrist and gave a list of provider options. Discussed medications and refills as needed. Assessment & Plan (03/31/2023 2:40 PM EST): Patient that presented visit with complaints of anxiety reports doing well, including with the medication prescribed. Will not make any changes at this time. Advised if medications improve symptoms, will discontinue. However, if symptoms don't improve, and exacerbate within the next 2-3 months, will increase medications. Assessment & Plan (03/03/2023 4:15 PM EST): Patient with complaints of anxiety will be having a decrease of medication: 25mg. Assessment & Plan (02/17/2023 7:50 PM EDT): Discussed with patient she need controller medication, will start on effexor, explain to patient that BZO will also give her sedation symptoms with the caveat of risk of addiction. She insist that she didn't have side effect when she trial her mothers Klonopin. Again, will provide short prescription to use prn, explain that I WILL NOT SENT THIS PRESCRIPTION AGAIN and if she feels she is not being well controller with SNRI, she should follow with a mental health youth care professional. Followup in 2 weeks via telemedicine Assessment & Plan (02/03/2023 11:38 AM EDT): Patient with symptoms of anxiety. No risk of self-harm, SI or HI. Reason for visit was to assess symptoms and provide referral. Symptoms are present in the context of stress at work and history of severe anxiety. Plan is to refer patient to agency for OP services. Provided psychoeducation around anxiety, panic attacks and provided coping mechanisms to use during episodes. [facility] information provided for same-day appointments as well. At this time Heladio Coby Kaminski meets criteria for Visit Diagnoses: Problem List Items Addressed This Visit Other Anxiety Patient ready to address current needs Yes Strengths include readiness and motivation to address problem PLAN: 1. Follow up with [facility]: Not recommended for follow-up 2. Patient goal is to be connected with long-term therapy services 3. Behavioral Recommendations a. Referral for OP individual therapy b. Incorporate mindfulness techniques into daily routine c. Practice self-care Encounter for initial prescr iption of transdermal patch hormonal contraceptive device 12/13/2022 Assessment & Plan (12/13/2022 9:16 AM EDT): Will send labs to check levels. Screening for tuberculosis 12/13/2022 Assessment & Plan (12/13/2022 9:15 AM EDT): Will send for TB spot. Migraine headache with aura 05/16/2020 Resolved Problems Problem Noted Date Diagnosed Date Resolved Date Acute cough 03/05/2023 02/27/2024 Assessment & Plan (03/05/2023 3:51 PM EST): Recommended supportive care. Patient will be prescribed Robitussin and Claritin. Subacute cough 03/03/2023 02/27/2024 Assessment & Plan (03/05/2023 3:51 PM EST): Recommended supportive care. Patient will be prescribed Robitussin and Claritin. Assessment & Plan (03/03/2023 4:16 PM EST): Patient will have a medication refill. Problems at work 01/31/2023 02/27/2024 Assessment & Plan (02/03/2023 11:38 AM EDT): Patient with symptoms of anxiety. No risk of self-harm, SI or HI. Reason for visit was to assess symptoms and provide referral. Symptoms are present in the context of stress at work and history of severe anxiety. Plan is to refer patient to agency for OP services. Provided psychoeducation around anxiety, panic attacks and provided coping mechanisms to use during episodes. [facility] information provided for same-day appointments as well. At this time Heladio Coby Kaminski meets criteria for Visit Diagnoses: Problem List Items Addressed This Visit Other Anxiety Patient ready to address current needs Yes Strengths include readiness and motivation to address problem PLAN: 1. Follow up with [facility]: Not recommended for follow-up 2. Patient goal is to be connected with long-term therapy services 3. Behavioral Recommendations a. Referral for OP individual therapy b. Incorporate mindfulness techniques into daily routine c. Practice self-care of unknown anatomic location 12/13/2022 02/27/2024 Assessment & Plan (12/13/2022 9:16 AM EDT): Patient following and being evaluated for possible ectopic . Hx of ectopic . Subungual hematoma of foot 07/19/2022 1 04/28/2023 Contact dermatitis 03/10/2012 4 Anemia 10/16/2011 02/27/2024 Encounters Date Type Department Care Team Description 04/08/[address] [address] Ruby Gonzalez MD Nurse Triage 03/28/2025 Patient Outreach [address] [address] Ruby Gonzalez MD Care Management (C3CM follow up call) 02/24/2025 Patient Outreach [address] [address] Ruby Gonzalez MD Care Management (C3 TC #[id number]) 01/31/[address] [address] Ruby Gonzalez MD Care Management ([facility]3CM follow up call) 01/10/2025 Patient Outreach [address] [address] Ruby Gonzalez MD from Last 3 Months Immunizations Immunization Administration Dates Next Due DTaP 04/12/1997, 5,1993,1993,1993,1993 HPV 9-Valent 05/16/2020,10/05/2018 HPV, Quadrivalent 12/18/2006 Hep B, Adolescent or Pediatric 1993,1993,1993 Hep B, adult 10/05/2018 Hib ([facility]) 10/30/1994, 5,1993,1993 IPV 04/12/1997, 4,1993,1993 Influenza injectable quadriv alent IIV4 with preservative 06/25/2017 Influenza injectable quadriv alent preservative free 01/20/2019 MMR 04/12/1997,04/17/1994 PPD Test 09/24/2016 TD (adult), 2 Lf tetanus tox oid, preservative free, adsorbed 11/11/2005 Tdap 06/25/2018 Varicella 12/28/2003 Social History Tobacco Use Types Packs/Day Years Used Date Smoking Tobacco: Never Passive Smoke Exposure: Never Smokeless Tobacco: Never Tobacco Cessation:Counseling Given: Not Answered Alcohol Use Standard Drinks/Week Comments Yes 0 (1 standard drink = 0.6 oz pur e alcohol) Social Alcohol Answer Date Recorded Frequency of Alcohol Consumption Not on file 02/27/2024 Average Number of Drinks Not on file 024 Frequency of Binge Drinking Not on file 04/2023 Score 0 02/27/2024 Depression Answer Date Recorded Patient Health Questionnaire-9 Score 3 08/25/2024 Patient Health Questionnaire-9 Score 3 08/25/2024 Last PHQ-9: Questionnaire Data Not on file 0 08/25/2024 Housing Stability Answer Date Recorded What is your housing situation today? I have housing today, but I am worried about losing housing in the future 07/27/[address] you li ve. Do you have problems with any of the following? None of the above 07/27/2024 Food Insecurity Answer Date Recorded Within the past 12 months, y ou worried that your food would run out before you got money to buy more: Never True 07/27/2024 Within the past 12 months,th e food you bought just didn't last and you didn't have enough money to get more: Never True 04/2024 Transportation Answer Date Recorded In the past 12 months, has l ack of transportation kept you from medical appts, meetings, work or from getting things needed for daily living? No 07/27/2024 Utilities Answer Date Recorded In the past 12 months, has t he electric, gas, oil or water company threatened to shut off services in your home? I am not sure 07/27/2024 Depression Answer Date Recorded Patient Health Questionnaire-2 Score 0 08/25/2024 Internet Access Answer Date Recorded Internet Access Q1 Yes 07/27/2024 Internet Access Q2 Not on file 07/27/2024 Comments No Sex and Gender Information Value Date Recorded Sex Assigned at Female 02/25/2022 10:17 AM EDT Legal Sex Female 10:17 AM EDT Gender Identity Female 02/25/2022 10:17 AM EDT Sexual Orientation Straight 02/25/2022 10 :17 AM EDT Last Filed Vital Signs Vital Sign Reading Time Taken Comments Blood Pressure 114/63 10/22/2024 4:01 PM EDT Pulse 75 10/22/2024 4:01 PM EDT Temperature 36.3 C (97.3 F) 10/22/2024 4:01 PM EDT Respiratory Rate 20 10/22/2024 4:01 PM EDT Oxygen Saturation 99% 10/22/2024 4:01 PM EDT Inhaled Oxygen Concentration - - Weight 83.5 kg (184 lb) 10/22/2024 4:01 PM EDT Height 160 cm (5' 3 ) 10/22/2024 4:01 PM EDT Body Mass Index 32.59 10/22/2024 4:01 PM EDT Plan of Treatment Health Maintenance Due Date Last Done Comments Disability Screening 1995 Family Planning (PISQ) 2008 Pneumococcal Vaccine: Pediatrics (0 to 5 Years) and At-Risk Patients (6 to 49) Years (1 of 2 - PCV) 2012 COVID-19 Vaccine (3 - season) 2024 08/19/2022, 06/14/2022 Influenza Vaccine (#1) 2024 9, 01/20/2019, 06/25/2017, Additional history exists SDOH Screening 07/27/2025 07/27/2024 Alcohol/Substance Use Screening 08/25/2025 08/25/2024 Tobacco Screening 10/22/2025 10/22/2024 Depression Screening 01/31/2026 01/31/2025, 08/26/19 25 Lipid Panel 02/26/2029 02/27/2024 Cervical Cancer Screening 03/09/2029 HPV/Cotest 03/09/2029 03/09/2024, 08/12/2018 Pap Smear 03/09/2029 03/09/2024, 08/12/2018 DTaP/Tdap/Td Vaccines (8 - Td or Tdap) 10/11/2034 10/11/2024, 06/25/2018, 11/11/2005, Additional history exists Zoster Vaccines (1 of 2) 2043 RSV Patients and Patients Aged 60 years or older (1 - 1-dose 75+ series) 2068 HIB Vaccines Completed 10/30/1994, 06/26, 1993, Additional history exists IPV Vaccines Completed 04/12/1997, 08/1993, 1993, Additional history exists Hepatitis B Vaccines Completed 10/05/2018, 1993, 1993, Additional history exists HPV Vaccines Completed 05/16/2020, 04/28, 10/05/2018, Additional history exists HIV Screening Completed 02/27/2024, 12/27, 12/05/2020 Hepatitis C Screening Completed 02/27/2024 , 01/09/2022, 12/05/2020 Hepatitis A Vaccines Aged Out No long er eligible based on patient's age to complete this topic Meningococcal B Vaccine Aged Out No l onger eligible based on patient's age to complete this topic Meningococcal Vaccine Aged Out No jonathon michaelle eligible based on patient's age to complete this topic RSV under 20 months Aged Out No longe r eligible based on patient's age to complete this topic Rotavirus Vaccines Aged Out No longer eligible based on patient's age to complete this topic Procedures Procedure Name Priority Date/Time Associated Diagnosis Comments PAP SMEAR Routine 03/09/2024 11:57 AM EST Cervical cancer screening HPV MRNA E6/E7 REFLEX TO HPV 16, 18/45 Routine 03/09/2024 12:00 AM EST LIPID PANEL, STANDARD Routine 02/27/2024 12:25 PM EDT Class 1 obesity without serious comorbidity with body mass index (BMI) of 30.0 to 30.9 in adult, unspecified obesity type HEPATITIS C AB W/REFL TO HCV RNA, QN, PCR Routine 02/27/2024 12:22 PM EDT Encounter for health-related screening HIV 1/2 ANTIGEN/ANTIBODY, FOURTH GENERATION W/RFL Routine 02/27/2024 12:22 PM EDT Encounter for health-related screening from Last 3 Months or Most Recently Relevant to Health Maintenance Results * Pap Smear (03/09/2024 11:57 AM EST) Swab Cervical swab / Unknown 03/09/2024 11:57 AM EST 03/10/2024 11:00 AM EST [facility] - 03/15/2024 10:18 AM EST ----- ------- Name: Heladio Salmeron Age/Sex: 28/F : 1995 Unit#: [id number] Attend Dr: Ruby Gonzalez MD Re03/09/24 Status: DEP [facility]F [facility] Disch: ----- ------- SPEC : [id number] RECD: 03/10/24 STATUS: GORGE DIAMONDHolger NUM: [id number] JAY: 03/09/24-[address] [facility] [address]: Ruby Gonzalez MD ENTERED: 03/10/24 SP TYPE: Pap Smr OTHR DR: ORDERED: Pap Smear Interpretation Satisfactory for evaluation. Negative for intraepithelial lesion or malignancy. No endocervical cells seen. Coccobacilli consistent with shift in vaginal whitney. HPV High Risk: Negative HPV Genotyping 16: Negative HPV Genotyping 18: Negative Clinical Information LMP: Unknown date Previous PAP test: Unknown date/findings Material Received ThinPrep-Cervical ----- ------- Signed (signature on file) LUX Lugo (ASC) 03/15/24 1018 ----- ------- END OF REPORT Ruby Gonzalez MD LAB CYTOLOGY ORDERABLES Final Result Performing Organization Address [facility] [employer] Phone Number [facility] [address] [place] [phone] * HPV mRNA E6/E7 w/Reflex to HPV Genotypes 16, 18/45 (03/09/2024 12:00 AM EST) Historical Provider MD LAB CYTOLOGY ORDERABLES F inal Result Performing Organization Address [facility] [employer] Phone Number [facility] [address] [place], [place] [phone] * (ABNORMAL) Lipid Panel, Standard (02/27/2024 12:25 PM EDT) Triglycerides 86 <150 mg/dL [facility] Comment:Desirable Triglyceri de: less than 150 mg/dLBorderline High Triglyceride 150-199 mg/dLHigh Triglyceride: 200-499 mg/dLVery High Triglyceride: greater than or equal to 5OO mg/dL Cholesterol 181 <200 mg/dL [facility] Comment:Desirable Cholestero l: less than 200 mg/dLBorderline High Cholesterol: 200-239 mg/dLHigh Cholesterol: greater than 239 mg/dL LDL Cholesterol Calculated 100(H) <100 mg/dL [facility] Comment:Desirable LDL: less than 100 mg/dLNear Optimal/Above Optimal LDL: 110- 129 mg/dLBorderline High LDL: 130-159 mg/dLHigh LDL: 160-189 mg/dLVery High LDL: greater than or equal to 190 mg/dL HDL Cholesterol 64 >40 mg/dL [facility] Comment:Desirable HDL: great er than 40 mg/dL Note: This HDL assay may give artificially low results in patients with liver disease. Blood Venous blood specimen / Unknown 02/27/2024 12:25 PM EDT 02/27/2024 1:20 PM EDT us Ruby Gonzalez MD LAB BLOOD ORDERABLES Final Re sult Performing Organization Address [facility] [employer] Phone Number [facility] [address] [place] [phone] * Hepatitis C Antibody with Reflex to HCV, RNA, Quantitative, Real-Time PCR (02/27/2024 12:22 PM EDT) Hepatitis C Antibody Nonreactive Nonreactive [facility] Comment:Antibodies to HCV no t detected; does not exclude early acuteHCV infection. Blood Venous blood specimen / Unknown 02/27/2024 12:22 PM EDT 02/27/2024 1:20 PM EDT us Ruby Gonzalez MD LAB BLOOD ORDERABLES Final Re sult Performing Organization Address [facility] [employer] Phone Number [facility] [address] [place] [phone] * HIV-1/2 Antigen and Antibodies, Fourth Generation, with Reflexes (02/27/2024 12:22 PM EDT) HIV AB/AG Nonreactive Nonreactive [facility] Comment:HIV-1 p24 Ag and/or HIV-1/HIV-2 Ab not detected.A test result that is nonreactive does not exclude thepossibility of exposure to or infection with HIV-1 and/orHIV-2. Nonreactive results in this assay for individualswith prior exposure to HIV-1 and/or HIV-2 may be due toantigen and antibody levels that are below the limit ofdetection of this assay.The [employer] HIV Ag/Ab Combo assay result andsupplemental assay results should be interpreted inconjunction with the patient's clinical presentation,history and other laboratory results. If the results areinconsistent with clinical evidence, additional testing issuggested to confirm the result. Blood Venous blood specimen / Unknown 02/27/2024 12:22 PM EDT 02/27/2024 1:20 PM EDT us Ruby Gonzalez MD LAB BLOOD ORDERABLES Final Re sult [facility] [address] [place] [phone] from Last 3 Months or Most Recently Relevant to Health Maintenance Insurance [facility] C3 Care Teams Creative Producer Relationship Specialty Start Date End Date Ruby Gonzalez MD [address] [place] [address] PCP - General Family Medicine 08/09/21
--- OUTSIDE RECORDS SUMMARY | 2025-04-09 06:18 | XMS_ITS | Encounter Summary ---
Author Organization [employer] Address [address] [facility] 7t [place] [address] Care Team Providers Care Seo Engineer Name Role Phone Ruby Gonzalez MD Primary Care Provider [phone] Encounter Details Date Type Department Care Team ([facility] st Contact Info) Description 08/24/2024 Orders Only [facility] CHC MED & PEDS [address] [place] [address] Makenna Allen Social History Tobacco Use Types Packs/Day Years Used Date Smoking Tobacco: Never Passive Smoke Exposure: Never Smokeless Tobacco: Never Alcohol Use Standard [...] AM EDT documented as of this encounter Functional Status * Over the past 2 weeks, how often have you been bothered by any of the following problems? Question Answer Date of Assessment Author Patient Health Questionnaire -2 Score 0 08/25/2024 10:54 AM EDT Jb Andrews * Little interest or pleasure in doing things Answer Date of Assessment Author Not at all 08/25/2024 10:54 AM Karma Tompkins i * Feeling down, depressed, or hopeless Answer Date of Assessment Author Not at all 08/25/2024 10:54 AM Karma Tompkins i * Trouble falling or staying asleep, or sleeping too much Answer Date of Assessment Author More than half the days 08/25/2024 10:54 AM Karma Stapleton * Feeling tired or having little energy Answer Date of Assessment Author Several days 08/25/2024 10:54 AM Karma Tompkins i * Poor appetite or overeating Answer Date of Assessment Author Not at all 08/25/2024 10:54 AM Karma Tompkins i * Feeling bad about yourself - or that you are a failure or have let yourself or your family down Answer Date of Assessment Author Not at all 08/25/2024 10:54 AM Karma Tompkins i * Trouble concentrating on things, such as reading the newspaper or watching television Answer Date of Assessment Author Not at all 08/25/2024 10:54 AM Karma Tompkins i * Moving or speaking so slowly that other people could have noticed? Or the opposite - being so fidgety or restless that you have been moving around a lot more than usual. Answer Date of Assessment Author Not at all 08/25/2024 10:54 AM Karma Tompkins i * Thoughts that you would be better off or hurting yourself in some way Answer Date of Assessment Author Not at all 08/25/2024 10:54 AM Karma Tompkins i * Patient Health Questionnaire-9 Score Answer Date of Assessment Author 3 08/25/2024 10:54 AM Karma Tompkins i * How difficult have these problems made it for you to do your work, take care of things at home, or get along with other people? Answer Date of Assessment Author Not difficult at all 08/25/2024 10:54 AM Karma Hernandez * Over the last 2 weeks, how often have you been bothered by any of the following problems? Question Answer Date of Assessment Author Feeling nervous, anxious, or on edge 3 08/25/2024 10:53 AM Jb Stapleton Not being able to stop or co ntrol worrying 2 08/25/2024 10:53 AM Jb Stapleton Worrying too much about diff erent things 2 08/25/2024 10:53 AM Jb Stapleton Trouble relaxing 1 08/25/2024 10:53 AM Karma Stapleton Being so restless that it is hard to sit still 0 08/25/2024 10:53 AM Jb Stapleton Becoming easily annoyed or irritable 0 08/25/2024 10:53 AM Jb Stapleton Feeling afraid as if somethi ng awful might happen 0 08/25/2024 10:53 AM Jb Stapleton KINGS-7 Total Score 8 08/25/2024 10:53 AM EDT Karma Andrews documented as of this encounter Plan of Treatment Not on file documented as of this encounter Procedures Procedure Name Priority Date/Time Associated Diagnosis Comments HPV MRNA E6/E7 REFLEX TO HPV 16, 18/45 Routine 03/09/2024 12:00 AM EST documented in this encounter Results * HPV mRNA E6/E7 w/Reflex to HPV Genotypes 16, 18/45 (03/09/2024 12:00 AM EST) us Historical Provider LAB CYTOLOGY ORDERABLES F inal Result [facility] [address] [place] [phone] documented in this encounter Visit Diagnoses Not on filedocumented in this encounter Additional Health Concerns Assessment Noted Time PHQ-9 Depression Total Score: 6 02/27/20 24 11:24 AM EDT documented as of this encounter Care Teams Seo Engineer Relationship Specialty Start Date End Date Ruby Gonzalez MD [address] [place] [id number] PCP - General Family Medicine 08/09/21 documented as of this encounter
--- OUTSIDE RECORDS SUMMARY | 2025-04-09 06:18 | XMS_ITS | Encounter Summary ---
Author Organization [employer] Address [address] [place] [address] 7 [place] [address] Care Team Providers Care Ice Guard Inspector Name Role Phone Ruby Gonzalez MD Primary Care Provider [phone] Reason for Visit * Reason Comments Med Change Request Encounter Details Date Type Department Care Team ([facility] Contact Info) Description 07/23/2022 Refill [facility] MED & PEDS [address] [place], [place] [phone] Jeremy Mohr MD [address] [place] [address] Allergic rhinitis, unspecified seasonality, unspecified trigger Social History Tobacco Use Types Packs/Day Years Used Date Smoking Tobacco: Never Assessed Comments Unknown Sex and Gender Information Value Date Recorded Sex Assigned at Female 02/25/2022 10:17 AM EDT Legal Sex Female 10:17 AM EDT Gender Identity Female 02/25/2022 10:17 AM EDT Sexual Orientation Straight 02/25/2022 10 :17 AM EDT COVID-19 Exposure Response Date Recorded In the last 10 days, have yo u been in contact with someone who was confirmed or suspected to have Coronavirus/COVID-19? No / Unsure 07/26/2022 9:49 AM EDT documented as of this encounter Plan of Treatment Not on file documented as of this encounter Visit Diagnoses Diagnosis Allergic rhinitis, unspecified seasonality, unspecified trigger documented in this encounter Care Teams Ice Guard Inspector Relationship Specialty Start Date End Date Ruby Gonzalez MD [address] [place] [phone] PCP - General Family Medicine 08/09/21 documented as of this encounter
--- OUTSIDE RECORDS SUMMARY | 2025-04-09 06:18 | XMS_ITS | Clinical Summary ---
Author Organization [facility] Address [address] [place] [address] Phone Care Team Providers Care Art Class Model Name Role Phone Ruby Gonzalez MD Primary Care Provider [phone] Allergies No known active allergies Medications vit,cheri [id number] 27 mg iron- 1 mg tabletIndicatio ns:Irregular menstrual cycle Take 1 tablet by mouth 1 (one) time each day. 30 each 11 05/05/2024 6 Active aspirin 81 mg EC tablet Take 1 tablet (81 mg total) by mouth 1 (one) time each day. 30 each 05/05/2024 6 Active hydrOXYzine pamoate (VistariL) 25 mg capsule Take 1 capsule (25 mg total) by mouth every 6 (six) hours if needed for anxiety. 30 capsule 1 06/22/2024 Active Active Problems Problem Noted Date Diagnosed Date Vulvar boil 07/27/2024 Assessment & Plan (07/27/2024 3:22 PM EDT): Resolving. Likely due to increased sweating. Anxiety in , antepartum 06/22/2024 Overview (06/22/2024): EPDS 6 06/22/2024 Started on vistaril prn Assessment & Plan (07/27/2024 3:21 PM EDT): Continue Vistaril prn and work on getting therapist. 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 FOB test- they are not together care, subsequent in first tri cathyter 06/07/2024 Overview (06/18/2024): 1. [facility] site: [facility]: [address] [place] [address] ([phone]) 2. Delivery site: [facility] 3. 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 Dating criteria: LMP 5. Blood type: 6. 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 GBS: Date: 7. FOB name: Jose Jarquin 8. Plans A. Epidural or other pain management - B. Labor support identified - C. Tdap - Date: Flu - Date: D. Breast or Bottle feed: Both Breast and Bottle feeding E. Baby's name - F. Circumcision - 9. Hospital Course: Mild intermittent asthma without complication Traumatic avulsion of nail plate of toe 02/03/20 24 Migraine headache with aura 05/16/2020 Resolved Problems Problem Noted Date Diagnosed Date Resolved Date Moderate episode of recurren t major depressive disorder 08/27/2023 07/27/2024 Anxiety 01/31/2023 07/27/2024 Immunizations Immunization Administration Dates Next Due HPV 9-valent (Gardisil) 9yo to less than 46yo PPD Test 09/24/2016 Surgical History Surgery Date Site/Laterality Comments OTHER SURGICAL HISTORY 1994 PROCEDURE: [place] UNLISTED PROCEDURE SMALL INTESTINE Medical History Medical History Date Comments Anemia DX:Anemia Anxiety state DX:Anxiety state History of vitamin D deficiency 02/01/2016 DX:History of vitamin D deficiency; COMMENT: Vitamin D = 18 Bacterial vaginosis 02/01/2016 DX:Bacterial vaginosis Vaginal yeast infection 02/01/2016 DX:Vagin al yeast infection Migraines DX:Migraines; CO MMENT: with aura History of ectopic 12/12/2022 DX: History of ectopic Anxiety 01/31/2023 Moderate episode of recurren t major depressive disorder ([facility] V24, [facility] V28) 08/27/2023 Family History Medical History Relation Name Comments Other cancer Aunt cervical cancer Colon cancer Father Arthritis Maternal Grandmother Asthma Mother Diabetes type II Mother Hypertension Mother Brain cancer Other cousin Dementia Paternal Grandmother heart condition Paternal Grandmother Diabetes Sister 1 Cancer of endocervix ([facility]) Sister 2 Breast cancer Neg Hx Cancer of Small Bowel Neg Hx Cervical cancer Neg Hx Kidney cancer Neg Hx Ovarian cancer Neg Hx Pancreatic cancer Neg Hx Prostate cancer Neg Hx Relation Name Status Comments Aunt Brother Alive Father Maternal Grandfather Maternal Grandmother Alive Mother Other cousin Alive Paternal Grandfather Paternal Grandmother Alive Sister 1 Sister 2 Alive Sister 3 Alive Social History Tobacco Use Types Packs/Day Years Used Date Smoking Tobacco: Never Smokeless Tobacco: Never Alcohol Use Standard Drinks/Week Comments Yes 0 (1 standard drink = 0.6 oz pur e alcohol) not since + Comments No Sex and Gender Information Value Date Recorded Sex Assigned at Not on file Legal Sex Female 11:14 AM EST Gender Identity Not on file Sexual Orientation Not on file Obstetrics History * This document contains information received from the source organization and may not represent a complete record from that organization. Para Term AB IAB SAB Ectopic Multiple Livin g Live Births 4 1 Date Outcome GA Total Labor Labor/2nd/3rd Weight Sex Type Anes PTL Nancy A1 A5 Name Clin 2021 Ectopic Medical Charleen 3 3 Last Filed Vital Signs Vital Sign Reading Time Taken Comments Blood Pressure 113/57 08/20/2024 3:48 PM EDT Pulse 73 08/20/2024 3:48 PM EDT Temperature - - Respiratory Rate 15 08/20/2024 3:48 PM EDT Oxygen Saturation - - Inhaled Oxygen Concentration - - Weight 76.3 kg (168 lb 3.2 oz) 08/20/2024 3:48 P M EDT Height 157.5 cm (5' 2 ) 07/27/2024 3:00 PM EDT Body Mass Index 30.76 07/27/2024 3:00 PM EDT Plan of Treatment Health Maintenance Due Date Last Done Comments Pneumococcal Vaccine: Pediatrics (0 to 5 Years) and At-Risk Patients (6 to 49 Years) (1 of 2 - PCV) 2012 Social Influencers of Health Screening 03/26/2022 COVID-19 Vaccine (3 - season) 2024 08/19/2022, 06/14/2022 Influenza Vaccine (#1) 2024 01/20/2019, 2017 DTaP,Tdap,and Td Vaccines (8 - Td or Tdap) 06/25/2028 06/25/2018, 11/11/2005, 04/12/1997, Additional history exists Cervical Cancer Screening: HPV 10/22/2028 10/23/2023 Cholesterol Screening (Lipid Panel) 02/26/2029 02/27/2024 RSV Immunization Adult Patients (1 - 1-dose 75+ series) 2068 HIB Vaccines Completed 10/30/1994, 06/26, 1993, Additional history exists IPV Vaccines Completed 04/12/1997, 08/1993, 1993, Additional history exists MMR Vaccines Completed 04/12/1997, 04/17/1994 Varicella Vaccines Aged Out 12/28/2003 No longer eligible based on patient's age to complete this topic Hepatitis B Vaccines Completed 10/05/2018, 1993, 1993, Additional history exists HPV Vaccines Completed 05/16/2020, 09/26, 12/18/2006 Depression Screening Completed 06/06/2024 HIV Screening Completed 06/07/2024, 04/2023, 10/23/2023, Additional history exists Hepatitis C Screening Completed 06/07/2024 , 02/27/2024, 10/23/2023 Hepatitis A Vaccines Aged Out No long er eligible based on patient's age to complete this topic Meningococcal ACWY Vaccine Aged Out N o longer eligible based on patient's age to complete this topic Meningococcal B Vaccine Aged Out No l onger eligible based on patient's age to complete this topic RSV Immunization Patients Under 20 months Aged Out No longer eligible based on patient's age to complete this topic Procedures Procedure Name Priority Date/Time Associated Diagnosis Comments HEPATITIS C ANTIBODY Routine 06/07/2024 11:38 AM EST care, subsequent in first trimester HIV 1, 2 ANTIBODY, P24 ANTIGEN WITH REFLEX TO DIFFERENTIATION Routine 06/07/2024 11:38 AM EST care, subsequent in first trimester HM HPV Routine 10/23/2023 from Last 3 Months or Most Recently Relevant to Health Maintenance Results * Hepatitis C antibody (06/07/2024 11:38 AM EST) Hepatitis C Antibody Negative Negative LAB CHEMISTRY METHOD 06/07/2024 3:06 PM EST [facility] Blood Venous blood specimen / Unknown Venipuncture / Unknown 06/07/2024 11:38 AM EST 06/07/2024 11:38 AM EST Cate Vidal [facility] LAB BLOOD ORDERABLES Final Resu lt [facility] [address] [place] [address], [place] [phone] * HIV 1,2 antibody, p24 antigen with reflex to differentiation (06/07/2024 11:38 AM EST) Pathologist [facility] HIV Combo AB/AG Negative Negative LAB CHEMISTRY METHOD 06/07/2024 3:07 PM EST [facility] Blood Venous blood specimen / Unknown Venipuncture / Unknown 06/07/2024 11:38 AM EST 06/07/2024 11:38 AM EST Narrative [facility] - 06/07/2024 3:07 PM EST This assay is a 4th generation assay allowing for earlier detection of HIV infection by detecting the presence of the HIV-1 p24 antigen as well as the traditional antibodies to HIV type 1 (including group O) and type 2. Use of a 4th generation assay is the current CDC recommendation for HIV screening. Cate Vidal [facility] BLOOD ORDERABLES Final Resu lt [facility] [address] [place] [address], * Cervical Cancer Screening: HPV (10/23/2023) Cervical Cancer Screening: HPV negative, abstracted us Historical Provider HEALTH MAINTENANCE Final Result from Last 3 Months or Most Recently Relevant to Health Maintenance Insurance MEDICAID - [place] Care Teams Art Class Model Relationship Specialty Start Date End Date Ruby Gonzalez MD [address] [place] [phone] PCP - General Family Medicine 05/05/24
--- OUTSIDE RECORDS SUMMARY | 2025-04-09 06:18 | XMS_ITS | Encounter Summary ---
Author Organization [employer] Address [address] [facility] [address] [place] [address] Care Team Providers Care Grain Trimmer Name Role Phone Ruby Gonzalez MD Primary Care Provider [phone] Reason for Visit * Reason Onset Date Comments Nurse Triage 04/08/2025 Encounter Details Date Type Department Care Team ([facility] Contact Info) Description 04/08/2025 Telephone [facility] [address] [place] [address] Ruby Gonzalez MD [address] [place] [phone] Nurse Triage Social History Tobacco Use Types Packs/Day Years [...] AM EDT documented as of this encounter Miscellaneous Notes * Telephone Encounter - Yolanda Goss RN - 04/08/2025 3:00 PM EST Telephone call to pt who reports left arm pain x3 days. States she thinks it is due to carrying her3 month old frequently in that arm. Has history of broken left elbow - pain is 10/10 without medication - pain was tolerable x2 days but worse today - unaware of injury -denies redness, fever, rash, hot/hard areas - reports mild swelling around upper elbow RN advised pt if pain is severe, can go to [facility] today. Advised her of [facility] Friday clinic. Pt states she will come to Friday clinic if arm pain continues tomorrow, especially with any OTC pain relievers. Educated on homecare as below. Pt will try to use other arm to hold baby for now. Pt in agreement with plan, no further questions. Protocol Used: Arm Pain (Adult) Protocol-Based Disposition: Go to Office or Video Visit Now Positive Triage Question: * Severe pain (e.g., excruciating, unable to do any normal activities) * All higher-acuity triage questions were negative. Care Advice Discussed: * Use a Cold Pack for Pain * Rest * Pain Medicines * Reasons To Call Back - Severe pain lasts over 2 hours after pain medicine - Moderate pain (such as interferes with normal activities) lasts more than 3 days - Mild pain lasts more than 7 days - Arm swelling occurs - Signs of infection occur (such as spreading redness, warmth, fever) - You become worse * Telephone Encounter - Tona Joce - 04/08/2025 1:42 PM EST Symptom: Arm Pain - Not From Injury Outcome: Schedule an urgent appointment (within 1 hour) or talk to a nurse or provider soon Reason: Can't use the arm normally The caller accepted this outcome. Pcp Dr. Gonzalez documented in this encounter Plan of Treatment Not on file documented as of this encounter Visit Diagnoses Not on filedocumented in this encounter Additional Health Concerns Assessment Noted Time PHQ-9 Depression Total Score: 3 08/26/19 25 10:54 AM EDT documented as of this encounter Care Teams Grain Trimmer Relationship Specialty Start Date End Date Ruby Gonzalez MD [address] [place] [address] PCP - General Family Medicine 08/09/21 documented as of this encounter
--- OUTSIDE RECORDS SUMMARY | 2025-04-09 06:18 | XMS_ITS | Encounter Summary ---
Author Organization [employer] Address [address] [facility] [address] [place] [address] Care Team Providers Care Shellfish Manager Name Role Phone Ruby Gonzalez MD Primary Care Provider [phone] Encounter Details Date Type Department Care Team ([facility] Contact Info) Description 09/10/2022 Abstract [facility] CHC MED & PEDS [address] [place], [place] [phone] Ruby Gonzalez MD [address] [place] [address] Social History Tobacco Use Types Packs/Day Years Used Date Smoking Tobacco: Never Smokeless Tobacco: Never Alcohol Use Standard Drinks/Week Comments Yes 0 (1 standard drink = 0.6 oz pur e alcohol) Comments No Sex and Gender Information Value [...] suspected to have Coronavirus/COVID-19? No / Unsure 09/03/2022 11:10 AM EDT documented as of this encounter Plan of Treatment Not on file documented as of this encounter Procedures Procedure Name Priority Date/Time Associated Diagnosis Comments HM PAP/HPV Routine 08/12/2018 12:00 AM EDT documented in this encounter Results * Hm Pap Smear (08/12/2018 12:00 AM EDT) Historical Provider HEALTH MAINTENANCE Final Result documented in this encounter Visit Diagnoses Not on filedocumented in this encounter Care Teams Shellfish Manager Relationship Specialty Start Date End Date Ruby Gonzalez MD [address] [place] [phone] PCP - General Family Medicine 08/09/21 documented as of this encounter
--- OUTSIDE RECORDS SUMMARY | 2025-04-09 06:18 | XMS_ITS | Encounter Summary ---
Author Organization [facility] Address [address] [place] [phone] Phone Care Team Providers Care Catalyst Manufacturing Operator Name Role Phone Ruby Gonzalez MD Primary Care Provider [phone] Encounter Details Date Type Department Care Team (Late st Contact Info) Description 12/06/2021 Procedure Pass OR Admitting Dept - [facility] Department [address] [place] [phone] Social History Tobacco Use Types Packs/Day Years Used Date Smoking Tobacco: Never Smokeless Tobacco: Never Alcohol Use Standard Drinks/Week Comments Yes 3 (1 standard drink = 0.6 oz pur e alcohol) Comments No Sex and Gender Information Value Date Recorded Sex Assigned at Not on file Legal Sex Female 4:09 PM EDT Gender Identity Not on file Sexual Orientation Not on file documented as of this encounter Plan of Treatment Not on file documented as of this encounter Visit Diagnoses Not on filedocumented in this encounter Care Teams Catalyst Manufacturing Operator Relationship Specialty Start Date End Date Ruby Gonzalez MD PCP - General Family Medicine 12/03/21 documented as of this encounter Additional Source Comments The information contained in this document represents components of the legal health record. It is not the complete legal health record.[facility]
--- OUTSIDE RECORDS SUMMARY | 2025-04-09 06:18 | XMS_ITS | Data Portability ---
Author Organization [place] - [facility], Allergy Address [address] [address] Care Team Providers Care Referral Agent Name Role Phone MARY ELLEN ARMSTRONG Primary Care Provider Assessment No assessment recorded. Plan of Treatment Reminders Order Date Submit Date Provider Last Modified By Organization Details Last Modified Time Details Appointments None record ed. Lab None record ed. Referral None record ed. Procedures None record ed. Surgeries None record ed. Imaging None record ed. Medication Orders None record ed. Patient TargetsNo targets recorded. Patient InstructionsNo instructions recorded. Reason for Referral None Reported. Problems Name Problem SNOMED Code Status Onset Date Resolution Date Notes Provider Name and Address Organization Details Recorded Time Closed fracture of nasal bones 04423046 Active 2021 Fracture of nasal bones, initial encounter for closed fracture; Note: Date Diagnosed: 11/29/2021 4:38 PM (S02.2XXA) Not Available [facility] 4 02:28:50 Fractured nasal bones 165295724 Active 2021 Fracture of nasal bones, subsequent encounter for fracture with routine healing; Note: Date Diagnosed: 12/03/2021 3:35 PM (S02.2XXD) Not Available [facility] 4 02:29:16 Follow-up visit Active 2021 Medical surveillan ce following completed treatment; Note: Date Diagnosed: 12/13/2021 2:06 PM (Z09) Not Available [facility] 4 02:28:55 Recurrent bleeding of nose Active 2024 ANA LAURA BEAUCHAMP MD [address] [facility] 100, [place], [address] , [place] - [facility] 16:35:50 Problem Notes None recorded. Medical Equipment None Reported. Medications Name Sig Start Date Stop Date Status Note LastModified by Organization Details LastModified Time amoxicillin 500 mg capsule TAKE 1 CAPSULE BY MOUTH 3 TIMES A DAY FOR 10 DAYS 11/16 completed Not Available Not Available Not Available terconazole 0.4 % vaginal cream INSERT 1 APPLICATO RFUL VAGINALLY AT BEDTIME FOR 7 DAYS. 11/16 completed Not Available Not Available Not Available ibuprofen 800 mg tablet TAKE 1 TABLET BY MOUTH 3 TIMES DAILY. 11/16 completed Not Available Not Available Not Available ondansetron HCl 4 mg tablet TAKE 1 TABLET BY MOUTH EVERY 8 HOURS NEEDED FOR NAUSEA OR FOR VOMITING FOR UP TO 7 DAYS 11/16 completed Not Available Not Available Not Available metronidazo le 500 mg tablet TAKE 1 TABLET BY MOUTH 2 TIMES DAILY FOR 7 DAYS 11/16 completed Not Available Not Available Not Available bacitracin zinc 500 unit/gram topical ointment APPLY TO AFFECTED AREA TWICE A DAY 11/16 completed Not Available Not Available Not Available omeprazole 40 mg capsule,del ayed release TAKE 1 CAPSULE (40 MG) BY MOUTH BEFORE BREAKFAST AND BEFORE EVENING MEAL. DO NOT CRUSH OR CHEW 11/16 completed Not Available Not Available Not Available aspirin 81 mg tablet,adan yed release TAKE 1 TABLET BY MOUTH ONCE A DAY. 11/16 completed Not Available Not Available Not Available triamcinolo ne acetonide 0.1 % topical cream APPLY TOPICALLY IF NEEDED IN THE MORNING AND AT BEDTIME FOR PAIN AND SWELLING 11/16 completed Not Available Not Available Not Available clotrimazol e 1 % topical solution APPLY TOPICALLY 2 TIMES A DAY TO NAILS AND SKIN 11/16 completed Not Available Not Available Not Available ondansetron 4 mg disintegrat ing tablet DISSOLVE 1 TABLET ON TONGUE EVERY 8 HOURS IF NEEDED FOR NAUSEA OR VOMITING 11/16 completed Not Available Not Available Not Available clotrimazol e 1 % topical cream APPLY TO SKIN AND TOENAILS DAILY FOR 12 WEEKS 11/16 completed Not Available Not Available Not Available Ventolin HFA 90 mcg/actuati on aerosol inhaler INHALE 2 PUFFS EVERY 4 HOURS IF NEEDED FOR WHEEZING. 11/16 completed Not Available Not Available Not Available hydroxyzine pamoate 25 mg capsule TAKE 1 CAPSULE BY MOUTH EVERY 6 HOURS IF NEEDED FOR ANXIETY 11/16 completed Not Available Not Available Not Available active Not Available Not Avai lable Not Available Nighttime Sleep-Aid (doxylamine ) 25 mg tablet TAKE 1 TABLET BY MOUTH EVERY DAY AT BEDTIME NEEDED FOR SLEEP 11/16 completed Not Available Not Available Not Available M-Deborah Plus 27 mg iron-1 mg tablet TAKE 1 TABLET BY MOUTH ONCE DAILY 11/16 completed Not Available Not Available Not Available Wegovy 0.25 mg/0.5 mL subcutaneou s pen injector INJECT 0.25 MG SUBCUTANE OUSLY ONCE PER WEEK 11/16 completed Not Available Not Available Not Available Vitals Date Recorded Body height Body mass index (BMI) Body weight Provider Name and Address Organization Details Last Updated DateTime 11/16/2024 157.48 cm 33.7 kg/m2 60589 g Hans Espitia [place] - [facility] 11/16/2024 15:56:47 Social History None recorded. Functional Status None recorded. Mental Status None recorded. Family History Nothing Reported. Medical History No medical history recorded. Gynecological HistoryNo gynecological history recorded. Obstetrics History GPAL:G 0 P 0 0 0 0 Past Encounters Encounter ID Performer Location Encounter Start Date Encounter Closed Date Diagnosis/Indication Diagnosis SNOMED-CT Code Diagnosis ICD10 Code Diagnosis IMO Codes Diagnosis Note [id number] ANA LAURA BEAUCHAMP MD [facility] [address] [address] 11/16/2024 15:32:44 11/16/2024 16:30:11 Recurrent bleeding of nose 5348397563 102 R04.0 [id number] No active bleeding was seen on exam. Nasal cautery was deferred. We discussed the importance of nasal moisture preventing nosebleeds . Specifical ly we discussed using a saline spray daily, humidifier , and using vaseline with a finger at night applied to the septum. If there is continued bleeding I asked the patient to call and we will consider nasal cautery at follow up. Health Concerns Section Related Observation LastModified by Organization Detai ls LastModified Time None Recorded Concern Status LastModified by Organization Details LastModified Time None Recorded Advance Directives Directive None Recorded Payers Insurance Date Sequence Insurance Name Policy Number Policy Woods Covered Member ID Woods Member ID Guarantor Name 11/16/2024 1 [place] [facility] Heladio Tenorio-D ia [id number] Heladio Tenorio Notes Date Note Type Note Provider Name and Address Organization Details Recorded Time 11/16/2024 text/html ROS as noted in the HPI Hx of epistaxis 2-3 times per week mainly on the right. She is 33 weeks . This has been worse since she is . She has not moisturized in her nose. ANA LAURA BEAUCHAMP MD [address] [place] [address], [id number], [facility] - [facility] 11/16/2024 16:36:43 OBGyn Episode No OBEpisode recorded.
--- OUTSIDE RECORDS SUMMARY | 2025-04-09 06:18 | XMS_ITS | Encounter Summary ---
Author Organization [employer] Address [address] [facility] [address] [place] [address] Care Team Providers Care Certified Respiratory Therapist Name Role Phone Ruby Gonzalez MD Primary Care Provider Encounter Details Date Type Department Care Team ([facility] Contact Info) Description 03/04/2024 Telephone [facility] MEDICINE [address] [place] [address] Ruby Gonzalez MD [address] [place] [address] Social History Tobacco Use Types Packs/Day Years [...] Answer Date Recorded Patient Health Questionnaire-9 Score 6 02/27/2024 Patient Health Questionnaire-9 Score 6 02/27/2024 Last PHQ-9: Questionnaire Data Not on file 1 04/28/2023 Housing Stability Answer Date Recorded What is [...] Answer Date Recorded Patient Health Questionnaire-2 Score 2 02/27/2024 Comments No Sex and Gender Information Value [...] documented as of this encounter Care Teams Certified Respiratory Therapist Relationship Specialty Start Date End Date Ruby Gonzalez MD [address] [place] [address] PCP - General Family Medicine 08/09/21 documented as of this encounter
--- OUTSIDE RECORDS SUMMARY | 2025-04-09 06:18 | XMS_ITS ---
Author Organization [employer] Address [address] [place] [address] 7 [place] [address] Care Team Providers Care Research Intern Name Role Phone Ruby Gonzalez MD Primary Care Provider [phone] CM High Risk Maternity Status:Enrolled (Active) Start date:07/23/2024 Enrollment date:08/25/2024 Enrollment reason:Risk Strat Overview HRM- Risk Strat Case Team Name Relationship Phone Karma Andrews(Responsible Staff) Registered Nurse [phone] Continued Care and Services Coordination
--- OUTSIDE RECORDS SUMMARY | 2025-04-09 06:18 | XMS_ITS | Encounter Summary ---
Author Organization [employer] Address [address] [place] [address] [address] [place] [address] Care Team Providers Care Fingerprint Expert Name Role Phone Ruby Gonzalez MD Primary Care Provider [phone] Reason for Visit * Reason Comments Med Change Request Encounter Details Date Type Department Care Team ([facility] Contact Info) Description 07/19/2022 Refill [facility] [address] [place], [place] [phone] Ruby Gonzalez MD [address] [place] [address] Allergic rhinitis, unspecified seasonality, unspecified trigger Social [...] suspected to have Coronavirus/COVID-19? No / Unsure 07/19/2022 2:36 PM EDT documented as of this encounter Plan of Treatment Not on file documented as of this encounter Visit Diagnoses Diagnosis Allergic rhinitis, unspecified seasonality, unspecified trigger documented in this encounter Care Teams Fingerprint Expert Relationship Specialty Start Date End Date Ruby Gonzalez MD [address] [place] [id number] PCP - General Family Medicine 08/09/21 documented as of this encounter
--- OUTSIDE RECORDS SUMMARY | 2025-04-09 06:18 | XMS_ITS | Clinical Summary ---
Author Organization [facility] Address [address] [facility] [address] [place] [address] Phone Care Team Providers Care [employer] Taleo Manager Name Role Phone Ruby Gonzalez MD Primary Care Provider [phone] Allergies No known active allergies Medications omeprazole (PRILOSEC) 20 MG capsule Take 20 mg by mouth 2 (two) times a day. Only takes as needed 1-2 tabs daily as needed Active acetaminophen (TYLENOL) 325 mg tablet Take 650 mg by mouth every 6 (six) hours as needed for mild pain. Active ibuprofen (ADVIL,MOTRIN) 600 MG tablet Take 600 mg by mouth every 6 (six) hours as needed for pain (specific location in comments). Active doxycycline hyclate (DORYX) 100 MG tablet Take 100 mg by mouth 2 (two) times a day. Active amoxicillin-cla vulanate (AUGMENTIN) 875-125 mg per tablet Take 1 tablet by mouth 2 (two) times a day. Active Active Problems No known active problems Social History Tobacco Use Types Packs/Day Years Used Date Smoking Tobacco: Never Smokeless Tobacco: Never Alcohol Use Standard Drinks/Week Comments Yes 3 (1 standard drink = 0.6 oz pur e alcohol) Education Answer Date Recorded Are you interested in more education? Not on sundeep e 08/24/2022 Are you concerned about learning? Not on file 08/24/2022 No 08/24/2022 No 08/24/2022 Digital Access Answer Date Recorded No 09/24/2022 No 09/24/2022 Reliable internet access at home? Not on file 09/24/2022 Device with a working camera? Not on file Comments No Sex and Gender Information Value Date Recorded Sex Assigned at Not on file Legal Sex Female 4:09 PM EDT Gender Identity Not on file Sexual Orientation Not on file Last Filed Vital Signs Vital Sign Reading Time Taken Comments Blood Pressure 134/63 12/06/2021 11:15 AM EDT Pulse 57 12/06/2021 11:15 AM EDT Temperature 36.2 C (97.2 F) 12/06/2021 11:15 AM EDT Respiratory Rate 16 12/06/2021 11:15 AM EDT Oxygen Saturation 100% 12/06/2021 11:15 AM EDT Inhaled Oxygen Concentration - - Weight 69.9 kg (154 lb) 12/04/2021 1:09 PM EDT Height 157.5 cm (5' 2 ) 12/04/2021 1:09 PM EDT Body Mass Index 28.17 12/04/2021 1:09 PM EDT Plan of Treatment Health Maintenance Due Date Last Done Comments Adult Td,Tdap Booster 1993 DEPRESSION SCREENING 2005 HEPATITIS C SCREENING 2011 HIV ONE-TIME SCREENING (18-6 5 YEARS) 2011 PAP SMEAR 2014 INFLUENZA VACCINE (#1) 2024 COVID-19 VACCINE (2024-2 6 season) 2024 SMOKING STATUS SCREENING (On ce After 26 Yrs) Completed 12/06/2021 HEPATITIS A VACCINES Aged Out No long er eligible based on patient's age to complete this topic HIB VACCINES Aged Out No longer eligi ble based on patient's age to complete this topic MENINGOCOCCAL VACCINES (ACWY) Aged Out No longer eligible based on patient's age to complete this topic MENINGOCOCCAL VACCINES (B) Aged Out N o longer eligible based on patient's age to complete this topic PNEUMOCOCCAL VACCINES (0-49 years) Aged Out No longer eligible based on patient's age to complete this topic Medical Devices Not on file Insurance [facility] [place] [address] C[employer] [address] [place] [address] [place] [address] [place] [address] [place] [address] C[employer] [facility] C[employer] ACO Care Teams [employer] Tale[employer] Manager Relationship Specialty Start Date End Date Ruby Gonzalez MD PCP - General Family Medicine 12/03/21 Additional Source Comments The information contained in this document represents components of the legal health record. It is not the complete legal health record.[facility]
--- NOTE | 2025-04-09 06:20 | ED.EXTPRO ---
HPI - Extremity Problem General Chief complaint: Extremity Problem Stated complaint: left arm numbness Time Seen by Provider: 04/09/25 06:12 Source: patient Mode of arrival: ambulatory Limitations: no limitations History of Present Illness ED Provider: DR. Bhagat HPI Narrative: 29-year-old female came in for evaluation of left neck/left arm pain started 2-3 days ago, no recent injury, no recent fall no recent heavy lifting, no fever, no chills, no trauma pain started back of her left shoulder radiates down to her left arm, patient history of left arm fracture but denies any recent trauma or fall, no weakness, no numbness. Related Data Home Medications ?Medication ?Instructions ?Recorded ?Confirmed omeprazole 40 mg capsule,delayed 1 cap PO BID 07/29/21 07/29/21 release Previous Rx's ?Medication ?Instructions ?Recorded ondansetron 4 mg disintegrating 4 mg PO Q8H PRN nausea and 06/24/23 tablet vomiting #20 tabs ibuprofen 800 mg tablet 800 mg PO Q8H PRN pain #7 tabs 04/09/25 Allergies Allergy/AdvReac Type Severity Reaction Status Date / Time No Known Allergies Allergy Verified 04/09/25 05:25 Review of Systems Review of Systems: All other systems are reviewed and are negative Constitutional: Reports as per HPI and Reports no additional constitutional complaints Eyes: Reports as per HPI and Reports no additional eye complaints Reports system reviewed and no additional complaints, except as documented Cardiovascular: Reports as per HPI and Reports no additional cardiovascular complaints Respiratory: Reports as per HPI and Reports no additional respiratory complaints Gastrointestinal: Reports as per HPI and Reports no additional gastrointestinal complaints Genitourinary: Reports no additional female genitourinary complaints Musculoskeletal: Reports no additional musculoskeletal complaints Skin/Breast: Reports system reviewed and no additional complaints, except as docu Psychiatric: Reports no additional psychiatric complaints Endocrine: Reports no additional endocrine complaints Hematologic/Lymphatic: Reports no additional hematologic/lymphatic complaints Allergic/Immunologic: Reports no additional allergic/immunologic complaints Reports system reviewed and no additional complaints, except as documented and Reports Abnormal speech present ON LICENSE OF [facility] Past Medical History Medical History Ectopic No known health problems Surgical History History of intestinal surgery Social History Social History Patient Tobacco Use Status: Never used Tobacco Substance Use Type: Marijuana Advance Directives: Yes Advance Directives on File: Yes Advance Directives Date on File: 07/31/21 service: No Physical Exam Vital Signs: Vital Signs: Last Vital Signs Temp 98.2 F 04/09/25 06:00 Pulse 65 04/09/25 07:42 Resp 18 04/09/25 07:42 BP 112/60 04/09/25 07:42 Pulse Ox 99 04/09/25 07:42 O2 Del Method Room Air 04/09/25 07:42 BMI result Body Mass Index 31.1 Vital signs have been reviewed and appear to be correct. Blood pressure elevated. Heart rate normal. Respiratory rate normal. Temperature normal. Oxygen saturation normal. Appearance: Alert. Oriented X3. No acute distress. Head: Normal external exam. Normocephalic. Atraumatic. No Diaz signs noted. No raccoon eyes noted Eyes: PERRLA. EOMI. Conjunctiva and sclera normal. Eyelids normal. ENT: TM's Normal. Pharynx normal. Uvula midline. Moist mucous membranes. No trismus noted. No drooling noted. No muffled voice noted. Neck: Normal inspection. Neck supple. FROM. Increased left arm pain with turning the head to the right side, No adenopathy. Thyroid Normal. No meningeal signs. No neck mass noted. CVS: Normal heart rate and rhythm. Heart sound normal. No murmurs noted. Pulses normal throughout. Respiratory: No respiratory distress. Painless inspiration. Breath sounds normal. No wheezes/rales/rhonchi noted. Chest nontender. No accessory muscle usage noted or decreased air movement noted. Abdomen: Soft and nontender. Bowel sounds normal in all 4 quadrants. No distention noted. No organomegaly noted. No visible injury noted. Back: No CVA tenderness. Full range of motion noted. Skin: Skin warm and dry. Normal skin color. Normal skin turgor. No rashes/lesions/lacerations noted. Extremities: No lower extremity edema. Extremities exhibit normal range of motion. Extremities nontender. Neuro: Mental status: Normal attention, orientation, memory, and affect. Cranial nerves: Pupils are equal, round and reactive to light, EOMI, visual marie are fall, face is symmetric, facial sensations are normal. Motor examination normal muscle tone, strength to 4 extremities. DTR are +2, planter's are flexor. Sensory exam; normal coordination, no ataxia, gait stable. Cerebellar exam: [id number] and bddx-[id number] is normal. Extrapyramidal system: No tremors, no rigidity with normal facial expressions. Pronator drift not present Course Reevaluation(s) Reevaluation #1: 29-year-old female presented with left cervical radiculopathy symptoms, patient feels better with NSAIDs, patient was instructed to rest, avoid doing any strenuous heavy lifting or exercising and follow-up with PCP. Time: 08:00 Medications Administered Discontinued Medications Generic Name Dose Route Start Last Admin Trade Name Freq PRN Reason Stop Dose Admin Ibuprofen 600 mg 04/09/25 06:18 04/09/25 06:41 Ibuprofen 600 Mg Tablet PO 04/09/25 06:19 600 mg ONCE ONE Administration Medical Decision Making Differential Diagnosis Differential Diagnoses: The differential diagnosis associated with the presentation includes (Cervical radiculopathy, rotator cuff tendinitis, shoulder fracture or dislocation, ACS.) Admission/Observation Consideration of admission/observation: Escalation of care including admission/observation considered Lab Data MDM Lab Attestation statement: I reviewed the patient's lab results. Independent Interpretation I performed an independent interpretation of an: Plain X-Ray (Left shoulder/humerus: No acute findings.) Radiology Impression Discussion of test interpretation with radiology: I have reviewed the radiologist's reading. Discharge Plan Discharge Clinical Impression: Cervical radiculopathy Patient Disposition: Home, Self-Care Instructions: Cervical Radiculopathy (ED) Prescriptions: New ibuprofen 800 mg tablet 800 mg PO Q8H PRN (Reason: pain) Qty: 7 0RF No Action omeprazole 40 mg capsule,delayed release(DR/EC) 1 cap PO BID ondansetron 4 mg tablet,disintegrating 4 mg PO Q8H PRN (Reason: nausea and vomiting) Qty: 20 0RF Referrals: [facility] [Primary Care Provider, Medical] Print Language: Iranian
[2025-04-09 07:42] VITALS: BP 112/60; PULSE 65; RESP 18; O2SAT 99
[2025-04-09 09:56] VITALS: BP 112/60; PULSE 65; RESP 18; TEMP -17.7; TEMP 0; O2SAT 99
== END 2025-04-09 09:56 | disposition home or self-care (01) ==
PROVIDERS: Emergency Provider Emergency Medicine
DX: M54.12 Radiculopathy, cervical region (principal); R20.0 Anesthesia of skin; M79.602 Pain in left arm; M25.512 Pain in left shoulder
CPT/HCPCS: 73030; 73060; 99283; 99284

== ENCOUNTER → 2025-04-09 06:18 | Outpatient (BNV) | payer MEDICAID, SELFPAY | PROVIDERS: Emergency Provider Emergency Medicine; Visit Provider Specialist | DX: M25.512 Pain in left shoulder (principal); M79.622 Pain in left upper arm | CPT/HCPCS: 73030; 73060 ==